=== PATIENT | female | born 1970 | race Hispanic/Latino ===

== ENCOUNTER 2020-01-22 07:59 | Outpatient (CLI) | payer OTHER, SELFPAY ==
--- NOTE | ~2020-01-22 | MM_ITS ---
EXAMINATION: MM screening [facility] w barbara HISTORY: Screening TECHNIQUE: Craniocaudal and mediolateral oblique 3-D tomosynthesis images were obtained and synthetic 2-D images were generated. CAD analysis was submitted and interpreted. COMPARISON: Comparison to multiple prior studies sequentially, with oldest reviewed study dated 11/15. BREAST PARENCHYMAL COMPOSITION: There are scattered areas of fibroglandular density. FINDINGS: There is no evidence of suspicious mass, calcification, or architectural distortion to sugg est malignancy in either breast. There has been no suspicious interval change. IMPRESSION: 1. No mammographic evidence of malignancy. 2. Recommend routine screening mammography in one year. BI-RADS Category 1: Negative Reviewed, dictated and finalized at location A. ENDOSCOPY
== END 2020-01-22 08:00 | disposition home or self-care (01) ==
PROVIDERS: PCP Registered Nurse; Visit Provider Registered Nurse
DX: Z12.31 Encounter for screening mammogram for malignant neoplasm of breast (principal)
CPT/HCPCS: 77063; 77067

== ENCOUNTER 2020-11-11 19:43 | Emergency (ER) | payer OTHER, SELFPAY ==
[2020-11-11 19:58] VITALS: BP 114/59; PULSE 80; RESP 16; TEMP 36.6; O2SAT 100
--- NOTE | 2020-11-11 21:12 | ED.SKABFB ---
HPI - Skin/Abscess/Foreign Bdy General Chief complaint: Skin/Abscess/Foreign Body Stated complaint: Rash Source: patient and RN notes reviewed Limitations: no limitations History of Present Illness HPI narrative: The patient, on several meds including oral diabetics, presents with skin eruption. Patient states she has about 1 to 2-week history of pink, itchy, eruption that began first on her pannus of her abdomen. Symptoms started to spread to the extremities despite topical steroid therapy called in by her primary doctor. No fever, discharge, abscess/induration, streaking, palmar/oral involvement ; symptoms mild worse scratching, hot shower Related Data Allergies Allergy/AdvReac Type Severity Reaction Status Date / Time No Known Allergies Allergy Unverified 01/21/18 13:07 Review of Systems Review of Systems: General/Constitutional: No weight loss fever Eyes: N0: Redness,discharge Ears/Nose/Throat: No: Epistaxis,ear discharge Respiratory: Denies: Hemoptysis Gastrointestinal: No Vomiting, Bleeding-rectal Skin: No Lumps, REPORTS eruption Neurologic: No Focal Weakness,Sz Hematologic: Denies: Petechiae/Purpura All Other Systems: Reviewed and Negative PMFSH Comments At time of signature, agree with nursing past medical, surgical, social and family history. There is no relevant family history pertinent to the presenting complaint Exam Narrative: General Appearance: Well nourished/ overweight, No distress EYE: PERRLA, Conjunctiva clear Ears: External ear normal Nose: Normal nose externally Mouth/Throat: Normal appearing, Normal lips, Neck: Supple Respiratory: Airway patent, No respiratory distress Cardiovascular: RRR Abdomen: Soft, Non-tender, Musculoskeletal: Full ROM Skin: Warm, Dry, blanching macular papular eruption on trunk, pannus, extremities Neurological: A&O x3, CN II-X intact Psychiatric: Normal mood, Normal affect Course Vital Signs Vital signs: Vital Signs Temperature 97.9 F 11/11/20 19:58 Pulse Rate 80 11/11/20 19:58 Respiratory Rate 16 11/11/20 19:58 Blood Pressure 114/59 L 11/11/20 19:58 Pulse Oximetry 100 11/11/20 19:58 Temperature 97.9 F 11/11/20 19:58 Pulse Rate 80 11/11/20 19:58 Respiratory Rate 16 11/11/20 19:58 Blood Pressure 114/59 L 11/11/20 19:58 Pulse Oximetry 100 11/11/20 19:58 Discharge Plan Discharge Clinical Impression: Folliculitis, Pruritic condition Patient Disposition: Home, Self-Care Condition: Stable Instructions: Folliculitis (ED) Additional Instructions: keep photo log of area See PMD for actual physical visit Prescriptions: New clindamycin HCl 300 mg capsule 300 mg PO TID Qty: 15 RF: 0 prednisone 20 mg tablet 60 mg PO DAILY PRN (Reason: itching) Qty: 9 RF: 0 fluconazole 150 mg tablet 150 mg PO WEEKLY Qty: 2 RF: 1 Follow-up/Referrals: Anne,DESTINEY Strong [Primary Care Provider] -
== END 2020-11-11 21:18 | disposition home or self-care (01) ==
PROVIDERS: Emergency Provider Emergency Medicine; PCP Registered Nurse
DX: L73.9 Follicular disorder, unspecified (principal); I10 Essential (primary) hypertension; E11.9 Type 2 diabetes mellitus without complications
CPT/HCPCS: 99213; G0463

== ENCOUNTER 2021-02-01 08:36 | Outpatient (CLI) | payer OTHER, SELFPAY ==
--- NOTE | ~2021-02-01 | MM_ITS ---
EXAMINATION: MM screening [facility] BI w barbara HISTORY: Screening mammogram TECHNIQUE: Craniocaudal and mediolateral oblique 3-D tomosynthesis images were obtained and synthetic 2-D images were generated. CAD analysis was submitted and interpreted. COMPARISON: 01/22/2020, 01/06/2019 BREAST PARENCHYMAL COMPOSITION: The breasts are heterogeneously dense, which may obscure small masses . FINDINGS: There is no evidence of suspicious mass, calcification, or architectural distortion to sugg est malignancy in either breast. There has been no suspicious interval change. IMPRESSION: 1. No mammographic evidence of malignancy. 2. Recommend routine screening mammography in one year. BI-RADS Category 1: Negative Reviewed, dictated and finalized at location A. TESTER
== END 2021-02-01 08:37 | disposition home or self-care (01) ==
LOC: ANHIMG 08:38
PROVIDERS: PCP Family Medicine; Visit Provider Family Medicine
DX: Z12.31 Encounter for screening mammogram for malignant neoplasm of breast (principal)
CPT/HCPCS: 77063; 77067

== ENCOUNTER 2021-02-25 00:04 | Day surgery (SDC) | payer OTHER, SELFPAY ==
[2021-02-05 14:35] VITALS: BMI 33.0
[2021-02-25 07:13] VITALS: BP 140/69; PULSE 80; RESP 16; TEMP 36.3; O2SAT 100
[2021-02-25] MEDS: LACTATED RINGERS 1,000 ML 150 ML IV CONT (07:16)
[2021-02-25 07:26] LABS: Glucose Point of Care 132 mg/dl (65-105)
--- NOTE | 2021-02-25 07:39 | WPDANESEPPF ---
Anes - Initial Pre Proc Eval Procedure: Operation Date: 02/25/21 08:30 Proposed Procedures p Screening Colonoscopy - Avtar Barlow MD Date/Time: 02/25/21 07:39 Surgeon: Avtar Barlow MD Pre Op Diagnosis: neoplasm screening Patient Data Age: 50 Gender: F Height: 1.57 m Weight: 82 kg Last Vital Signs Temp 36.3 C L 02/25/21 07:13 Pulse 80 02/25/21 07:13 Resp 16 02/25/21 07:13 BP 140/69 02/25/21 07:13 Pulse Ox 100 02/25/21 07:13 Allergies Allergy/AdvReac Type Severity Reaction Status Date / Time No Known Allergies Allergy Unverified 02/25/21 07:11 Home Medications Medication Instructions Recorded Confirmed Type amlodipine 10 mg PO DAILY 02/05/21 02/25/21 History aspirin 81 mg PO DAILY 02/05/21 02/25/21 History atorvastatin 40 mg PO DAILY 02/05/21 02/25/21 History carvedilol 25 mg PO BID 02/05/21 02/25/21 History chlorthalidone 25 mg PO DAILY 02/05/21 02/25/21 History clopidogrel 75 mg PO DAILY 02/05/21 02/25/21 History ferrous sulfate [FeroSul] 325 mg PO DAILY 02/05/21 02/25/21 History fluoxetine 40 mg PO DAILY 02/05/21 02/25/21 History glipizide 10 mg PO DAILY 02/05/21 02/25/21 History irbesartan 300 mg PO DAILY 02/05/21 02/25/21 History linagliptin [Tradjenta] 5 mg PO DAILY 02/05/21 02/25/21 History metformin 500 mg PO BID 02/05/21 02/25/21 History Laboratory Tests 02/25/21 07:16 POC Capillary Glucose 132 mg/dl H mg/dl (65-105) Patient hx anesthesia problems: none Family hx anesthesia problems: none Results Review: All pre-operative results and documents have been reviewed as part of the pre-operative evaluation. [facility]LY [facility] Past Medical History Medical History (Updated 02/25/21 @ 07:40 by Colton Borges MD) Diabetes History of CVA (cerebrovascular accident) HTN (hypertension) Hyperlipidemia Obesity Social History Social History Smoking status: Never smoker Alcohol intake: never Substance use: never Substance use type: does not use Living arrangements: with family Spiritual care concerns: No Anes - Eval Final PreProcedure Day of Procedure 02/25/21 07:39 Patient weight: obese Heart: regular rate and rhythm Lungs: clear to auscultation Airway: Mallampati scale class II Neurological: alert and oriented Last oral intake: >/= 8 hours ASA classification: III Emergent: no Anesthetic plan: proceed Anesthesia type and monitoring: general GIVS and standard monitoring Results Review: All pre-operative results and documents have been reviewed as part of the pre-operative evaluation. Informed Consent: The patient's anesthetic plan and its attendant risks and benefits were discussed with the patient/family/POA. Questions were solicited and answers provided to the satisfaction of the patient/family/POA.
--- NOTE | 2021-02-25 07:54 | PM.HPGS ---
History of Present Illness History of Present Illness Consent: Risks, benefits, and alternatives have been discussed and questions answered. Patient agrees to proceed with procedure. Chief complaint: neoplasm screening Narrative: Salome Rush is a 50 year old female here for first screening colonoscopy Review of Systems Constitutional: Constitutional: Denies headache(s) and Denies weakness Eyes: Eyes: Denies blurry vision ENT: Reports Normal hearing present, Denies headache(s) and Denies neck pain Cardiovascular: Cardiovascular: Denies chest pain and Denies dyspnea Respiratory: Respiratory: Denies dyspnea Gastrointestinal: Gastrointestinal: Reports no additional gastrointestinal complaints Genitourinary: Genitourinary: Denies dysuria Musculoskeletal: Musculoskeletal: Denies neck pain Integumentary/Breasts: Skin/Breast: Denies dry skin Neurologic: Reports Normal hearing present, Denies headache(s) and Denies weakness Psychiatric: Psychiatric: Denies anxiety Endocrine: Endocrine: Denies change in body appearance Hematologic/Lymphatic: Hematologic/Lymphatic: Denies easy bleeding Allergic/Immunologic: Allergic/Immunologic: Denies urticaria PMF Past Medical History Medical History (Updated 02/25/21 @ 07:54 by Avtar Barlow MD) Colon cancer screening Diabetes History of CVA (cerebrovascular accident) HTN (hypertension) Hyperlipidemia Obesity Social History Social History Smoking status: Never smoker Alcohol intake: never Substance use: never Substance use type: does not use Living arrangements: with family Spiritual care concerns: No Meds Home Medications and Allergies Home Medications Medication Instructions Recorded Confirmed Type amlodipine 10 mg PO DAILY 02/05/21 02/25/21 History aspirin 81 mg PO DAILY 02/05/21 02/25/21 History atorvastatin 40 mg PO DAILY 02/05/21 02/25/21 History carvedilol 25 mg PO BID 02/05/21 02/25/21 History chlorthalidone 25 mg PO DAILY 02/05/21 02/25/21 History clopidogrel 75 mg PO DAILY 02/05/21 02/25/21 History ferrous sulfate [FeroSul] 325 mg PO DAILY 02/05/21 02/25/21 History fluoxetine 40 mg PO DAILY 02/05/21 02/25/21 History glipizide 10 mg PO DAILY 02/05/21 02/25/21 History irbesartan 300 mg PO DAILY 02/05/21 02/25/21 History linagliptin [Tradjenta] 5 mg PO DAILY 02/05/21 02/25/21 History metformin 500 mg PO BID 02/05/21 02/25/21 History Allergies Allergy/AdvReac Type Severity Reaction Status Date / Time No Known Allergies Allergy Unverified 02/25/21 07:11 Vital Signs Vital Signs - 24 hr 02/25/21 07:13 Temperature 97.3 F L Pulse Rate 80 Respiratory Rate 16 Blood Pressure 140/69 Pulse Oximetry 100 Exam Const: General: comfortable and no acute distress HENMT: General nose exam: Normal nares present Eyes: General: appearance normal, both eyes and all related structures Neck: Neck: no JVD Resp: Auscultation: clear to auscultation bilaterally Cardio: Rate: regular rate Rhythm: regular rhythm GI: Inspection: non-distended GI Palp: Yes Soft to palpation Skin: General skin exam: normal color Neuro: General: gait normal Speech: normal speech Extrem: General: normal to inspection Psych: Mental Status: mental status grossly normal Assessment and Plan Assessment and plan (1) Colon cancer screening: Code(s): Z12.11 - Encounter for screening for malignant neoplasm of colon Status: Acute Assessment and Plan: colonoscopy
[2021-02-25 08:11] VITALS: BP 84/44; PULSE 78; RESP 26; O2SAT 98
[2021-02-25 08:21] VITALS: BP 103/56; PULSE 74; RESP 25; O2SAT 95
--- NOTE | 2021-02-25 08:28 | SUR.PHASEII ---
Per Dr. Levy, pt can restart plavix today.
[2021-02-25 08:31] VITALS: BP 114/66; PULSE 65; RESP 21; O2SAT 99
== END 2021-02-25 08:47 | disposition home or self-care (01) ==
PROVIDERS: PCP Family Medicine; Visit Provider Internal Medicine Gastroenterology
PROC: 0DJD8ZZ Inspection of Lower Intestinal Tract, Via Natural or Artificial Opening Endoscopic (ICD-10-PCS; CPT 45378; principal; 2021-02-25 08:30)
DX: Z12.11 Encounter for screening for malignant neoplasm of colon (principal); K57.30 Diverticulosis of large intestine without perforation or abscess without bleeding; K64.8 Other hemorrhoids; E11.9 Type 2 diabetes mellitus without complications; Z86.73 Personal history of transient ischemic attack (TIA), and cerebral infarction without residual deficits; Z79.82 Long term (current) use of aspirin; Z79.84 Long term (current) use of oral hypoglycemic drugs; I10 Essential (primary) hypertension; E78.5 Hyperlipidemia, unspecified; E66.9 Obesity, unspecified; Z68.33 Body mass index [BMI] 33.0-33.9, adult
CPT/HCPCS: G0121; 82948; J2704; J7120

== ENCOUNTER 2021-07-28 01:24 | Emergency (ER) | payer OTHER, SELFPAY ==
[2021-07-28] VITALS (17 sets, daily range): BP systolic 105–159; BP diastolic 41–71; PULSE 98–114; RESP 21–30; TEMP 38.3–39.5; O2SAT 94–100
--- NOTE | ~2021-07-28 | XR_ITS ---
EXAMINATION: XR chest 1V portable DATE: 07/28/2021 02:25 INDICATION: Fever. TECHNIQUE: A single frontal view of the chest was obtained. COMPARISON: Chest single view 01/21/2018, chest CT 07/21/2014 FINDINGS: The chest demonstrates clear lungs without pneumonia, pleural effusion, or pneumothorax. Th e heart size is normal. IMPRESSION: 1. No acute cardiopulmonary disease. Reviewed, dictated and finalized at location B.
--- NOTE | 2021-07-28 01:41 | PC.NURSE ---
Pt to ED 13 in . reports since she was returning from a road trip today, she has had pain to her right leg from hip to posterior ankle, as well as chills. on arrival, pt's temp 103.1F oral, hr 113. Hx of cva, but pt denies numbness or one-sided weakness today. denies known sick contacts.
[2021-07-28] MEDS: ACETAMINOPHEN 500 MG TABLET 1000 MG PO (01:52)
[2021-07-28] MEDS: SODIUM CHLORIDE 0.9% IV 1,000 ML 999 ML IV CONT (01:53)
--- NOTE | 2021-07-28 01:55 | ECG_ITS ---
Measurements Intervals Burket Rate: 120 P: 31 PA: 132 QRS: 6 QRSD: 90 T: 59 QT: 341 QTc: 483 Interpretive Statements SINUS TACHYCARDIA LEFT VENTRICULAR HYPERTROPHY AND ST-T CHANGE [VOLTAGE CRITERIA PLUS ST/T ABNORMALITY] ABNORMAL ECG NO PREVIOUS ECG AVAILABLE FOR COMPARISON Electronically Signed On 07-28-2021 12:38:54 CDT by Roddy Quan M.D.
[2021-07-28 01:57] LABS: Basophils Percent Auto 0.2 % (0.2-1.2); Eosinophils Percent Auto 0.4 % (0-4.4); Hematocrit 31.6 % (37.0-47.0); Hemoglobin 9.9 g/dL (12.0-15.0); Immature Granulocyte Absolute 0.04 K/mm3 (0.00-0.031); Immature Granulocyte Percent A 0.4 % (0-0.5); Lymphocytes Absolute Auto 0.51 K/mm3 (0.9-3.2); Lymphocytes Percent Auto 4.5 % (18.3-44.2); Mean Corpuscular HGB Conc 31.3 g/dl (32-36); Mean Corpuscular Hemoglobin 25.2 pg (26-34); Mean Corpuscular Volume 80.4 fl (80-100); Mean Platelet Volume 12.8 fl (7.4-10.4); Monocytes Absolute Auto 0.8 K/mm3 (0.1-0.6); Monocytes Percent Auto 7.3 % (2.6-8.5); Neutrophils Absolute Auto 9.9 K/mm3 (1.3-6.7); Neutrophils Percent Auto 87.2 % (45.5-73.1); Platelet Count Result 213 k/mm3 (150-375); Red Blood Count 3.93 M/mm3 (4.2-5.4); Red Cell Distribution Width 14.4 % (11.5-14.5); White Blood Count 11.4 K/mm3 (4.5-10.0)
[2021-07-28 02:27] LABS: Anion Gap 8 mmol/L (8-16); Blood Urea Nitrogen 18 mg/dL (7-17); Calcium 8.3 mg/dL (8.4-10.2); Carbon Dioxide 27 mmol/L (22-30); Chloride 98 mmol/L (98-107); Estimated CRCL calculation 64 ml/min; Estimated Glomerular Filt Rate > 60; Glucose 294 mg/dL (65-110); Potassium 3.9 mmol/L (3.4-5.0); Sodium 133 mmol/L (137-145)
[2021-07-28 02:44] LABS: Influenza A QL RT-PCR Negative (Negative); Influenza B QL RT-PCR Negative (Negative); SARS-CoV-2 RNA PCR Negative
[2021-07-28 03:01] LABS: Appearance Urine Clear (Clear); Bilirubin Urine Negative (Negative); Blood Urine Negative (Negative); Color Urine Yellow (Yellow); Glucose Urine UA 3+ mg/dL (Negative); Ketones Urine Negative (Negative); Leukocyte Esterase Ur Negative LEU/UL (Negative); Nitrate Urine Negative (Negative); Protein Urine Negative (Negative); Specific Grav Ur 1.015 (1.001-1.035); pH Urine 7.5 (5.0-9.0)
[2021-07-28 03:06] LABS: Mucus Urine Rare /lpf; RBC Urine 0-2 /hpf (0-2); Squamous Epithelial Cell Urine Rare /hpf (Few); WBC Urine 0-3 /hpf
[2021-07-28 03:08] LABS: Add Urine Microscopic? YES
--- NOTE | 2021-07-28 04:35 | ED.FEVER ---
HPI - Fever General Chief Complaint: Fever Stated Complaint: DIZZINESS Time Seen by Provider: 07/28/21 01:28 History of Present Illness HPI Narrative: Patient is a 50-year-old female who presents ER with shaking chills. Reported occurred earlier in this evening. 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 No known sick contacts but has been traveling recently. Did not temperature at home and is unsure if she is febrile. No runny nose or sore throat or productive cough. Denies nausea or vomiting or diarrhea. No urinary frequency urgency or dysuria. Patient reports she then felt very anxious and was thinking about how she had a stroke several years back and did not come to the hospital on time. At that time she had had some right-sided numbness which she is not having at this time. She also does not report any dizziness to me despite having reported at triage. Related Data Home Medications Medication Instructions Recorded Confirmed amlodipine 10 mg tablet 10 mg PO DAILY 02/05/21 02/25/21 aspirin 81 mg tablet,delayed 81 mg PO DAILY 02/05/21 02/25/21 release atorvastatin 40 mg tablet 40 mg PO DAILY 02/05/21 02/25/21 carvedilol 25 mg tablet 25 mg PO BID 02/05/21 02/25/21 chlorthalidone 25 mg tablet 25 mg PO DAILY 02/05/21 02/25/21 clopidogrel 75 mg tablet 75 mg PO DAILY 02/05/21 02/25/21 ferrous sulfate 325 mg (65 mg 325 mg PO DAILY 02/05/21 02/25/21 iron) tablet (FeroSul) fluoxetine 40 mg capsule 40 mg PO DAILY 02/05/21 02/25/21 glipizide 10 mg tablet, extended 10 mg PO DAILY 02/05/21 02/25/21 release 24 hr irbesartan 300 mg tablet 300 mg PO DAILY 02/05/21 02/25/21 linagliptin 5 mg tablet (Tradjenta) 5 mg PO DAILY 02/05/21 02/25/21 metformin 500 mg tablet,extended 500 mg PO BID 02/05/21 02/25/21 release 24 hr Allergies Allergy/AdvReac Type Severity Reaction Status Date / Time No Known Allergies Allergy Verified 07/28/21 01:43 Review of Systems Review of Systems: All systems reviewed & are unremarkable except as noted in HPI and below Constitutional: Constitutional: Reports chills and Denies fever(s) ENT: Denies nasal congestion and Denies sore throat Cardiovascular: Cardiovascular: Denies chest pain, Denies rapid heart rate and Denies slow heart rate Respiratory: Respiratory: Denies cough and Denies dyspnea Gastrointestinal: Gastrointestinal: Denies abdominal pain, Denies nausea and Denies vomiting Genitourinary: Genitourinary: Denies nocturia and Denies dysuria Musculoskeletal: Musculoskeletal: Denies back pain and Denies myalgias Integumentary/Breasts: Skin/Breast: Reports pruritus, Denies erythema and Reports rash Psychiatric: Psychiatric: Reports anxiety PMFSH Past Medical History Medical History (Updated 07/28/21 @ 04:55 by Lorenzo Castro MD) Colon cancer screening Diabetes History of CVA (cerebrovascular accident) HTN (hypertension) Hyperlipidemia Obesity Surgical History Surgical History (Updated 07/28/21 @ 04:51 by Lorenzo Castro MD) History of section History of cholecystectomy Social History Social History Smoking status: Never smoker Alcohol intake: never Substance use: never Substance use type: does not use Spiritual care concerns: No Exam Narrative: GENERAL: Well-appearing, well-nourished, and in no acute distress. HEAD: Normocephalic, atraumatic. ENT: Mucous membranes moist. NECK: Supple. CHEST: Clear to auscultation. No respiratory distress. HEART: Regular rate and rhythm. Normal peripheral pulses. ABDOMEN: Soft, nontender, nondistended. No CVA tenderness. Back: No reproducible tenderness midline spine or paraspinal muscles. No rash noted. EXTREMITIES: Normal range of motion. No edema. SKIN: Warm, dry. Remnants of folliculitis lower abdomen with scabbed over hair follicles. No cellulitis or pustules. NEURO: Alert and oriented x3. No upper extremity drift. Right lower
== END 2021-07-28 05:23 | disposition home or self-care (01) ==
PROVIDERS: Emergency Provider Emergency Medicine; PCP Family Medicine
DX: B34.9 Viral infection, unspecified (principal); E11.65 Type 2 diabetes mellitus with hyperglycemia; I10 Essential (primary) hypertension; E78.5 Hyperlipidemia, unspecified; Z86.73 Personal history of transient ischemic attack (TIA), and cerebral infarction without residual deficits; Z20.822 Contact with and (suspected) exposure to COVID-19
CPT/HCPCS: 36415; 71045; 80048; 81001; 85025; 87502; 93005; 96360; 99283; A9270; C9803; J7030; U0003; U0005

== ENCOUNTER 2024-05-18 17:09 | Emergency (ER) | payer MEDICARE, SELFPAY ==
--- NOTE | 2024-05-18 17:12 | ED_ITS ---
HPI - Extremity Problem General Chief complaint: Extremity Problem,Nontraumatic Stated complaint: Right Leg Pain Time Seen by Provider: 05/18/24 17:12 Source: patient Mode of arrival: ambulatory Limitations: no limitations History of Present Illness HPI Narrative: Patient is a 53-year-old female who presents with right low back pain that radiates down right leg. Denies any numbness, tingling. Does report inter mittent weakness with back spasms. Patient was moving a heavy table prior to pain starting. Denies any loss of bowel or bladder. Related Data Home Medications ?Medication ?Instructions ?Recorded ?Confirmed ?Last Taken ?Type amlodipine 10 mg tablet 10 mg PO DAILY 02/05/21 02/25/21 Unknown History aspirin 81 mg tablet,delayed 81 mg PO DAILY 02/05/21 02/25/21 Unknown History release atorvastatin 40 mg tablet 40 mg PO DAILY 02/05/21 02/25/21 Unknown History carvedilol 25 mg tablet 25 mg PO BID 02/05/21 02/25/21 Unknown History chlorthalidone 25 mg tablet 25 mg PO DAILY 02/05/21 02/25/21 Unknown History clopidogrel 75 mg tablet 75 mg PO DAILY 02/05/21 02/25/21 02/20/21 History ferrous sulfate 325 mg (65 mg 325 mg PO DAILY 02/05/21 02/25/21 Unknown History iron) tablet (FeroSul) fluoxetine 40 mg capsule 40 mg PO DAILY 02/05/21 02/25/21 Unknown History glipizide 10 mg tablet, extended 10 mg PO DAILY 02/05/21 02/25/21 Unknown History release 24 hr irbesartan 300 mg tablet 300 mg PO DAILY 02/05/21 02/25/21 Unknown History linagliptin 5 mg tablet (Tradjenta) 5 mg PO DAILY 02/05/21 02/25/21 Unknown History metformin 500 mg tablet,extended 500 mg PO BID 02/05/21 02/25/21 Unknown History release 24 hr clonazepam 1 mg tablet mg 05/18/24 Unknown History ergocalciferol (vitamin D2) 1,250 05/18/24 Unknown History mcg (50,000 unit) capsule Allergies Allergy/AdvReac Type Severity Reaction Status Date / Time No Known Allergies Allergy Verified 05/18/24 17:11 Review of Systems Review of Systems: All systems reviewed & are unremarkable except as noted in HPI and below Constitutional: Constitutional: Denies body ache(s), Denies chills, Denies fatigue, Denies fever(s), Denies headache(s), Denies malaise and Denies weakness Eyes: Eyes: Denies blurry vision, Denies irritation and Denies loss of vision ENT: Denies otalgia, Denies headache(s), Denies nasal discharge, Denies sinus pain and Denies sore throat Cardiovascular: Cardiovascular: Denies chest pain, Denies irregular heart rhythm and Denies dyspnea Respiratory: Respiratory: Denies dyspnea Gastrointestinal: Gastrointestinal: Denies abdominal pain, Denies melena, Denies hematochezia, Denies diarrhea, Denies nausea and Denies vomiting Musculoskeletal: Musculoskeletal: Reports back pain, Denies myalgias, Denies arthralgias and Reports other (leg pain) Integumentary/Breasts: Skin/Breast: Denies pruritus and Denies rash Neurologic: Denies headache(s), Denies loss of vision and Denies weakness Psychiatric: Psychiatric: Reports no additional psychiatric complaints Endocrine: Endocrine: Denies fatigue PMFSH Past Medical History Medical History Colon cancer screening Diabetes Hyperlipidemia HTN (hypertension) History of CVA (cerebrovascular accident) Obesity Surgical History Surgical History History of section History of cholecystectomy Social History Social History Smoking status: Never smoker Alcohol intake: never Substance use: never Substance use type: does not use Living arrangements: with family Spiritual care concerns: No Comments At time of signature, agree with nursing past medical, surgical, social and family history. There is no relevant family history pertinent to the presenting complaint. Exam Const: General: cooperative, healthy appearing, comfortable, no acute distress and well nourished Nutritional Appearance: well nourished Orientation/consciousness: patient oriented x3 Limitations: no limitations HENMT: Head: normal to inspection, normocephalic and atraumatic Ears: hearing grossly normal bilaterally and external ears normal Face/Nose/Sinus: Normal external nose present, normal facial exam and face symmetric Face and sinus: normal facial exam and face symmetric Mouth: Yes lip normal Eyes: General: appearance normal, both eyes and all related structures Alignment and Position: alignment normal and position normal Periorbital: periorbital findings normal Eyelids: eyelids normal Pupils: Equal, round and reactive pupils present EOM: EOMs intact bilaterally Neck: Neck: normal visual inspection, full ROM and supple Chest: Chest palpation & inspection: normal inspection of the chest Resp: Effort & Inspection: normal respiratory effort and able to speak in complete sentences Auscultation: clear to auscultation bilaterally Cardio: Rate: regular rate Rhythm: regular rhythm Heart sounds: S1 normal heart sound present and S2 normal heart sound present GI: Inspection: normal to inspection Back/Spine/Pelvis: Thoracic/Lumbar Spine: pain with thoraco-lumbar ROM, paraspinal muscle tenderness on the right in the lower lumbar, No thoracic spinal tenderness and No lumbar spinal tenderness Pelvis: buttock tenderness on the right and sciatic notch tenderness on the right Skin: General skin exam: normal color and no rashes or lesions noted Neuro: General: patient oriented x3 and moves all extremities Cranial nerves: Yes Equal, round and reactive pupils present Speech: normal speech Gait exam (Neuro): Normal gait present Extrem: General: normal to inspection, full ROM and no edema Psych: Appearance: grossly normal and well kempt Mental Status: mental status grossly normal Speech and movement: Normal speech and movement present Affect: normal affect Attitude: cooperative Thought process: Normal thought process present Course Course Emergency Course: Patient is aware of diagnosis, understands and agrees to treatment plan. Anticipatory guidance given. Patient agrees to follow-up as directed and is aware of reasons to seek care at the emergency department. Portions of this record may have been created with voice recognition software Level of Care: Express Care Visit Vital Signs Vital signs: Reviewed MDM - Extremity (Nontraumatic) MDM Narrative Medical decision making narrative: No risk factors or findings concerning for epidural abscess, diskitis, vertebral osteomyelitis, cord compression, cauda equina, vertebral fracture or bone malignancy, AAA, or pyelonephritis. Patient instructed to consider further imaging and workup through their primary care physician as an outpatient if symptoms persist. Pt well hydrated appearing, in no respiratory distress, hemodynamically stable. Recommend supportive care. The patient is stable at time of discharge the clinical impression was discussed and the patient was given the opportunity to ask questions, which were addressed as completely as possible given the information available at present. Anticipatory guidance and return to care precautions were discussed and the importance of primary care follow-up was s tressed and encouraged. The patient voiced understanding of the plan, indications to return, and the need for follow-up. Exam findings show no acute concerns or changes Patient is appropriate for outpatient treatment and follow-up. Differential Diagnosis Differential diagnosis: Likely other ( lumbar strain, sciatica, lumbar radiculopathy. ) Discharge Plan Discharge Clinical Impression: Sciatica Qualifiers: Laterality: right Qualified Code(s): M54.31 - Sciatica, right side Patient Disposition: Home, Self-Care Condition: Stable Instructions: Sciatica (ED), Lower Back Exercises (ED) Additional Instructions: Take steroids in the morning with food. take muscle relaxers every 8 hours as needed for muscle spasm. do not drive or make any important decisions while on this medication for it can make you drowsy Exercise:Combine aerobic exercise, like walking or swimming, with specific exercises to keep the muscles in your back and abdomen strong and flexible.bed rest is not recommended. Proper Lifting:Be sure to lift heavy items with your legs, not your back. Do not bend over to pick something up. Keep your back straight and bend at your knees. Weight:Maintain a healthy weight. Being overweight puts added stress on your lower back. Avoid Smoking:Both the smoke and the nicotine cause your spine to age faster than normal. Proper Posture:Good posture is important for avoiding future problems. A therapist can teach you how to safely stand, sit, and lift. Use warm moist heat or ice to help with pain. Follow up with Primary provider in 2-3 days, This may become a chronic condition and they will be the one to help manage your pain and order additional testing. Follow-up with your doctor for further care and evaluation or seek ER if you develop problems with bladder/bowel function, weakness or loss of feeling in one or both of your legs. Patient Language: Jamaican Prescriptions: New prednisone 20 mg tablet 40 mg PO DAILY 5 Days Qty: 10 0RF baclofen 10 mg tablet 10 mg PO TID 5 Days Qty: 15 0RF lidocaine 5 % adhesive patch,medicated 1 patch topical DAILY Qty: 15 0RF Rx Instructions: leave on most painful area for up to 12 hrs No Action clonazepam 1 mg tablet ergocalciferol (vitamin D2) 1,250 mcg (50,000 unit) capsule fluoxetine 40 mg capsule 40 mg PO DAILY atorvastatin 40 mg tablet 40 mg PO DAILY carvedilol 25 mg tablet 25 mg PO BID glipizide 10 mg tablet extended release 24hr 10 mg PO DAILY clopidogrel 75 mg tablet 75 mg PO DAILY chlorthalidone 25 mg tablet 25 mg PO DAILY aspirin 81 mg tablet,delayed release (DR/EC) 81 mg PO DAILY amlodipine 10 mg tablet 10 mg PO DAILY ferrous sulfate [FeroSul] 325 mg (65 mg iron) tablet 325 mg PO DAILY metformin 500 mg tablet extended release 24 hr 500 mg PO BID irbesartan 300 mg tablet 300 mg PO DAILY Tradjenta 5 mg tablet 5 mg PO DAILY Follow-up/Referrals: Agapito,Salome Maria NP [Primary Care Provider] - 3 Days Time of Disposition: 17:28
[2024-05-18 17:13] VITALS: BP 143/60; PULSE 73; RESP 19; TEMP 36.6; O2SAT 98
== END 2024-05-18 17:35 | disposition home or self-care (01) ==
PROVIDERS: Emergency Provider Nurse Practitioner Family; PCP Nurse Practitioner Family
DX: M54.31 Sciatica, right side (principal); E11.9 Type 2 diabetes mellitus without complications; Z79.84 Long term (current) use of oral hypoglycemic drugs; I10 Essential (primary) hypertension; E78.5 Hyperlipidemia, unspecified; E66.9 Obesity, unspecified; Z68.34 Body mass index [BMI] 34.0-34.9, adult; Z86.73 Personal history of transient ischemic attack (TIA), and cerebral infarction without residual deficits; Z79.82 Long term (current) use of aspirin
CPT/HCPCS: 99213; G0463

== ENCOUNTER 2024-05-23 14:37 | Emergency (ER) | payer MEDICARE, SELFPAY ==
--- NOTE | ~2024-05-23 | CT_ITS ---
EXAMINATION: CT lumbar spine wo con DATE: 05/23/2024 16:06 INDICATION: Right lower back pain radiating down the leg TECHNIQUE: Computed tomography (CT) of the lumbar spine was performed without intravenous contrast. A utomated exposure control and iterative reconstruction technique were employed. The dose-length produ ct was 927.99 mGy-cm. COMPARISON: None FINDINGS: Alignment is normal. Vertebral body heights are normal. No fracture. Mild disc height loss at T11-T12. Partially visualized large bilobed mass in the pelvis which extends beyond the field-of-v iew measuring at least 11.8 x 7.7 cm. Based on prior CT dated 07/21/2014. Represent the uterus and a la rge pedunculated uterine fibroid. Mild to moderate bilateral sacroiliac osteoarthritis. The following disc levels are specifically discussed: T11-T12: Small bridging posterior endplate osteophytes. There is moderate bilateral facet joint osteo arthritis. There is no neural foraminal stenosis. There is mild to moderate central canal stenosis. T12-L1: The disc does not extend beyond the endplate margin. There is mild bilateral facet joint oste oarthritis. There is some ossification along the left ligamentum flavum. There is mild left neural fo raminal stenosis. There is mild central canal stenosis. L1-L2: Disc is bulging. There is mild bilateral facet joint osteoarthritis. There is altered left and minimal right neural foraminal stenosis. There is mild central canal stenosis. L2-L3: Disc is bulging. There is mild bilateral facet joint osteoarthritis. There is mild bilateral n eural foraminal stenosis. There is mild central canal stenosis. L3-L4: Disc is bulging. There is severe bilateral facet joint osteoarthritis. There is mild bilateral neural foraminal stenosis. There is mild to moderate central canal stenosis. L4-L5: Disc is bulging. There is mild bilateral facet joint osteoarthritis. There is mild to moderate bilateral neural foraminal stenosis. There is mild central canal stenosis. L5-S1: Disc is bulging. There is moderate bilateral facet joint osteoarthritis. There is mild bilater al neural foraminal stenosis. There is no central canal stenosis. IMPRESSION: 1. Mild lumbar spondylosis. No acute osseous abnormality. 2. Partially visualized large pedunculated uterine fibroid. Reviewed, dictated and finalized at location B.
[2024-05-23 14:43] VITALS: BP 118/49; PULSE 75; RESP 20; TEMP 36.4; O2SAT 99
--- NOTE | 2024-05-23 15:25 | ED_ITS ---
HPI - General Adult General Chief complaint: Unspecified <Rachael Marshall PA-C - Last Filed: 05/26/24 17:49> Stated complaint: weakness in the legs, recently dx with sciatica <Rachael Marshall PA-C - Last Filed: 05/26/24 17:49> Time Seen by Provider: 05/23/24 15:25 <Rachael Marshall PA-C - Last Filed: 05/26/24 17:49> Focused HPI: This is a 53 year old female that presents to the ER for sciatica diagnosed by urgent care. Reports on the right side pain from the hip down the leg. Reports she was given pain medication, steroid, patch. Reports she feels like she has weakness in her right leg. Reports it has caused her to fall. Denies saddle anesthesia, bowel/bladder incontinence. GENERAL: Well-appearing, well-nourished, and in no acute distress. HEAD: Normocephalic, atraumatic. CHEST: Clear to auscultation. ?No respiratory distress. HEART: Regular rate and rhythm.? NEURO: ?Alert and oriented x3. Normal gait Patient screened in triage and initial orders placed.? ?Additional care and disposition to be based upon?diagnostic testing and treatment. <Rachael Marshall PA-C - Last Filed: 05/26/24 17:49> History of Present Illness HPI narrative: Agree with HPI. Patient reports that her leg is felt weaker in her falling give initially when she started having her pain She still feels like she has some weakness even though her pain is improving with medication. She would like refill of medication. She called her PCP who recommend she come here to get a scan. <Lorenzo Castro MD - Last Filed: 05/23/24 19:33> Related Data Home medications: Home Medications ?Medication ?Instructions ?Recorded ?Confirmed ?Last Taken ?Type amlodipine 10 mg tablet 10 mg PO DAILY 02/05/21 02/25/21 Unknown History aspirin 81 mg tablet,delayed 81 mg PO DAILY 02/05/21 02/25/21 Unknown History release atorvastatin 40 mg tablet 40 mg PO DAILY 02/05/21 02/25/21 Unknown History carvedilol 25 mg tablet 25 mg PO BID 02/05/21 02/25/21 Unknown History chlorthalidone 25 mg tablet 25 mg PO DAILY 02/05/21 02/25/21 Unknown History clopidogrel 75 mg tablet 75 mg PO DAILY 02/05/21 02/25/21 02/20/21 History ferrous sulfate 325 mg (65 mg 325 mg PO DAILY 02/05/21 02/25/21 Unknown History iron) tablet (FeroSul) fluoxetine 40 mg capsule 40 mg PO DAILY 02/05/21 02/25/21 Unknown History glipizide 10 mg tablet, extended 10 mg PO DAILY 02/05/21 02/25/21 Unknown History release 24 hr irbesartan 300 mg tablet 300 mg PO DAILY 02/05/21 02/25/21 Unknown History linagliptin 5 mg tablet (Tradjenta) 5 mg PO DAILY 02/05/21 02/25/21 Unknown History metformin 500 mg tablet,extended 500 mg PO BID 02/05/21 02/25/21 Unknown History release 24 hr clonazepam 1 mg tablet mg 05/18/24 Unknown History ergocalciferol (vitamin D2) 1,250 05/18/24 Unknown History mcg (50,000 unit) capsule <Rachael Marshall PA-C - Last Filed: 05/26/24 17:49> Allergies/adverse reactions: Allergies Allergy/AdvReac Type Severity Reaction Status Date / Time No Known Allergies Allergy Verified 05/18/24 17:11 <Rachael Marshall PA-C - Last Filed: 05/26/24 17:49> Review of Systems 2 Review of Systems: All systems reviewed & are unremarkable except as noted in HPI and below <Lorenzo Castro MD - Last Filed: 05/23/24 19:33> Constitutional: Constitutional: Reports no additional constitutional complaints <Lorenzo Castro MD - Last Filed: 05/23/24 19:33> ENT: Reports system reviewed and no additional complaints, except as documented <Lorenzo Castro MD - Last Filed: 05/23/24 19:33> Cardiovascular: Cardiovascular: Reports no additional cardiovascular complaints <Lorenzo Castro MD - Last Filed: 05/23/24 19:33> Respiratory: Respiratory: Reports no additional respiratory complaints <Lorenzo Castro MD - Last Filed: 05/23/24 19:33> Gastrointestinal: Gastrointestinal: Reports no additional gastrointestinal complaints <Lorenzo Castro MD - Last Filed: 05/23/24 19:33> PMFSH Past Medical History Medical History: Medical History Colon cancer screening Diabetes Hyperlipidemia HTN (hypertension) History of CVA (cerebrovascular accident) Obesity <Rachael Marshall PA-C - Last Filed: 05/26/24 17:49> Surgical History Surgical History: Surgical History History of section History of cholecystectomy <Rachael Marshall PA-C - Last Filed: 05/26/24 17:49> Social History Social History: Social History Smoking status: Never smoker Alcohol intake: never Substance use: never Substance use type: does not use Living arrangements: with family Spiritual care concerns: No <Rachael Marshall PA-C - Last Filed: 05/26/24 17:49> Exam Narrative: GENERAL: Well-appearing, well-nourished, and in no acute distress. HEAD: Normocephalic, atraumatic. ENT: Mucous membranes moist. Back: No midline tenderness the T/L-spine. There is right-sided SI region tenderness that reproduces patient's discomfort. EXTREMITIES: Normal range of motion. No edema. Excellent strength with leg extension RLE but has chronic right sided weakness from stroke. SKIN: Warm, dry, no rash. NEURO: Alert and oriented x3. PSYCH: Normal mood and affect. <Lorenzo Castro MD - Last Filed: 05/23/24 19:33> Course Course Emergency Course: Educated on imaging results. Follow-up with PCP, likely needs physical therapy. If symptoms do not improve MRI. No saddle anesthesia or fevers or trauma. Patient verbalized understanding. Will refill baclofen but not prednisone, recommend [id number] anti-inflammatories but discussed bleeding risk of gastric ulcer. I have encouraged her to use a cane to avoid falling. <Lorenzo Castro MD - Last Filed: 05/23/24 19:33> Vital Signs Vital signs: Vital Signs Temperature 97.6 F 05/23/24 14:43 Pulse Rate 75 05/23/24 14:43 Respiratory Rate 20 05/23/24 14:43 Blood Pressure 118/49 L 05/23/24 14:43 Pulse Oximetry 99 05/23/24 14:43 Temperature 98.1 F 05/23/24 20:01 Pulse Rate 68 05/23/24 20:01 Respiratory Rate 16 05/23/24 20:01 Blood Pressure 115/73 05/23/24 20:01 Pulse Oximetry 100 05/23/24 20:01 <Rachael Marshall PA-C - Last Filed: 05/26/24 17:49> Vital Signs Temperature 97.6 F 05/23/24 14:43 Pulse Rate 75 05/23/24 14:43 Respiratory Rate 20 05/23/24 14:43 Blood Pressure 118/49 L 05/23/24 14:43 Pulse Oximetry 99 05/23/24 14:43 Temperature 98.1 F 05/23/24 20:01 Pulse Rate 68 05/23/24 20:01 Respiratory Rate 16 05/23/24 20:01 Blood Pressure 115/73 05/23/24 20:01 Pulse Oximetry 100 05/23/24 20:01 <Lorenzo Castro MD - Last Filed: 05/23/24 19:33> Medical Decision Making Vital Signs Vital Signs: Vital Signs Temperature 97.6 F 05/23/24 14:43 Pulse Rate 75 05/23/24 14:43 Respiratory Rate 20 05/23/24 14:43 Blood Pressure 118/49 L 05/23/24 14:43 Pulse Oximetry 99 05/23/24 14:43 Temperature 98.1 F 05/23/24 20:01 Pulse Rate 68 05/23/24 20:01 Respiratory Rate 16 05/23/24 20:01 Blood Pressure 115/73 05/23/24 20:01 Pulse Oximetry 100 05/23/24 20:01 <Rachael Marshall PA-C - Last Filed: 05/26/24 17:49> Vital Signs Temperature 97.6 F 05/23/24 14:43 Pulse Rate 75 05/23/24 14:43 Respiratory Rate 20 05/23/24 14:43 Blood Pressure 118/49 L 05/23/24 14:43 Pulse Oximetry 99 05/23/24 14:43 Temperature 98.1 F 05/23/24 20:01 Pulse Rate 68 05/23/24 20:01 Respiratory Rate 16 05/23/24 20:01 Blood Pressure 115/73 05/23/24 20:01 Pulse Oximetry 100 05/23/24 20:01 <Lorenzo Castro MD - Last Filed: 05/23/24 19:33> Imaging Data Radiologist's impression: ITS Impressions Lumbar Spine CT 05/23/24 16:29 IMPRESSION: 1. Mild lumbar spondylosis. No acute osseous abnormality. 2. Partially visualized large pedunculated uterine fibroid. <Lorenzo Castro MD - Last Filed: 05/23/24 19:33> Critical Care Time Critical Care Time Critical Care Time: No <Rachael Marshall PA-C - Last Filed: 05/26/24 17:49> Discharge Plan Discharge Clinical Impression: Sciatica Qualifiers: Laterality: right Qualified Code(s): M54.31 - Sciatica, right side <Rachael Marshall PA-C - Last Filed: 05/26/24 17:49> Patient Disposition: Home <Rachael Marshall PA-C - Last Filed: 05/26/24 17:49> Condition: Stable <Rachael Marshall PA-C - Last Filed: 05/26/24 17:49> Instructions: Sciatica (ED) <Rachael Marshall PA-C - Last Filed: 05/26/24 17:49> Additional Instructions: Please return to the emergency department if you develop severe pain that is not controlled by pain medications or if you are unable to walk because of pain or weakness. Return to the emergency department immediately if you develop fevers, loss of bowel or bladder control (dribbling of urine or having accidents you wouldn't normally have), inability to urinate, numbness of your genital or anal area, or weakness/numbness of your legs or arms as these could all be signs of a serious medical emergency. <Rachael Marshall PA-C - Last Filed: 05/26/24 17:49> Patient Language: Peruvian <Rachael Marshall PA-C - Last Filed: 05/26/24 17:49> Prescriptions: New baclofen 10 mg tablet 10 mg PO TID Qty: 14 0RF No Action clonazepam 1 mg tablet ergocalciferol (vitamin D2) 1,250 mcg (50,000 unit) capsule prednisone 20 mg tablet 40 mg PO DAILY 5 Days Qty: 10 0RF baclofen 10 mg tablet 10 mg PO TID 5 Days Qty: 15 0RF lidocaine 5 % adhesive patch,medicated 1 patch topical DAILY Qty: 15 0RF Rx Instructions: leave on most painful area for up to 12 hrs fluoxetine 40 mg capsule 40 mg PO DAILY atorvastatin 40 mg tablet 40 mg PO DAILY carvedilol 25 mg tablet 25 mg PO BID glipizide 10 mg tablet extended release 24hr 10 mg PO DAILY clopidogrel 75 mg tablet 75 mg PO DAILY chlorthalidone 25 mg tablet 25 mg PO DAILY aspirin 81 mg tablet,delayed release (DR/EC) 81 mg PO DAILY amlodipine 10 mg tablet 10 mg PO DAILY ferrous sulfate [FeroSul] 325 mg (65 mg iron) tablet 325 mg PO DAILY metformin 500 mg tablet extended release 24 hr 500 mg PO BID irbesartan 300 mg tablet 300 mg PO DAILY Tradjenta 5 mg tablet 5 mg PO DAILY <Rachael Marshall PA-C - Last Filed: 05/26/24 17:49> Follow-up/Referrals: Agapito,Salome Maria NP [Primary Care Provider] - 1 Week <Rachael Marshall PA-C - Last Filed: 05/26/24 17:49>
--- OUTSIDE RECORDS SUMMARY | 2024-05-23 16:13 | XMS_ITS | Clinical Summary ---
Author Organization [facility] Address [address] [place] [address] Care Team Providers Care Machine Operator Replanter Name Role Phone Ligia Rodríguez NP Primary Care Provider [phone] Allergies No known active allergies Medications metFORMIN XR (GLUCOPHAGE XR) 500 mg 24 hr tablet Take 1,000 mg by mouth daily 3 05/03/2018 Active clopidogrel (PLAVIX) 75 mg tablet Take 1 tablet (75 mg total) by mouth daily 05/11/2018 Active irbesartan (AVAPRO) 300 mg tablet Take 300 mg by mouth nightly Active chlorthalidone 25 mg tablet Take 25 mg by mouth daily Active atorvastatin (LIPITOR) 40 mg tablet Take 40 mg by mouth daily Active aspirin 81 mg enteric coated tablet Take 81 mg by mouth daily Active FLUoxetine (PROzac) 40 mg capsule Take 40 mg by mouth daily Active gabapentin (NEURONTIN) 300 mg capsule Take 300 mg by mouth 4 (four) times a day Active linaGLIPtin (TRADJENTA) 5 mg tabletIndicatio ns:type 2 diabetes mellitus Take 5 mg by mouth daily Active clonazePAM (KlonoPIN) 1 mg tablet Take 1 mg by mouth 2 (two) times a day as needed for anxiety Active carvediloL (COREG) 25 mg tablet TAKE 1 TABLET BY MOUTH TWICE DAILY WITH MEALS 60 tablet 04/21/2022 Active amLODIPine (NORVASC) 10 mg tablet Take 1 tablet by mouth once daily 90 tablet 09/09/2022 Active Active Problems Problem Noted Date Diagnosed Date Elevated LFTs 04/25/2018 Overview (05/10/2018): Added automatically from request for surgery [id number] Surgical History Surgery Date Site/Laterality Comments TUBAL LIGATION SECTION CHOLECYSTECTOMY Medical History Medical History Date Comments Hypertension Type 2 diabetes mellitus (HCC) Stroke (HCC) Jan 21, 2019 Arthritis Anxiety Depression Family History Medical History Relation Name Comments Stroke Brother Diabetes Father Heart attack Father Hypertension Father Hypertension Mother Relation Name Status Comments Brother Alive Father Alive Mother Alive Social History Tobacco Use Types Packs/Day Years Used Date Smoking Tobacco: Never Smokeless Tobacco: Never Alcohol Use Standard Drinks/Week Comments Yes 0 (1 standard drink = 0.6 oz pur e alcohol) rarely Personal Safety Answer Date Recorded Getting School Help Needed Not on file 01/26 Comments No Sex and Gender Information Value Date Recorded Sex Assigned at Not on file Legal Sex Female 5:51 AM [employer] Gender Identity Not on file Sexual Orientation Not on file Obstetrics History Last Filed Vital Signs Vital Sign Reading Time Taken Comments Blood Pressure 132/80 10/02/2020 10:06 AM CDT Pulse 85 10/02/2020 10:06 AM CDT Temperature 36.5 C (97.7 F) 05/11/2018 1:07 PM CDT Respiratory Rate 18 05/11/2018 1:07 PM CDT Oxygen Saturation 99% 10/02/2020 10:06 AM CDT Inhaled Oxygen Concentration - - Weight 82.6 kg (182 lb 1.6 oz) 10/02/2020 10:06 AM CDT Height 157.5 cm (5' 2 ) 10/02/2020 10:06 AM CDT Body Mass Index 33.31 10/02/2020 10:06 AM CDT Plan of Treatment Not on file Medical Devices Explanted Type Area Lumber Material Handler Device Identifier Shelf Expiration Date Model / Serial / Lot [employer] 6572 Ponce Flexi-Stent 7fr 5cm Small Pigtail Flexible .035in Stent - [id number] Implanted:Qty : 1 on 05/09/2018 by Keagan Courtney MD at [facility] Explanted:Qty : 1 on 05/11/2018 at [facility] Stent N/A: Pancreas [employer] 02/14/2023 [id number] / / [id number] Conmed [employer] [id number] [place] Viabil 10mm 8.5fr 6cm 200cm Fully Covered Self Expand Pull - [id number] - [id number] Implanted:Qty : 1 on 05/09/2018 by Keagan Courtney MD at [facility] Explanted:Qty : 1 on 05/11/2018 at [facility] Stent N/A: Bile Duct Conmed [employer] 03/10/2021 [id number] / [id number] / Insurance MEDICARE [facility] [place] [address] Advance Directives For more information, please contact: [phone] * Full Code (Latest Code Status on File) Date Activated Date Inactivated Comments 05/11/2018 3:03 PM 05/11/2018 7:10 PM Care Teams Machine Operator Replanter Relationship Specialty Start Date End Date Ligia Rodríguez NP [address] [place] [address] PCP - General Nurse Practitioner 04/03/20
--- OUTSIDE RECORDS SUMMARY | 2024-05-23 16:13 | XMS_ITS | Clinical Summary ---
Author Organization [facility] Address [address] [facility] [place] [address] Care Team Providers Care Show Dog Trainer Name Role Phone Radha Jules MD Primary Care Provider [phone] Source Comments [facility],non-owned Affiliates and Associated Physician Practices is amultiple site organization consisting of ambulatory clinics and hospital sitesin [place], [place], [place] and [place]. This disclosure is being madepursuant to the Care Everywhere program and may not contain all information available regarding this patient. Last updated 17.[facility] Allergies No known active allergies Medications * Be aware that medications may not be up to date on this document. Alwaysverify current medications with the patient. Medication Sig Dispensed Refills Start Date End Date Status aspirin EC (ECOTRIN) 81 MG tabletIndications :cardiomegaly Take 81 mg by mouth once daily Reasons: cardiomegaly Active metoprolol succinate XL 24hr (TOPROL XL) 100 MG tabletIndications :Hypertension Take 200 mg by mouth once daily Reasons: High Blood Pressure Disorder Active metFORMIN (GLUCOPHAGE) 500 MG tablet Take 500 mg by mouth 2 times daily with morning and evening meal Patient unsure if she has Type I or Type II Diabetes Active atorvastatin (LIPITOR) 40 MG tablet Take 1 tablet by mouth at bedtime 30 tablet 3 01/25/2018 Active amLODIPine (NORVASC) 10 MG tablet Take 1 tablet by mouth once daily 30 tablet 3 01/26/2018 Active clopidogrel (PLAVIX) 75 MG tablet Take 1 tablet by mouth once daily 30 tablet 01/26/2018 Active Blood Glucose Monitoring Suppl (ONE TOUCH ULTRA 2) W/DEVICE KIT 03/02/2018 Active ONETOUCH ULTRA TEST STRIPS test strip 03/02/2018 Active hydroCHLOROthiazi de (HYDRODIURIL) 25 MG tablet 03/02/2018 Active ONETOUCH DELICA LANCETS 33G MISC 03/02/2018 Active irbesartan (AVAPRO) 300 MG tablet Take 300 mg by mouth once daily Active FLUoxetine (PROZAC) 40 MG capsule Take 40 mg by mouth at bedtime Active gabapentin (NEURONTIN) 300 MG capsule Take one pill in am, one pill in afternoon and 2 pills at night- [phone] 120 capsule 5 03/19/2020 Active Active Problems Problem Noted Date Diagnosed Date Cerebrovascular accident (CVA) 01/21/2018 Family History Medical History Relation Name Comments CAD (Coronary Artery Disease) Father Diabetes - Type 2 Father Hypertension Mother Migraine Sister Seizures Sister Depression Neg Hx Relation Name Status Comments Father Alive Mother Alive Sister Alive Social History Tobacco Use Types Packs/Day Years Used Date Smoking Tobacco: Never Smokeless Tobacco: Never Alcohol Use Standard Drinks/Week Comments Yes 0 (1 standard drink = 0.6 oz pur e alcohol) occasional Sex and Gender Information Value Date Recorded Sex Assigned at Not on file Gender Identity Not on file Sexual Orientation Not on file Last Filed Vital Signs Vital Sign Reading Time Taken Comments Blood Pressure 119/71 03/19/2020 3:39 PM ELECTRONIC HEAT SEAL OPERATOR Pulse 80 03/19/2020 3:39 PM ELECTRONIC HEAT SEAL OPERATOR Temperature 36.2 C (97.1 F) 03/19/2020 3:39 PM ELECTRONIC HEAT SEAL OPERATOR Respiratory Rate 18 01/25/2018 12:01 PM ELECTRONIC HEAT SEAL OPERATOR Oxygen Saturation 97% 01/25/2018 12:01 PM ELECTRONIC HEAT SEAL OPERATOR Inhaled Oxygen Concentration - - Weight 82.6 kg (182 lb) 03/19/2020 3:39 PM ELECTRONIC HEAT SEAL OPERATOR Height 157.5 cm (5' 2 ) 03/19/2020 3:39 PM ELECTRONIC HEAT SEAL OPERATOR Body Mass Index 33.29 03/19/2020 3:39 PM ELECTRONIC HEAT SEAL OPERATOR Plan of Treatment Health Maintenance Due Date Last Done Comments COLOGUARD (AGES 45-75) - COLON CA SCREENING 1970 COLON MONITORING 1970 COLONOSCOPY - COLON CA SCREENING 1970 CT COLONOGRAPHY - COLON CA SCREENING 1970 Colorectal Cancer Screening 1970 FIT - COLON CA SCREENING 1970 FLEX SIG - COLON CA SCREENING 1970 PAP SMEAR 1970 HIV SCREENING 1985 HEPATITIS C SCREENING 12/10/1988 DTAP/TDAP/TD VACCINES (1 - Tdap) 1989 HEPATITIS B VACCINE (1 of 3 - 19+ 3-dose series) 1989 MAMMOGRAM 07/21/2016 07/21/2014 PNEUMOCOCCAL VACCINE 50+ (1 of 1 - PCV) 2020 ZOSTER VACCINE (1 of 2) 2020 SCREENING FOR DIABETES 01/25/2021 8, 01/25/2018, 01/25/2018, Additional history exists COVID-19 VACCINE ( - season) 2023 DEPRESSION SCREENING 02/16/2024 INFLUENZA VACCINE (Season Ended) 2024 12/13/2017 HIB VACCINE Aged Out No longer eligi ble based on patient's age to complete this topic HPV VACCINE Aged Out No longer eligi ble based on patient's age to complete this topic MENINGOCOCCAL (Group B) VACCINE SHARED DECISION-MAKING Aged Out No longer eligible based on patient's age to complete this topic MENINGOCOCCAL GROUPS A/C/Y/W VACCINE Aged Out No longer eligible based on patient's age to complete this topic PNEUMOCOCCAL VACCINE Aged Out No long er eligible based on patient's age to complete this topic Procedures Procedure Name Priority Date/Time Associated Diagnosis Comments GLUCOSE - POINT OF CARE Routine 01/25/2018 2:07 AM ELECTRONIC HEAT SEAL OPERATOR from Last 3 Months or Most Recently Relevant to Health Maintenance Results * GLUCOSE - POINT OF CARE (01/25/2018 2:07 AM ELECTRONIC HEAT SEAL OPERATOR) Glucose WB/POC 113 70 - 115 mg/dL 01/25/2018 2:08 AM ELECTRONIC HEAT SEAL OPERATOR [facility] Specimen Type Arterial/C apillary 01/25/2018 2:08 AM ELECTRONIC HEAT SEAL OPERATOR [facility] Blood BLOOD SPECIMEN / Unknown 01/25/2018 2:07 AM ELECTRONIC HEAT SEAL OPERATOR 01/25/2018 2:08 AM ELECTRONIC HEAT SEAL OPERATOR Narrative [facility] - 01/25/2018 2:08 AM ELECTRONIC HEAT SEAL OPERATOR [employer] School Principal: KYARA ARRIAGA Brandon Quintana MD LAB - POINT OF CARE ORDERABLES [facility] [address] [place] [address], [facility] [phone] from Last 3 Months or Most Recently Relevant to Health Maintenance Advance Directives * Full Code (Latest Code Status on File) Date Activated Date Inactivated Comments 01/21/2018 6:14 PM 01/25/2018 3:51 PM Care Teams Show Dog Trainer Relationship Specialty Start Date End Date Radha Jules MD [address] [place] [id number] PCP - General 03/04/21
--- OUTSIDE RECORDS SUMMARY | 2024-05-23 16:13 | XMS_ITS | Clinical Summary ---
Author Organization [facility] Address [facility] [place] [address] Care Team Providers Care Yard Labor Supervisor Name Role Phone Ligia Rodríguez CNP Primary Care Provider [phone] Boogie Rivera MD Unavailable [phone] Allergies No known active allergies Medications metoprolol succinate 100 MG 24 hr tablet Take 1 tablet (100 mg total) by mouth daily. 90 tablet 3 7 Active Additional Information Patient taking differently: 200 mgOral Daily, Reported on 10/12/2019 metFORMIN 500 MG tablet Take 1,000 mg by mouth daily. 8 Active clopidogrel 75 MG tablet Take 1 tablet by mouth daily. 8 Active atorvastatin 40 MG tablet Take 1 tablet by mouth daily. 9 Active cyclobenzaprine 10 MG tablet Take 10 mg by mouth as needed. 0 9 Active fluoxetine 20 MG capsule Take 40 mg by mouth 2 (two) times daily. 9 Active aspirin 81 MG tablet Take 81 mg by mouth daily. Active AMLODIPINE 10 MG tablet TAKE 1 TABLET BY MOUTH EVERY MORNING 90 tablet 1 0 Active famotidine 20 MG tablet Take 20 mg by mouth 2 (two) times daily. 0 Active cetirizine 10 MG tablet Take 10 mg by mouth daily as needed for Allergies. Active chlorthalidone 25 MG tablet Take 1 tablet (25 mg total) by mouth daily. 90 tablet 1 0 Active irbesartan 300 MG tablet Take 1 tablet (300 mg total) by mouth every morning. 90 tablet 1 Active Active Problems Problem Noted Date Diagnosed Date History of CVA (cerebrovascular accident) 2018 Overview (04/08/2018): 01/21/2018 - Treated at [facility]. Abnormal EKG 04/08/2018 Overview (04/08/2018): LVH with strain on EKG at [facility] 01/2018 when admitted for CVA Pt had Echo at [facility] 01/2018. Normal LV systolic function and no focal WMAs Obesity (BMI 30.0-34.9) 08/03/2016 Hyperglycemia 08/03/2016 Mixed hyperlipidemia 08/03/2016 DANE-inhibitor cough 08/03/2016 Type 2 diabetes mellitus wit hout complication, without long-term current use of insulin ([facility]) 08/03/2016 Overview (08/03/2016): HgA1C 6.5 in 06/2016, overweight and family Hx of diabetes Essential hypertension Family History Medical History Relation Comments Diabetes Father Stroke Father Hypertension Mother Osteoporosis Mother Relation Status Comments Father Mother Social History Tobacco Use Types Packs/Day Years Used Date Smoking Tobacco: Never Smokeless Tobacco: Never Alcohol Use Standard Drinks/Week Comments Yes 0 (1 standard drink = 0.6 oz pur e alcohol) occasional Comments Unknown Sex and Gender Information Value Date Recorded Sex Assigned at Not on file Legal Sex Female 11:29 AM CDT Gender Identity Not on file Sexual Orientation Not on file 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 file Not on file Not on file Last Filed Vital Signs Vital Sign Reading Time Taken Comments Blood Pressure 148/90 10/12/2019 10:56 AM CDT Pulse 76 10/12/2019 10:56 AM CDT Temperature - - Respiratory Rate - - Oxygen Saturation 98% 10/12/2019 10:56 AM CDT Inhaled Oxygen Concentration - - Weight 81.6 kg (180 lb) 10/12/2019 10:56 AM CDT Height 157.5 cm (5' 2 ) 10/12/2019 10:56 AM CDT Body Mass Index 32.92 10/12/2019 10:56 AM CDT Plan of Treatment Health Maintenance Due Date Last Done Comments Cervical Cancer Screening Pa p Smear (Age 30 to 64) Every 3 Years 1970 Colorectal Cancer Screening Colonoscopy (10 Years) 1970 Kidney Health Evaluation 1970 Annual Physical 1973 Pneumococcal Vaccine: Pediatrics (0 to 5 Years) and At-Risk Patients (6 to 64 Years) (1 of 2 - PCV) 1976 Diabetes: Retinopathy Eye Exam 1988 DTaP, Tdap and Td Vaccines ( 1 - Tdap) 1989 Hepatitis B Vaccines (1 of 3 - 19+ 3-dose series) 1989 Cervical Cancer Screening Pa p with HPV Testing (Age 30 to 64) Every 5 Years 2000 Cervical Cancer Screening wi th HPV 2000 Mammogram Screening 2010 Hemoglobin A1C 05/11/2017 11/11/2016, 07/08/2016 Lipid Panel 04/03/2020 04/03/2019, 07/08/2016 Zoster Vaccines (1 of 2) 2020 COVID-19 Vaccine (1 - 2023-2 5 season) 2023 Hepatitis C Completed 03/15/2018 Meningococcal B Vaccine Aged Out No l onger eligible based on patient's age to complete this topic Meningococcal Vaccine Aged Out No anthony pedro eligible based on patient's age to complete this topic RSV Immunizations Under 20 Months Aged Out No longer eligible b ased on patient's age to complete this topic Procedures Procedure Name Priority Date/Time Associated Diagnosis Comments LIPID PANEL Routine 04/03/2019 HEMOGLOBIN, GLYCOSYLATED Routine 11/11/2016 from Last 3 Months or Most Recently Relevant to Health Maintenance Results * LIPID PANEL (04/03/2019) CHOLESTEROL 133.8 HDL 45.4 TRIGLYCERIDES 95 LDL (CALCULATED) 71 04/03/2019 us Doc [facility] Final Result * HEMOGLOBIN, GLYCOSYLATED (11/11/2016) HGB A1C 6.7 11/11/2016 us Doc [facility] Final Result from Last 3 Months or Most Recently Relevant to Health Maintenance Insurance [facility] Care Teams Yard Labor Supervisor Relationship Specialty Start Date End Date Ligia Rodríguez CNP [facility] [place] [address] PCP - General NURSE PRACTITIONER 07/16/16 Boogie Rivera MD 3 [facility] [address] [place] [id number] [place] Frequency Checker CARDIOVASCULAR DISEASE 03/10/19
--- OUTSIDE RECORDS SUMMARY | 2024-05-23 16:13 | XMS_ITS | Encounter Summary ---
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 Not on file Not on file documented as of this encounter Plan of Treatment Not on file documented as of this encounter Procedures Procedure Name Priority Date/Time Associated Diagnosis Comments ESR (OUTSIDE LAB) Routine 11/11/2016 COMPREHENSIVE METABOLIC PANEL Routine 11/11/2016 HEMOGLOBIN, GLYCOSYLATED Routine 11/11/2016 CBC (OUTSIDE LAB) Routine 07/08/2016 COMPREHENSIVE METABOLIC PANEL Routine 07/08/2016 LIPID PANEL Routine 07/08/2016 HEMOGLOBIN, GLYCOSYLATED Routine 07/08/2016 documented in this encounter Results * (ABNORMAL) COMPREHENSIVE METABOLIC PANEL (11/11/2016) Pathologist [facility] [place] [facility] SODIUM S/P/B 139 POTASSIUM S/P/B 3.8 CO2 26.7 CHLORIDE S/P/B 97 GLUCOSE 109 mg/dL CALCIUM S/P/B 9.5 BUN 7 CREATININE S/P/B 0.30(A) 0.5 - 1.0 EGFR AFR. AMER. 310(A) <=90 EGFR NON-AFR. AMER. 256(A) <=90 ALKALINE PHOSPHATASE S/P/B 75 ALT 55 AST 38 BILIRUBIN TOTAL S/P/B 0.3 ALBUMIN S/P/B 4.4 3.5 - 5.0 TOTAL PROTEIN S/P/B 7.4 11/11/2016 us Doc [facility] Final Result * (ABNORMAL) ESR (OUTSIDE LAB) (11/11/2016) Pathologist [facility] SED RATE 25(A) 0 - 20 mm/hr 11/11/2016 us Doc [facility]-OUTSIDE/ABSTRACTED Final Result * HEMOGLOBIN, GLYCOSYLATED (11/11/2016) Pathologist [facility] HGB A1C 6.7 11/11/2016 us Doc [facility] Final Result * CBC (OUTSIDE LAB) (07/08/2016) Pathologist [facility] WBC 7.6 HGB 12.2 HCT 37 PLT 219 07/08/2016 us Doc [facility]-OUTSIDE/ABSTRACTED Final Result * LIPID PANEL (07/08/2016) CHOLESTEROL 190 HDL 57 TRIGLYCERIDES 114 DIRECT LDL 122 07/08/2016 us Doc [facility] Final Result * (ABNORMAL) COMPREHENSIVE METABOLIC PANEL (07/08/2016) SODIUM S/P/B 140 POTASSIUM S/P/B 4.5 CO2 24.7 CHLORIDE S/P/B 99 GLUCOSE 110 CALCIUM S/P/B 9.2 BUN 10 CREATININE S/P/B 0.4(A) 0.5 - 1.0 EGFR AFR. AMER. 223(A) <=90 EGFR NON-AFR. AMER. 184(A) <=90 ALKALINE PHOSPHATASE S/P/B 65 ALT 39 AST 33 BILIRUBIN TOTAL S/P/B 0.3 ALBUMIN S/P/B 4.4 3.5 - 5.0 TOTAL PROTEIN S/P/B 7.3 07/08/2016 us Doc [facility] Final Result * HEMOGLOBIN, GLYCOSYLATED (07/08/2016) Pathologist [facility] HGB A1C 6.5 07/08/2016 us Doc [facility] Final Result documented in this encounter Visit Diagnoses Not on filedocumented in this encounter Care Teams Mold Maker Plaster Relationship Specialty Start Date End Date Ligia Rodríguez CNP [address] [place] [id number] PCP - General NURSE PRACTITIONER 07/16/16 Jag Ibanez MD [address] [place] [address] Mikey B2B Sales Representative CARDIOVASCULAR DISEASE 07/29/16 03/09/19 Boogie Rivera MD 3 [facility] [address] [place] [address] Mikey B2B Sales Representative CARDIOVASCULAR DISEASE 03/10/19 documented as of this encounter
--- OUTSIDE RECORDS SUMMARY | 2024-05-23 16:13 | XMS_ITS | Clinical Summary ---
Author Organization [facility] Address [address], [address] [address] Phone Care Team Providers Care Dental Internship Name Role Phone Ligia Rodríguez APRN Primary Care Provider [phone] Allergies No known active allergies Medications clopidogrel (PLAVIX) 75 MG Tablet TK 1 T PO D 0 02/05/2018 Active metFORMIN (GLUCOPHAGE) 500 MG Tablet TK 1 T PO BID 0 02/05/2018 Active metoprolol Succinate (TOPROL-XL) 100 MG TABLET SR 24 HR TK 1 T PO D 0 02/05/2018 Active hydrOXYzine (ATARAX) 50 MG Tablet TK 1 T PO Q 6 H PRF ITCHING 0 02/05/2018 Active amLODIPine (NORVASC) 10 MG Tablet TK 1 T PO D 0 02/05/2018 Active hydroCHLOROthia zide 25 MG Tablet TK 1 T PO QD 4 03/02/2018 Active candesartan (ATACAND) 8 MG Tablet TK 1 T PO Q MORNING 0 03/08/2018 Active FLUoxetine (PROZAC) 10 MG Capsule TK 1 C PO QD 0 03/08/2018 Active ASPIRIN LOW DOSE 81 MG Tablet Delayed Response TK 1 T PO QD 3 03/02/2018 Active Immunizations Immunization Administration Dates Next Due Influenza Vaccine greater than 3 yrs 12/13/2017 Family History Medical History Relation Name Comments Diabetes Father Hypertension Mother Relation Name Status Comments Father Mother Social History Tobacco Use Types Packs/Day Years Used Date Smoking Tobacco: Never Smokeless Tobacco: Never Alcohol Use Standard Drinks/Week Comments No 0 (1 standard drink = 0.6 oz pure alcohol) before stroke would drink occasionally Comments No Sex and Gender Information Value Date Recorded Sex Assigned at Not on file Legal Sex Female 1:39 PM BOOTH SUPERVISOR Gender Identity Not on file Sexual Orientation Not on file 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 Not on file Not on file Last Filed Vital Signs Vital Sign Reading Time Taken Comments Blood Pressure 118/68 03/15/2018 2:58 PM BOOTH SUPERVISOR Pulse 58 03/15/2018 2:58 PM BOOTH SUPERVISOR Temperature - - Respiratory Rate - - Oxygen Saturation 98% 03/15/2018 2:58 PM BOOTH SUPERVISOR Inhaled Oxygen Concentration - - Weight 74.8 kg (165 lb) 03/15/2018 2:58 PM BOOTH SUPERVISOR Height 157.5 cm (5' 2 ) 03/15/2018 2:58 PM BOOTH SUPERVISOR Body Mass Index 30.18 03/15/2018 2:58 PM BOOTH SUPERVISOR Plan of Treatment Health Maintenance Due Date Last Done Comments Hepatitis B Immunization (1 of 3 - 19+ 3-dose series) 1989 Colonoscopy 12/16/2015 Colorectal Cancer Screening 12/16/2015 Cologuard 2020 Immunochemical Fecal Occult Blood 2020 Pneumococcal Immunization (5 0+ years) (1 of 1 - PCV) 2020 Zoster Immunization (1 of 2) 2020 Influenza Immunization (#1) 10/17/202311/16, 11/11/2016 SARS-COV-2 Immunization ( season) 2023 03/16/2021, 04/23/2020, 03/18/2020 Respiratory Syncytial Virus (RSV) Immunization (Adult) (1 - 1-dose 75+ series) 2045 DTaP/Tdap/Td Immunization Discontinued 03/10/2017 TdaP Immunization Completed 03/10/2017 Hepatitis C Virus (HCV) Screening Completed 03/15/2018 Meningococcal Immunization (ACWY) Aged Out No longer eligible based on patient's age to complete this topic Rotavirus Immunization Aged Out No lo nger eligible based on patient's age to complete this topic Procedures Procedure Name Priority Date/Time Associated Diagnosis Comments HEPATITIS PANEL ACUTE (AHP) Routine 03/15/2018 3:51 PM BOOTH SUPERVISOR Elevated liver enzymes Need for hepatitis C screening test from Last 3 Months or Most Recently Relevant to Health Maintenance Results * HEPATITIS PANEL ACUTE (AHP) (03/15/2018 3:51 PM BOOTH SUPERVISOR) HEPATITIS A IGM ANTIBODY NON DETECTED NON DETECTED 03/16/2018 2:53 PM BOOTH SUPERVISOR [facility] Comment: IGM Antibodies to HAV not detected. Does not exclude early acute or recovered HAV infection. HEP B CORE AB (IGM) NON DETECTED NON DETECTED 03/16/2018 2:53 PM BOOTH SUPERVISOR [facility] Comment: IGM anti-HBC not detected. Does not exclude the possibility of exposure to or infection with HBV. HEPATITIS B SURFACE ANTIGEN NON DETECTED NON DETECTED 03/16/2018 2:53 PM BOOTH SUPERVISOR [facility] Comment: A nonreactive test result does not exclude the possibility of exposure to or infection with Hepatitis B virus. A nonreactive test result in individuals with prior exposure to hepatitis B may be due to antigen levels below the detection limit of this assay or lack of antigen reactivity to the antibodies in this assay. hepatitis C antibody 0.11 <1 S/CO 03/16/2018 2:53 PM BOOTH SUPERVISOR [facility] Comment: Signal/Cutoff ratio < 0.79 is Nondetected Signal/Cutoff ratio 0.80-0.99 is Grayzone Signal/Cutoff ratio > 0.99 is Detected Supplemental assays are recommended if signal/cutoff ratio is >/=1.00. Signal/cutoff ratio result >/= 5.00 is 97% predictive of positivity for recombinant immunoblot assay (RIBA) and will be reported to the [place] Department of Public [facility] as required. Blood specimen (specimen) Venipuncture / Unknown 03/15/2018 3:51 PM BOOTH SUPERVISOR 03/15/2018 4:26 PM BOOTH SUPERVISOR us Charlene Kumar OBIEE LEAD DEVELOPER, BACK SHOE WORKER HEMATOLOGY ORDERA BLES Final Result [facility] [address] [place] [address], [place] from Last 3 Months or Most Recently Relevant to Health Maintenance Care Teams Dental Internship Relationship Specialty Start Date End Date Ligia Rodríguez APRN [address] [place] [address] PCP - General Advanced Practice Nurse 01/03/18
--- OUTSIDE RECORDS SUMMARY | 2024-05-23 16:13 | XMS_ITS | Data Portability ---
Author Organization [facility] Address [address] [place] [address] Care Team Providers Care Cmo & President Name Role Phone ALFA [employer] LILIBETH BENJAMIN [employer] Assessment No assessment recorded. Plan of Treatment Reminders Order Date Submit Date Provider Last Modified By Organization Details Last Modified Time Details Appointments None recorde d. Lab HbA1c (hemogl obin A1c), blood 2020 021 [email or web address] In-Office Order, Internal Use Only DO Not Attach Compendium DO Not Attach Compendium, Do Not Delete/merge, [id number] 12:14:37 glucose , fingers tick, blood 2020 021 [email or web address] In-Office Order, Internal Use Only DO Not Attach Compendium DO Not Attach Compendium, Do Not Delete/merge, [id number] 12:14:37 CBC w/ auto diff 2020 021 [facility], [address] [place] [address], [address], [place], [address], 20:32:26 HbA1c (hemogl obin A1c), blood 2020 021 [facility], [address] [facility], [address], [place], [address], 06:37:19 urinaly sis, complet e 2020 021 [facility], [address], [address], [place], [address], 13:23:07 PT/PTT, plasma 2020 [facility], [address], [address], [place], [address], 11:15:06 CMP, serum or plasma 2020 [facility], [address], [address], [place], [address], 06:37:16 CBC w/ auto diff 2020 [facility], [address] [facility], [address], [place], [address], 06:37:16 TSH, ultra-s ensitiv e, serum 2020 [facility], [address], [address], [place], [address], 11:15:35 albumin /creati nine, mass ratio, urine 2020 [facility], [address] [facility] [address], [address], [place], [address], 11:15:51 lipid panel, serum 2020 [facility], [address], [address], [place], [address], 06:37:15 Referral gastroe nterolo gist referra l - 49 y/o HF needs screeni ng colonos copy 2020 021 corona Marino DO, [address] [facility], [facility] [address], [place], [address], 2 11:29:30 Procedures None recorde d. Surgeries None recorde d. Imaging None recorde d. Medication Orders metform in ER 500 mg 24 hr tablet, extende d release (gastri c retenti on) 2020 021 INTERFACE-139 [id number] [facility] [address], [address] [facility], [place], [address], 2 07:28:00 Tradjen ta 5 mg tablet 2020 [facility] [address], [address] [facility] [address], [place], [address], 11:45:24 atorvas tatin 40 mg tablet 2020 [facility] [address], [address] [facility], [place], [address], 11:45:22 aspirin 81 mg tablet, delayed release 2020 [facility] [address], [address] [facility] [address], [place], [address], 11:45:22 fluoxet ine 40 mg capsule 2020 [facility] [address], [address] [facility] [address], [place], [address], 11:45:18 triamci nolone acetoni de 0.1 % topical ointmen t 2020 [facility] [address], [address] [facility], [place], [address], 11:45:23 irbesar napier 300 mg tablet 2020 [facility] [address], [address], [place], [address], 11:45:20 chlorth alidone 25 mg tablet 2020 021 INTERFACE-139 [id number] [facility] [address], [address], [place], [address], 2 07:28:00 Pepcid 20 mg tablet 2020 [facility] [address], [address], [place], [address], 11:45:17 metform in ER 500 mg 24 hr tablet, extende d release (gastri c retenti on) 2020 INTERFACE-139 [id number] [facility] [address], [address] [facility], [place], [address], 2 07:28:00 Tradjen ta 5 mg tablet 2020 [facility] [address], [address] [facility], [place], [address], 12:14:51 atorvas tatin 40 mg tablet 2020 [facility] [address], [address] [facility], [place], [address], 12:14:49 aspirin 81 mg tablet, delayed release 2020 [facility] [address], [address] [facility], [place], [address], 12:14:52 fluoxet ine 40 mg capsule 2020 [facility] [address], [address] [facility], [place], [address], 12:14:52 metopro lol succina te ER 200 mg tablet, extende d release 24 hr 2020 021 [facility] [address], [address] [facility], [place], [address], 14:59:12 amlodip ine 10 mg tablet 2020 samia [facility] [address], [address] [facility] [address] [facility], [place], [address], 12:14:38 irbesar napier 300 mg tablet 2020 [facility] [address], [address] [facility], [place], [address], 12:14:51 chlorth alidone 25 mg tablet 2020 021 INTERFACE-139 [id number] [place] [address], [address] [facility], [place], [address], 2 07:28:00 Pepcid 20 mg tablet 2020 021 [place] [address], [address] [facility], [place], [address], 12:14:52 clopido grel 75 mg tablet 2020 021 [place] [address], [address] [facility], [place], [address], 12:26:39 metform in ER 500 mg 24 hr tablet, extende d release (gastri c retenti on) 2020 021 INTERFACE-139 [id number] [place] [address], [address] [facility], [place], [address], 2 07:28:00 metopro lol succina te ER 200 mg tablet, extende d release 24 hr 2020 samia [facility] [address], [address] , [place], [address], 14:39:35 amlodip ine 10 mg tablet 2020 INTERFACE [facility] [address], [address] , [place], [address], 12:26:35 irbesar napier 300 mg tablet 2020 INTERFACE [facility] [address], [address] , [place], [address], 12:26:31 chlorth alidone 25 mg tablet 2020 [facility] [id number] [facility] [address], [address] [facility] [address], [place], [address], 07:28:00 Pepcid [address] [facility] [address], [address] [facility] [address], [place], [address], 12:26:37 atorvas tatin [address] [facility] [address], [address] [facility] [address], [place], [address], 12:26:32 aspirin 81 mg tablet, delayed release 2020 INTERFACE [facility] [address], [address] [facility] [address], [place], [address], 12:26:38 fluoxet ine 40 mg capsule 2020 INTERFACE [facility] [address], [address] [facility], [place], [address], 12:26:38 metform in ER 1,000 mg 24 hr tablet, extende d release (gastri c reten.) 2019 [facility] [address], [address] [address], [place], [address], 1 11:24:19 metopro lol succina te ER 100 mg tablet, extende d release 24 hr 2019 [place] [address], [address] [facility] [address], [place], [address], 1 11:26:19 Klonopi n 1 mg tablet 2019 INTERFACE [place] [address], [address] [facility], [place], [address], 0 14:16:07 fluoxet ine 20 mg capsule 2019 [place] [address], [address] [facility] [address], [place], [address], 1 11:32:55 clopido grel 75 mg tablet 2019 INTERFACE [place] [address], [address] [facility], [place], [address], 0 11:13:25 amoxici llin 875 mg tablet 2019 020 [place] [address], [address] [facility], [place], [address], 0 17:43:01 metform in ER 500 mg 24 hr tablet, extende d release (gastri c retenti on) 2019 [facility] [id number] [place] [address], [address] [place], [address], 2 07:28:00 hydroch lorothi azide 25 mg tablet 2019 020 [place] [address], [address], [place], [address], 0 17:43:10 metopro lol succina te ER 200 mg tablet, extende d release 24 hr 2019 [facility] [address], [address], [place], [address], 1 14:39:35 amlodip ine 10 mg tablet 2019 INTERFACE [facility] [address], [address], [place], [address], 0 11:13:27 irbesar napier 300 mg tablet 2019 INTERFACE [facility] [address], [address] [facility], [place], [address], 0 11:13:22 Pepcid 20 mg tablet 2019 INTERFACE [facility] [address], [address] [facility] [address], [place], [address], 0 11:00:32 atorvas tatin [address] [facility] [address], [address] [facility] [address], [place], [address], 0 11:00:31 aspirin 81 mg tablet, delayed release 2019 INTERFACE [facility] [address], [address] , [place], [address], 0 11:00:34 fluoxet ine 40 mg capsule 2019 INTERFACE [facility] [address], [address] , [place], [address], 0 11:00:29 Patient TargetsNo targets recorded. Patient Instructions Encounter Date Encounter Id Patient Instructions Last Modified By Organization Details Last Modified Time 10/02/2019 [id number] influenza vaccin e in the fall yamp Not available 10/02/2019 11:13:10 Uncontrolled Hypertension potential risks, heart attack, , stroke, kidney failure etc. Hypertension is the silent Killer Take your Hypertension medication daily keep appointments stop concentrated sugars--follow 1500 meal plan exercise 50-60 minutes daily on most days see eye doctor once a year see dentist every 6 months Uncontrolled Diabetes Mellitus complications , blindness, kidney failure, amputations etc. Take your diabetes medication daily check blood sugars fasting and post prandial --keep a log--bring to next appointment stop concentrated sugars--follow 1500 meal plan exercise 50-60 minutes daily on most days check your feet for sores, cuts, etc., see eye doctor once a year see dentist every 6 months spent 20 minutes on the telephone with the patient Benefits risks of psychotropic medications if you develop suicidal thoughts or behaviors seek immediate reevaluation avoid alcohol when taking psychotropic medications if you develop fevers, chills, diarrhea, muscle symptoms or seizures to seek immediate reevaluation take your medicine as directed Pt. advised to call 911 or go to a local Emergency Department with any SI or HI, thoughts of self harm or any psychiatric emergency. Pt. is deemed safe and appropriate for continued out patient treatment. Pt. advised of the risk benefit ratio of medication, possible side effects and interactions of the meditations. Pt. wishes to continue with the treatment plan. Pt. advised to call or come in sooner than the scheduled appt. if there are any worsening of symptoms or problems with the medication yarauz Not available 10/02/2019 10:56:05 04/11/2020 [id number] pap due schedule for well woman mammogram 01/2020 normal yarauz Not available 04/11/2020 12:17:22 Uncontrolled Hypertension potential risks, heart attack, , stroke, kidney failure etc. Hypertension is the silent Killer Take your Hypertension medication daily keep appointments stop concentrated sugars--follow 1500 meal plan exercise 50-60 minutes daily on most days see eye doctor once a year see dentist every 6 months Uncontrolled Diabetes Mellitus complications , blindness, kidney failure, amputations etc. Take your diabetes medication daily check blood sugars fasting and post prandial --keep a log--bring to next appointment stop concentrated sugars--follow 1500 meal plan exercise 50-60 minutes daily on most days check your feet for sores, cuts, etc., see eye doctor once a year see dentist every 6 months spent 20 minutes on the telephone with the patient Benefits risks of psychotropic medications if you develop suicidal thoughts or behaviors seek immediate reevaluation avoid alcohol when taking psychotropic medications if you develop fevers, chills, diarrhea, muscle symptoms or seizures to seek immediate reevaluation take your medicine as directed Pt. advised to call 911 or go to a local Emergency Department with any SI or HI, thoughts of self harm or any psychiatric emergency. Pt. is deemed safe and appropriate for continued out patient treatment. Pt. advised of the risk benefit ratio of medication, possible side effects and interactions of the meditations. Pt. wishes to continue with the treatment plan. Pt. advised to call or come in sooner than the scheduled appt. if there are any worsening of symptoms or problems with the medication yarauz Not available 04/11/2020 12:17:47 07/09/2020 [id number] learning about type 2 diabetes yarauz Not available 07/09/2020 12:14:38 type 2 diabetes: care instructions yarauz Not available 07/09/2020 12:14:38 high cholesterol : care instructions yarauz Not available 07/09/2020 12:14:38 anemia: care instructions yarauz Not available 07/09/2020 12:14:38 Uncontrolled Hypertension potential risks, heart attack, , stroke, kidney failure etc. Hypertension is the silent Killer Take your Hypertension medication daily keep appointments stop concentrated sugars--follow 1500 meal plan exercise 50-60 minutes daily on most days see eye doctor once a year see dentist every 6 months Uncontrolled Diabetes Mellitus complications , blindness, kidney failure, amputations etc. Take your diabetes medication daily check blood sugars fasting and post prandial --keep a log--bring to next appointment stop concentrated sugars--follow 1500 meal plan exercise 50-60 minutes daily on most days check your feet for sores, cuts, etc., see eye doctor once a year see dentist every 6 months spent 20 minutes on the telephone with the patient Benefits risks of psychotropic medications if you develop suicidal thoughts or behaviors seek immediate reevaluation avoid alcohol when taking psychotropic medications if you develop fevers, chills, diarrhea, muscle symptoms or seizures to seek immediate reevaluation take your medicine as directed Pt. advised to call 911 or go to a local Emergency Department with any SI or HI, thoughts of self harm or any psychiatric emergency. Pt. is deemed safe and appropriate for continued out patient treatment. Pt. advised of the risk benefit ratio of medication, possible side effects and interactions of the meditations. Pt. wishes to continue with the treatment plan. Pt. advised to call or come in sooner than the scheduled appt. if there are any worsening of symptoms or problems with the medication yarauz Not available 07/09/2020 12:12:11 10/08/2020 [id number] Uncontrolled Hypertension potential risks, heart attack, , stroke, kidney failure etc. Hypertension is the silent Killer Take your Hypertension medication daily keep appointments stop concentrated sugars--follow 1500 meal plan exercise 50-60 minutes daily on most days see eye doctor once a year see dentist every 6 months Uncontrolled Diabetes Mellitus complications , blindness, kidney failure, amputations etc. Take your diabetes medication daily check blood sugars fasting and post prandial --keep a log--bring to next appointment stop concentrated sugars--follow 1500 meal plan exercise 50-60 minutes daily on most days check your feet for sores, cuts, etc., see eye doctor once a year see dentist every 6 months spent 20 minutes on the telephone with the patient Benefits risks of psychotropic medications if you develop suicidal thoughts or behaviors seek immediate reevaluation avoid alcohol when taking psychotropic medications if you develop fevers, chills, diarrhea, muscle symptoms or seizures to seek immediate reevaluation take your medicine as directed Pt. advised to call 911 or go to a local Emergency Department with any SI or HI, thoughts of self harm or any psychiatric emergency. Pt. is deemed safe and appropriate for continued out patient treatment. Pt. advised of the risk benefit ratio of medication, possible side effects and interactions of the meditations. Pt. wishes to continue with the treatment plan. Pt. advised to call or come in sooner than the scheduled appt. if there are any worsening of symptoms or problems with the medication yarauz Not available 10/08/2020 11:32:24 Reason for Referral Shook Splicer Referral for Screening for malignant neoplasm of colon Screening for malignant neoplasm of colon 49 y/o HF needs screening colonoscopy Referring Physician: Ligia Rodríguez, Family Medicine, Encounter Date: 10/08/2020 Results Created Date Observation Date Name Description Value Unit Range Abnormal Flag Note LastModifiedBy Organization Detail LastModifiedTime 04/20/19 21 04/20/2020 lipid panel , serum cholesterol, total 120 mg/dL <200 normal Not Available [place] [address] [place], [address], 04/20/2020 06:37:15 04/20/19 21 04/20/2020 lipid panel , serum HDL cholesterol 38 mg/dL > or = 50 low Not Available [place] [address] [place], [address], 04/20/2020 06:37:15 04/20/19 21 04/20/2020 lipid panel , serum triglyceride s 142 mg/dL <150 normal Not Available [facility] [address], [address], 04/20/2020 06:37:15 04/20/1904/20/2020 lipid panel , serum LDL-choleste rol 59 mg/dL _(letty c) normal Refer ence range : <100 Pio able range <100 mg/dL for prima ry preve ntion ; <70 mg/dL for patie nts with CHD or diabe tic patie nts with > or = 2 CHD risk facto rs. LDL-C is now calcu lated using the Sumaya n-Hop kins calcu jane n, which is a valid ated novel elvis yee accur acy than the Fried flaca equat ion in the estim ation of LDL-C . Sumaya DO et al. LUCA. 2013; 310(1 9): 2061- 2068 (http ://ed ucati on.Qu estLety Funderas. com/f aq/FA Q164) Not Available [facility] [address], [address], 04/20/2020 06:37:15 04/20/19 21 04/20/2020 lipid panel , serum chol/HDLC ratio 3.2 (calc ) <5.0 normal Not Available [employer] [address] [place], [address], 04/20/2020 06:37:15 04/20/1904/20/2020 lipid panel , serum non HDL cholesterol 82 mg/dL _(letty c) <130 normal For patie nts with diabe kian plus 1 major ASCVD risk facto r, treat ing to a non-H DL-C goal of <100 mg/dL (LDL- C of <70 mg/dL ) is consi dered a thera peuti c optio n. Not Available [facility] [address], [address], 04/20/2020 06:37:15 04/20/1904/20/2020 CMP, serum or plasm a glucose 161 mg/dL 65-99 high Fasti ng refer ence inter britney For someo ne witho ut known diabe kian, a gluco se value >125 mg/dL indic ates that they may have diabe kian and this shoul d be confi rmed with a follo w-up test. Not Available [facility] [address], [address], 04/20/2020 06:37:16 04/20/1904/20/2020 CMP, serum or plasm a urea nitrogen (BUN) 16 mg/dL 7-25 normal Not Available [facility] [address], [address], 04/20/2020 06:37:16 04/20/1904/20/2020 CMP, serum or plasm a creatinine 0.80 mg/dL 0.50-1 .10 normal Not Available [facility] [address], [address], 04/20/2020 06:37:16 04/20/1904/20/2020 CMP, serum or plasm a eGFR non-afr. afghan 87 mL/mi n/1.7 3m2 > or = 60 normal Not Available [facility] [address], [address], 04/20/2020 06:37:16 04/20/19 21 04/20/2020 CMP, serum or plasm a eGFR 100 mL/mi n/1.7 3m2 > or = 60 normal Not Available [address], [address], 04/20/2020 06:37:16 04/20/19 21 04/20/2020 CMP, serum or plasm a BUN/creatini ne ratio NOT APPLIC ABLE (calc ) 6-22 Not Available [address], [address], 04/20/2020 06:37:16 04/20/19 21 04/20/2020 CMP, serum or plasm a sodium 138 mmol/ L 135-14 6 normal Not Available [address], [address], 04/20/2020 06:37:16 04/20/19 21 04/20/2020 CMP, serum or plasm a potassium 3.7 mmol/ L 3.5-5. 3 normal Not Available [address], [address], 04/20/2020 06:37:16 04/20/1904/20/2020 CMP, serum or plasm a chloride 102 mmol/ L 98-110 normal Not Available [address], [address], 04/20/2020 06:37:16 04/20/19 21 04/20/2020 CMP, serum or plasm a carbon dioxide 27 mmol/ L 20-32 normal Not Available [address], [address], 04/20/2020 06:37:16 04/20/19 21 04/20/2020 CMP, serum or plasm a calcium 9.5 mg/dL 8.6-10 .2 normal Not Available [address], [address], 04/20/2020 06:37:16 04/20/1904/20/2020 CMP, serum or plasm a protein, total 6.5 g/dL 6.1-8. 1 normal Not Available [address], [address], 04/20/2020 06:37:16 04/20/1904/20/2020 CMP, serum or plasm a albumin 4.2 g/dL 3.6-5. 1 normal Not Available [address], [address], 04/20/2020 06:37:16 04/20/1904/20/2020 CMP, serum or plasm a globulin 2.3 g/dL_ (calc ) 1.9-3. 7 normal Not Available [address], [address], 04/20/2020 06:37:16 04/20/1904/20/2020 CMP, serum or plasm a albumin/glob ulin ratio 1.8 (calc ) 1.0-2. 5 normal Not Available [address], [address], 04/20/2020 06:37:16 04/20/1904/20/2020 CMP, serum or plasm a bilirubin, total 0.4 mg/dL 0.2-1. 2 normal Not Available [address], [address], 04/20/2020 06:37:16 04/20/1904/20/2020 CMP, serum or plasm a alkaline phosphatase 65 U/L 31-125 normal Not Available [facility] [employer] [address], [address], 04/20/2020 06:37:16 04/20/1904/20/2020 CMP, serum or plasm a AST 17 U/L 10-35 normal Not Available [address], [address], 04/20/2020 06:37:16 04/20/19 21 04/20/2020 CMP, serum or plasm a ALT 20 U/L 6-29 normal Not Available [address], [address], 04/20/2020 06:37:16 04/20/19 21 04/20/2020 CBC w/ auto diff white blood cell count 8.1 thous and/u L 3.8-10 .8 normal Not Available [address], [address], 04/20/2020 06:37:16 04/20/19 21 04/20/2020 CBC w/ auto diff red blood cell count 3.48 brooklynn on/uL 3.80-5 .10 low Not Available [address], [address], 04/20/2020 06:37:16 04/20/19 21 04/20/2020 CBC w/ auto diff hemoglobin 9.6 g/dL 11.7-1 5.5 low Not Available [address], [address], 04/20/2020 06:37:16 04/20/1904/20/2020 CBC w/ auto diff hematocrit 29.5 % 35.0-4 5.0 low Not Available [facility] [address], [address], 04/20/2020 06:37:16 04/20/1904/20/2020 CBC w/ auto diff MCV 84.8 fL 80.0-1 00.0 normal Not Available [address], [address], 04/20/2020 06:37:16 04/20/19 21 04/20/2020 CBC w/ auto diff MCH 27.6 pg 27.0-3 3.0 normal Not Available [address], [address], 04/20/2020 06:37:16 04/20/19 21 04/20/2020 CBC w/ auto diff MCHC 32.5 g/dL 32.0-3 6.0 normal Not Available [address], [address], 04/20/2020 06:37:16 04/20/19 21 04/20/2020 CBC w/ auto diff RDW 12.0 % 11.0-1 5.0 normal Not Available [address], [address], 04/20/2020 06:37:16 04/20/19 21 04/20/2020 CBC w/ auto diff platelet count 254 thous and/u L 140-40 0 normal Not Available [address], [address], 04/20/2020 06:37:16 04/20/19 21 04/20/2020 CBC w/ auto diff MPV 13.1 fL 7.5-12 .5 high Not Available [address], [address], 04/20/2020 06:37:16 04/20/19 21 04/20/2020 CBC w/ auto diff absolute neutrophils 5581 cells /uL 1500-7 800 normal Not Available [address], [address], 04/20/2020 06:37:16 04/20/19 21 04/20/2020 CBC w/ auto diff absolute lymphocytes 1693 cells /uL 850-39 00 normal Not Available [address], [address], 04/20/2020 06:37:16 04/20/19 21 04/20/2020 CBC w/ auto diff absolute monocytes 656 cells /uL 200-95 0 normal Not Available [place] [address] [place], [address], 04/20/2020 06:37:16 04/20/19 21 04/20/2020 CBC w/ auto diff absolute eosinophils 130 cells /uL 15-500 normal Not Available [place] [address] [place], [address], 04/20/2020 06:37:16 04/20/19 21 04/20/2020 CBC w/ auto diff absolute basophils 41 cells /uL 0-200 normal Not Available [address], [address], 04/20/2020 06:37:16 04/20/19 21 04/20/2020 CBC w/ auto diff neutrophils 68.9 % normal Not Available [facility] [address] [place], [address], 04/20/2020 06:37:16 04/20/19 21 04/20/2020 CBC w/ auto diff lymphocytes 20.9 % normal Not Available [address] [place], [address], 04/20/2020 06:37:16 04/20/19 21 04/20/2020 CBC w/ auto diff monocytes 8.1 % normal Not Available [facility] [place] [address] [place], [address], 04/20/2020 06:37:16 04/20/19 21 04/20/2020 CBC w/ auto diff eosinophils 1.6 % normal Not Available [facility] [place] [address] [place], [address], 04/20/2020 06:37:16 04/20/19 21 04/20/2020 CBC w/ auto diff basophils 0.5 % normal Not Available [facility] [place] [address] [place], [address], 04/20/2020 06:37:16 04/20/19 21 04/20/2020 PT/PT T, plasm a partial thromboplast in time, activated 22 sec 23-32 low This test has not been valid ated for monit oring unfra ction ated hepar in thera py. For testi ng that is valid ated for this type of thera py, [place] e refer to the Hepar in Anti- Xa assay (test code 74260 ). For addit ional gailr america stallworth refer to http: //Dobango aníbal Bowling stDia gnost ics.c om/fa q/FAQ 159 (This link is being provi ded for infor matio nal/e ducat ional purpo ses only. ) Not Available [facility], [address], 04/20/2020 06:37:17 04/20/19 21 04/20/2020 PT/IN R INR 1.0 normal Refer ence Range 0.9-1 .1 Moder ate-i ntens ity Warfa rin Thera py 2.0-3 .0 Highe r-int ensit y Warfa rin Thera py 3.0-4 .0 Not Available [facility] [address] [place], [address], 04/20/2020 06:37:18 04/20/19 21 04/20/2020 PT/IN R PT 10.1 sec 9.0-11 .5 normal For addit ional infor america stallworth e refer to http: //monty bowling stdia gnost ics.c om/fa q/FAQ 104 (This link is being provi ded for infor matio nal/ educa orin l purpo ses only. ) Not Available [facility] [address] [place], [address], 04/20/2020 06:37:18 04/20/19 21 04/20/2020 TSH, ultra -sens itive , serum TSH w/reflex to FT4 2.07 mIU/L normal Refer ence Range > or = 20 Years 0.40- 4.50 Pregn tomasa Range s First trime ster 0.26- 2.66 Secon d trime ster 0.55- 2.73 Third trime ster 0.43- 2.91 Not Available [facility] [address] [facility] [address], [place], [address], 04/20/2020 06:37:18 04/20/19 21 04/20/2020 HbA1c (hemo globi n A1c), blood hemoglobin A1C 7.1 %_of_ total _HGB <5.7 high For someo ne witho ut known diabe kian, a hemog lobin A1c value of 6.5% or great er indic ates that they may have diabe kian and this shoul d be confi rmed with a follo w-up test. For someo ne with known diabe kian, a value <7% indic ates that their diabe kian is well contr olled and a value great er than or equal to 7% indic ates subop timal contr ol. A1c targe ts shoul d be indiv idual ized based on durat ion of diabe kian, age, comor bid condi tions , and other consi derat ions. Curre ntly, no conse nsus exist s helio astorga use of hemog lobin A1c for diagn osis of diabe kian for child rocky. Not Available [facility] [address], [place], [address], 04/20/2020 06:37:18 04/23/19 21 04/23/2020 album in/cr eatin ine, mass ratio , urine creatinine, random urine 150 mg/dL 20-275 normal Not Available [facility] [address] [facility] [address], [place], [address], 04/23/2020 13:23:06 04/23/19 21 04/23/2020 album in/cr eatin ine, mass ratio , urine albumin, urine 1.1 mg/dL see note: normal Refer ence Range : Refer ence Range Not estab lishe d Not Available [facility] [address] [facility] [address], [place], [address], 04/23/2020 13:23:06 04/23/19 21 04/23/2020 album in/cr eatin ine, mass ratio , urine albumin/crea tinine ratio, random urine 7 mcg/m g_cre at <30 normal The ADA defin es abnor malit ies in album in excre tion as follo ws: Categ ory Resul t (mcg/ mg creat inine ) Jacquie l <30 Micro album inuri a 30-29 9 Clini letty album inuri a > OR = 300 The ADA recom mends that at least two of three speci mens colle cted withi n a 3-6 month perio d be abnor mal befor e consi abhishek g a patie nt to be withi n a diagn ostic categ ory. Not Available [facility] [address] [facility] [address], [place], [address], 04/23/2020 13:23:06 04/23/19 21 04/23/2020 urina lysis , compl ete color YELLOW yellow normal Not Available [facility] [address], [address], 04/23/2020 13:23:07 04/23/19 21 04/23/2020 urina lysis , compl ete appearance CLOUDY clear abnormal Not Available [facility] [address], [address], 04/23/2020 13:23:07 04/23/19 21 04/23/2020 urina lysis , compl ete specific gravity 1.022 1.001- 1.035 normal Not Available [facility] [address], [address], 04/23/2020 13:23:07 04/23/19 21 04/23/2020 urina lysis , compl ete pH 5.5 5.0-8. 0 normal Not Available [address], [address], 04/23/2020 13:23:07 04/23/19 21 04/23/2020 urina lysis , compl ete glucose NEGATI VE negati ve normal Not Available [address], [address], 04/23/2020 13:23:07 04/23/19 21 04/23/2020 urina lysis , compl ete bilirubin NEGATI VE negati ve normal Not Available [facility] [address], [address], 04/23/2020 13:23:07 04/23/19 21 04/23/2020 urina lysis , compl ete ketones NEGATI VE negati ve normal Not Available [facility] [address], [address], 04/23/2020 13:23:07 04/23/19 21 04/23/2020 urina lysis , compl ete occult blood NEGATI VE negati ve normal Not Available [address], [address], 04/23/2020 13:23:07 04/23/19 21 04/23/2020 urina lysis , compl ete protein NEGATI VE negati ve normal Not Available [facility] [address], [address], 04/23/2020 13:23:07 04/23/19 21 04/23/2020 urina lysis , compl ete nitrite NEGATI VE negati ve normal Not Available [address], [address], 04/23/2020 13:23:07 04/23/19 21 04/23/2020 urina lysis , compl ete leukocyte esterase NEGATI VE negati ve normal Not Available [address], [address], 04/23/2020 13:23:07 04/23/19 21 04/23/2020 urina lysis , compl ete WBC 0-5 /hpf < or = 5 normal Not Available [address], [address], 04/23/2020 13:23:07 04/23/19 21 04/23/2020 urina lysis , compl ete RBC NONE SEEN /hpf < or = 2 normal Not Available [address], [address], 04/23/2020 13:23:07 04/23/19 21 04/23/2020 urina lysis , compl ete squamous epithelial cells 6-10 /hpf < or = 5 abnormal Not Available [address], [address], 04/23/2020 13:23:07 04/23/19 21 04/23/2020 urina lysis , compl ete bacteria FEW /hpf none seen abnormal Not Available [address], [address], 04/23/2020 13:23:07 04/23/19 21 04/23/2020 urina lysis , compl ete hyaline cast NONE SEEN /lpf none seen normal Not Available [address], [address], 04/23/2020 13:23:07 07/10/19 21 07/09/2020 CBC w/ auto diff WBC 8.2 K/uL 3.4-10 .8 Not Available [facility] (Lab) [address] [place], [address], 07/09/2020 20:32:25 07/10/19 21 07/09/2020 CBC w/ auto diff red blood count 3.9 M/uL 4.2-5. 4 low Not Available [facility] (Lab) [address] [facility], [place], [address], 07/09/2020 20:32:25 07/10/19 21 07/09/2020 CBC w/ auto diff hemoglobin 10.3 g/dL 11.5-1 5.5 low Not Available [facility] (Lab) [address] [facility], [place], [address], 07/09/2020 20:32:25 07/10/19 21 07/09/2020 CBC w/ auto diff hematocrit 32.6 % 36.0-4 8.0 low Not Available [facility] (Lab) [address] [facility], [place], [address], 07/09/2020 20:32:25 07/10/19 21 07/09/2020 CBC w/ auto diff MCV 83 fL 80-95 Not Available [facility] (Lab) [address] [place], [address], 07/09/2020 20:32:25 07/10/19 21 07/09/2020 CBC w/ auto diff MCH 26 pg 27-32 low Not Available [facility] (Lab) [address] [place], [address], 07/09/2020 20:32:25 07/10/19 21 07/09/2020 CBC w/ auto diff MCHC 32 g/dL 32-36 Not Available [facility] (Lab) [address] [place], [address], 07/09/2020 20:32:25 07/10/19 21 07/09/2020 CBC w/ auto diff platelets 270 K/uL 155-37 9 Not Available [facility] (Lab) [address] [place], [address], 07/09/2020 20:32:25 07/10/19 21 07/09/2020 CBC w/ auto diff RDW 14.0 % 11.5-1 4.5 Not Available [facility] (Lab) [address] [place], [address], 07/09/2020 20:32:25 07/10/19 21 07/09/2020 CBC w/ auto diff MPV 13.1 fL 8.9-12 .7 high Not Available [facility] (Lab) [address] [facility], [place], [address], 07/09/2020 20:32:25 07/10/19 21 07/09/2020 CBC w/ auto diff neutrophils absolute 6.2 K/uL 1.4-7. 0 Not Available [facility] (Lab) [address] [facility], [place], [address], 07/09/2020 20:32:25 07/10/19 21 07/09/2020 CBC w/ auto diff lymphs (absolute) 1.4 K/uL 0.7-3. 1 Not Available [facility] (Lab) [address] [place], [address], 07/09/2020 20:32:25 07/10/19 21 07/09/2020 CBC w/ auto diff monocytes (absolute) 0.5 K/uL 0.1-0. 9 Not Available [facility] (Lab) [address] [place], [address], 07/09/2020 20:32:25 07/10/19 21 07/09/2020 CBC w/ auto diff eos (absolute) 0.1 K/uL 0.0-0. 4 Not Available [facility] (Lab) [address] [place], [address], 07/09/2020 20:32:25 07/10/19 21 07/09/2020 CBC w/ auto diff baso (absolute) 0.0 K/uL 0.0-0. 3 Not Available [facility] (Lab) [address] [facility] [place] [place], [address], 07/09/2020 20:32:25 07/10/19 21 07/09/2020 CBC w/ auto diff neut % 75.8 % 40.0-7 4.0 high Not Available [facility] (Lab) [address] [facility], [place], [address], 07/09/2020 20:32:25 07/10/19 21 07/09/2020 CBC w/ auto diff lymphs % 16.4 % 14.0-4 6.0 Not Available [facility] (Lab) [address] [place], [address], 07/09/2020 20:32:25 07/10/19 21 07/09/2020 CBC w/ auto diff mono % 5.7 % 4.0-12 .0 Not Available [facility] (Lab) [address] [facility], [place], [address], 07/09/2020 20:32:25 07/10/19 21 07/09/2020 CBC w/ auto diff eos % 2 % 0-5 Not Available [facility] (Lab) [address] [facility], [place], [address], 07/09/2020 20:32:25 07/10/19 21 07/09/2020 CBC w/ auto diff baso % 0.2 % 0.0-1. 0 Not Available [facility] (Lab) [address] [facility], [place], [address], 07/09/2020 20:32:25 07/10/19 21 07/09/2020 HbA1c (hemo globi n A1c), blood HbA1c 8.3 Not Available In-Office Order Internal Use Only DO Not Attach Compendium DO Not Attach Compendium, Do Not Delete/merge, [id number] 07/09/2020 11:20:11 07/10/19 21 07/09/2020 gluco se, finge rstic k, blood Blood Glucose: mg/dl 203 Not Available In-Off ice Order Internal Use Only DO Not Attach Compendium DO Not Attach Compendium, Do Not Delete/merge, [id number] 07/09/2020 11:20:13 01/31/20 20 01/22/2020 MAMMO , ginnye emanuel, bilat shannanl No observ ation record edCyndi gracia Not Available 2020 12:11:04 Result Notes None recorded. Problems Name Problem SNOMED Code Status Onset Date Resolution Date Notes Provider Name and Address Organization Details Recorded Time Type 2 diabetes mellitus 50376430 Active 2017 Not Available [facility] 2 07:28:01 Obesity 996574064 Active 2017 Not Available [facility] 2 07:28:01 Liver function tests outside reference range 781030793 Completed 201707/09/2020 Tamie Bey RN null, [place] [facility] 1 11:18:50 Cerebrova scular accident 943922240 Completed 201707/09/2020 Tamie Be[place] [facility] [place] 11:19:05 History of cerebrova scular accident 879448884 Active 2018 Not Available [facility] 2 07:28:01 Right hemipares is 912933733 Completed 201807/09/2020 Tamie Bey RN [place], [place] [facility] 1 11:18:43 Body mass index 30+ - obesity 430187956 Active 2019 Not Available [facility] 2 07:28:01 History of hemorrhag ic stroke with residual hemipares is 47614468705 4101 Active 2019 Not Available [facility] 2 07:28:01 Obstructi ve sleep apnea of adult 89183258233 03 Active 2020 Not Available [facility] 2 07:28:01 History of SARS-CoV- 2 26503752107 1206173 Active 2019 Not Available [facility] 2 07:28:01 Essential hypertens ion 18832929 Active 2016 Not Available [facility] 2 07:28:01 Left ventricul ar hypertrop 66041532 Active 2016 Not Available [facility] 2 07:28:01 Hyperlipi alexia 12385697 Active 2016 Not Available [facility] 2 07:28:01 Problem Notes None recorded. Procedures Surgical History Date Name Laterality Status Provider Name and Address Organization Details Recorded Time 04/24/19 21 Date of Last Pap Smear completed Tamie Bey RN [facility] 07/09/2020 11:32:08 01/22/20 20 Date of Last Mammogram completed Tamie Bey RN [facility] 07/09/2020 11:33:32 09/09/19 18 Skin Tag Removal completed GRIS Nielsen Attn: Accounting, [address] [place], [address], [facility] 09/08/2017 13:09:02 05/17/19 00 Cholecystectomy completed Tamie Bey RN [facility] 01/02/2016 16:24:12 01/25/19 98 Caesarean Section completed Tamie Bey RN [facility] 01/02/2016 16:23:54 Imaging Results Imaging Date Name Status [facility]Modified [facility] Details LastModified Time 01/22/2020 MAMMO, screening, bilateral completed samia Information not available 04/11/2020 12:11:04 Procedure Notes None recorded. Medical Equipment None Reported. Allergies No known drug allergies Medications Name Sig Start Date Stop Date Status Note LastModified by Organization Details LastModified Time fluoxetin e 40 mg capsule TAKE 1 CAPSULE BY MOUTH TWICE DAILY active Not Available Not Available No t Available cyclobenz aprine 10 mg tablet TAKE 1 TABLET BY MOUTH EVERY DAY 10/01 completed Not Available Not Available Not Available atorvasta tin 40 mg tablet Take 1 tablet by mouth once daily active Not Available Not Available No t Available metformin 500 mg tablet TAKE 1 TABLET BY MOUTH TWICE DAILY WITH MEALS active Not Available Not Available No t Available carvedilo l 25 mg tablet TAKE 1 TABLET BY MOUTH TWICE DAILY WITH MEALS active Not Available Not Available No t Available clonidine HCl 0.1 mg tablet Take 1 tablet every day by oral route. 07/08 completed Not Available Not Available Not Available clindamyc in HCl 300 mg capsule TAKE 1 CAPSULE BY MOUTH THREE TIMES DAILY. STOP IF DIARRHEA OCCURS active Not Available Not Available No t Available azithromy magaly 250 mg tablet TAKE 2 TABLETS (500 MG) BY ORAL ROUTE ONCE DAILY FOR 1 DAY THEN 1 TABLET (250 MG) BY ORAL ROUTE ONCE DAILY FOR 4 DAYS 07/07 completed Not Available Not Available Not Available fluconazo le 150 mg tablet TAKE 1 TABLET BY MOUTH WEEKLY DIRECTED active Not Available Not Available No t Available atenolol 100 mg tablet TAKE 1 TABLET BY MOUTH EVERY DAY 12/23 completed Not Available Not Available Not Available meloxicam 15 mg tablet TAKE 1 TABLET BY MOUTH EVERY DAY 03/10 completed Not Available Not Available Not Available metoprolo l succinate ER 200 mg tablet,ex tended release 24 hr Take 1 tablet every day by oral route. 10/07 completed #90 w/ 1rfs Not Available Not Available Not Available prednison e 20 mg tablet TAKE 3 TABLETS BY MOUTH DAILY NEEDED FOR ITCHING active Not Available Not Available No t Available metoprolo l succinate ER 100 mg tablet,ex tended release 24 hr TAKE 2 TABLETS BY MOUTH ONCE DAILY 04/11 completed Not Available Not Available Not Available clonazepa m 1 mg tablet TAKE 1 TABLET BY MOUTH TWICE DAILY active Not Available Not Available No t Available permethri n 5 % topical cream APPLY (THOROUG HLY MASSAGE INTO SKIN FROM HEAD TO SOLES OF FEET) BY TOPICAL ROUTE ONCE LEAVE ON FOR 8-14 HR, THEN REMOVE BY THOROUGH WASHING 07/08 completed Not Available Not Available Not Available valsartan 80 mg tablet Take 1 tablet every day by oral route. 03/10 completed Not Available Not Available Not Available [facility] Atenolol 100 mg tablet active Not Available Not Available Not Available hydroxyzi ne HCl 50 mg tablet Take 50 mg every 6 hours by oral route. 09/29 completed Not Available Not Available Not Available melatonin 3 mg tablet Take 6 mg by oral route. 09/29 completed Not Available Not Available Not Available acetamino phen 300 mg-codein e 30 mg tablet TAKE 1 TABLET BY MOUTH EVERY 4 TO 6 HOURS NEEDED FOR PAIN AFTER SURGERY 04/11 completed Not Available Not Available Not Available clopidogr el 75 mg tablet Take 1 tablet by mouth once daily active Not Available Not Available No t Available chlorthal idone 25 mg tablet Take 1 tablet by mouth once daily active Not Available Not Available No t Available aspirin 81 mg tablet,de layed release Take 81 mg by oral route. active Not Available Not Available No t Available Depo-Medr ol 80 mg/mL suspensio n for injection as directed 03/12 completed No adverse reaction to injectio n Not Available Not Available Not Available oxycodone -acetamin ophen 5 mg-325 mg tablet 07/07 completed Not Available Not Available Not Available terbinafi ne HCl 250 mg tablet Take 1 tablet by oral route. 03/10 completed Not Available Not Available Not Available amoxicill in 875 mg tablet Take 1 tablet every 12 hours by oral route for 10 days. 11/07 completed Not Available Not Available Not Available famotidin e 20 mg tablet TAKE 1 TABLET BY MOUTH TWICE DAILY active Not Available Not Available No t Available prednisol one acetate 1 % eye drops,maría pension INSTILL 1 DROP THREE TIMES DAILY IN BOTH EYES FOR 1 WEEK THEN 1 DROP 2 TIMES DAILY FOR 1 WEEK THEN 1 DROP ONCE DAILY FOR 1 WEEK. 04/11 completed Not Available Not Available Not Available betametha sone valerate 0.1 % topical cream APPLY CREAM TOPICALL Y TO AFFECTED AREA OF SKIN TWICE DAILY IN THE MORNING AND EVENING FOR 2 WEEKS 07/09 completed Not Available Not Available Not Available amlodipin e 10 mg tablet TAKE 1 TABLET BY MOUTH ONCE DAILY active Not Available Not Available No t Available benzonata te 100 mg capsule Take 1 capsule 3 times a day by oral route. 07/07 completed Not Available Not Available Not Available triamcino lone acetonide 0.1 % topical ointment APPLY A THIN LAYER TO THE AFFECTED AREA(S) BY TOPICAL ROUTE 2 TIMES PER DAY 2020 active Not Available Not Available Not Avai lable candesart an 16 mg tablet Take 1 tablet every day by oral route. 09/29 completed Not Available Not Available Not Available fluoxetin e 10 mg capsule Take 10 mg by oral route. 04/03 completed Not Available Not Available Not Available betametha sone dipropion ate 0.05 % topical cream APPLY TWICE DAILY TOPICALL Y active Not Available Not Available No t Available gabapenti n 300 mg capsule TAKE 1 CAPSULE BY MOUTH IN THE MORNING AND 1 AT NOON AND 2 IN THE EVENING active Not Available Not Available No t Available hydroxyzi ne HCl 25 mg tablet Take 1 tablet 3 times a day by oral route. 07/08 completed Not Available Not Available Not Available hydrochlo rothiazid e 25 mg tablet TAKE 1 TABLET BY MOUTH EVERY DAY 11/07 completed Not Available Not Available Not Available lisinopri l 10 mg-hydroc hlorothia zide 12.5 mg tablet Take 1 tablet every day by oral route. 07/08 completed Not Available Not Available Not Available methylpre dnisolone 4 mg tablets in a dose pack Take by oral route as directed on package 07/08 completed Not Available Not Available Not Available fluoxetin e 20 mg capsule Take 1 capsule every day by oral route. 04/04 completed Not Available Not Available Not Available metformin ER 500 mg tablet,ex tended release 24 hr Take 2 tablets by mouth once daily active Not Available Not Available No t Available clotrimaz ole 1 % topical cream APPLY CREAM TOPICALL Y TO AFFECTED AREA OF SKIN TWICE DAILY IN THE MORNING AND EVENING FOR TWO WEEKS 07/09 completed Not Available Not Available Not Available candesart an 8 mg tablet Take 8 mg twice a day by oral route. 03/30 completed Not Available Not Available Not Available atenolol 50 mg tablet Take 1 tablet every day by oral route. 11/11 completed Not Available Not Available Not Available irbesarta n 300 mg tablet TAKE 1 TABLET BY MOUTH ONCE DAILY DIRECTED active Not Available Not Available No t Available diazepam 5 mg tablet TAKE 1 TABLET BY MOUTH IMMEDIAT ATILIO PRIOR TO SURGERY DIRECTED 04/11 completed Not Available Not Available Not Available amoxicill in 875 mg-potass ium clavulana te 125 mg tablet 03/10 completed Not Available Not Available Not Available valsartan 160 mg tablet Take 1 tablet every day by oral route. 11/11 completed stopped by cardiolo gist as pat could not get because of recall Not Available Not Available Not Available insulin aspart U-100 100 unit/mL subcutane ous cartridge 02/16 completed Not Available Not Available Not Available heparin (porcine) 5,000 unit/mL injection syringe Take 5000 units by injectio n route. 02/16 completed Not Available Not Available Not Available metformin ER 1,000 mg tablet,ex tended release 24hr (osmotic) Take 1 tablet every day by oral route. 05/03 completed Not Available Not Available Not Available chlorhexi dine gluconate 0.12 % mouthwash 03/10 completed Not Available Not Available Not Available OneTouch Ultra2 Meter kit active Not Available Not Available No t Available ProAir HFA 90 mcg/actua tion aerosol inhaler Inhale 2 puffs every 4 hours by inhalati on route. 07/07 completed Not Available Not Available Not Available metformin ER 500 mg 24 hr tablet,ex tended release (gastric retention ) Take 2 tablets every day by oral route. 2020 active #60. Changed from Metformi n ER 1000mg ( Not covered) . Not Available Not Available Not Available metformin ER 1,000 mg 24 hr tablet,ex tended release (gastric reten.) TAKE 1 TABLET BY MOUTH EVERY DAY 04/11 completed 01/15/20 : Medicati on not covered by insuranc e. Changed to Metformi n ER 500mg (2) daily. Not Available Not Available Not Available OneTouch Delica Lancets 33 gauge active Not Available Not Available Not Available Tradjenta 5 mg tablet Take 1 tablet by mouth once daily active Not Available Not Available No t Available OneTouch Ultra Blue Test Strip active Not Available Not Available Not Available Vitals Date Recorded Body height Provider Name an d Address Organization Details Last Updated DateTime 10/02/2019 160.02 cm Toma Sylvester [facility] 2019 10:36:43 Date Recorded Body height Provider Name an d Address Organization Details Last Updated DateTime 01/10/2020 160.02 cm ERIC Alfaro [facility] 01/10/20 20 12:32:19 Date Recorded Body height Provider Name an d Address Organization Details Last Updated DateTime 04/11/2020 160.02 cm Tamie Bey RN [facility] 2020 11:17:17 Date Recorded Body height Body mass index (BMI) Body weight Body temperature Heart rate Systolic blood pressure Diastolic blood pressure Provider Name and Address Organization Details Last Updated DateTime 160.02 cm 31 kg/m2 36583.6 6 g 98.1 [degF] 71 /min 132 mm[Hg] 76 mm[Hg] Tamie Bey RN [facility] 11:37:36 Date Recorded Body height Provider Name an d Address Organization Details Last Updated DateTime 10/08/2020 160.02 cm Toma gaffney [place] [facility] 10/08/2020 10:57:36 Social History Question Answer Notes LastModified by Organizat ion Details LastModified Time Tobacco Smoking Status Never Smoker Tamie Bey RN null, [facility] 01/02/2016 16:22:07 Do You Have An Advance Directive? No Information not available 04/11/2020 What Is Your Level Of Alcohol Consumption? Occasional Information not available 01/02/2016 Are You Blind Or Do You Have Difficulty Seeing? No Information not available 04/11/2020 What Is Your Level Of Caffeine Consumption? Occasional Information not available 04/11/2020 In The 14 Days Before Symptom Onset, Have You Had Close Contact With A Laboratory-confir med COVID-19 While That Case Was Ill? No Information not available 07/03/2019 In The 14 Days Before Symptom Onset, Have You Had Close Contact With A Person Who Is Under Investigation For COVID-19 While That Person Was Ill? No Information not available 07/03/2019 Have You Been To An Area Known To Be High Risk For COVID-19? No [email or web address] Information not available 04/03/2019 Are You Deaf Or Do You Have Serious Difficulty Hearing? No Information not available 04/11/2020 What Type Of Diet Are You Following? REGULAR Information not available 01/02/2016 Which Illicit Or Recreational Drugs Have You Used? None [email or web address] Information not available 07/07/2017 Do You Or Have You Ever Used E-cigarettes Or Vape? 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 No Information not available 01/02/2016 Hard Of Hearing Or Deaf In One Or Both Ears? No Information not available 01/02/2016 Legally Blind In One Or Both Eyes? No Information no t available 01/02/2016 Marital Status Informatio n not available 01/02/2016 What Was The Date Of Your Most Recent Tobacco Screening? 10/08/2020 corona Information not available 10/08/2020 Performs Monthly Self-breast Exam? No Information no t available 01/02/2016 What Is Your Relationship Status? Information not available 04/11/2020 Do You Use Your Seat Belt Or Car Seat Routinely? Yes Information not available 04/11/2020 Seat Belts Used Routinely Yes Information not available 01/02/2016 Smoke Alarm In Home Yes Information not available 01/02/2016 Do You Have Smoke And Carbon Monoxide Detectors In Your Home? Yes Information not available 04/11/2020 Are You Passively Exposed To Smoke? No Information no t available 04/11/2020 Do You Or Have You Ever Used Smokeless Tobacco? Never Used Smokeless Tobacco Information not available 12/30/2018 How Much Tobacco Do You Smoke? No [email or web address] Information not available 07/07/2017 General Stress Level High Information not available 01/02/2016 Do You Feel Stressed (tense, Restless, Nervous, Or Anxious, Or Unable To Sleep At Night)? [id number] Information not available 04/11/2020 Do You Use Any Illicit Or Recreational Drugs? No Information not available 04/11/2020 Do You Use Sunscreen Routinely? No Information not available 01/02/2016 Do You Or Have You Ever Used Any Other Forms Of Tobacco Or Nicotine? No Information not available 04/11/2020 Sex: Female Functional Status Question Answer Note LastModified by Organizat ion Details LastModified Time Are you able to care for yourself? Yes Information not available 04/11/2020 What is your exercise level? Occasional Information not available 01/02/2016 Mental Status None recorded. Family History Relationship Description Onset Age of this Age Resolved Age Notes LastModified by Organization Details LastModified Time Father Diabetes mellitus Not available 2015 16:20:03 Father Cerebrovascu lar accident Not available 16:20:32 Father Hypertensive disorder yarauz Not available 2017 12:57:44 Mother Hypertensive disorder Not available 2015 16:20:45 Mother Osteoporosis Not avail able 01/02/2016 16:21:09 Sister Fibrocystic disease of breast Not available 2015 16:21:42 Sister Hypertensive disorder yarauz Not available 2017 17:57:56 Sister Seizure disorder yarauz Not available 2017 17:58:20 Sister Hyperlipidem ia yarauz Not available 2017 17:58:42 Sister Migraine yarauz Not available 0 07/08/2017 12:46:49 Brother Cerebrovascu lar accident 49 yarauz Not available 08/2017 12:58:02 Brother Burn of lower leg yarauz Not available 2018 17:44:34 Medical History Condition Response Anxiety Disorder Y Diabetes Y Liver Disease Y High Blood Pressure Y Stroke Y GI Problems Y Gynecological History Statement/Question Response Date of Last Mammogram 01/22/2020 Flow Heavy Date of LMP 09/06/2020 Duration of Flow (days) 5 Age at Menarche 15 Current Control Method Tubal Ligat ion Age at First Child 16 Frequency of Cycle (Q days) 28 Menses Monthly Y Date of Last Pap Smear 04/23/2020 LMP Definite Obstetrics History GPAL:G 5 P 5 0 0 5 Type Value Multiple Births 0 Full Term 5 Induced 0 Spontaneous 0 Premature 0 Living 5 Ectopics 0 Total 5 Immunizations Vaccine Type Date Status Note Provider Nam e and Address Organization Details Recorded Time Influenza, split virus, quadrivalent, preservative 8 completed Not Available [facility] 10/06/2021 07:28:02 COVID-19, mRNA, LNP-S, PF, 100 mcg/0.5mL dose or 50 mcg/0.25mL dose 1 completed Not Available [facility] 10/06/2021 07:28:02 Influenza, split virus, quadrivalent, preservative 7 completed Not Available [facility] 03/04/2019 02:44:55 Tdap 8 completed Not Available [facility] 03/04/2019 02:43:06 pneumococcal polysaccharide PPV23 9 completed Not Available [facility] 03/04/2019 02:42:04 Influenza, split virus, quadrivalent, preservative 9 completed Not Available [facility] 03/04/2019 02:42:32 Past Encounters Encounter ID Performer Location Encounter Start Date Encounter Closed Date Diagnosis/Indication Diagnosis SNOMED-CT Code Diagnosis ICD10 Code Diagnosis Note [id number] Ligia Rodríguez [facility] [address] [place] [address] 01/02/2016 16:11:32 01/06/2016 17:52:51 Adult health examination 338385779 Z00.00 Get labs drawn bebeto Get EKG and CXR BEBETO Essential hypertension 18440317 I10 Headache 20406008 R51 Most likely due to extremely elevated blood pressure Body mass index 25-29 - overweight 251673557 Z68.29 Stressed diet weight loss and exercise Stop OTC/Online drugs for weight loss--many risks associated with certain drugs [id number] [facility] [address] [place] [address] 01/03/2016 09:48:04 01/07/2016 17:48:32 Adult health examination 481290424 Z00.00 Essential hypertension 41987662 I10 Body mass index 25-29 - overweight 783473830 Z68.29 [id number] [facility] [address] [place] [address] 4 01/16/2016 12:27:16 01/23/2016 13:12:18 Essential hypertension 97188913 I10 As Hydrochlor othiazide 25mg not bringing b/p down will start Rx Lisinopril 10mg/hctz 12.5mg stressed diet daily exercise Prediabetes 238047864 R7 3.03 diet 1500 meal plan, 50-60 minutes of daily exercise and weight loss 5-15% of current body weight Left ventr icular hypertrophy 78213151 I51.7 [id number] [facility] [address], [place] [address] 02/20/2016 11:57:24 03/13/2016 08:59:06 Eruption 924161813 R21 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 hominis 076736250 B86 [id number] [facility] [address] [address] 4 03/12/2016 12:17:52 03/20/2016 11:53:20 Essential hypertension 47229294 I10 patient having a cough from Lisinopril will stop Rx Lisinopril and start Rx Atenolol 50 mg once daily and Rx Hydrochlor othiazide 25 mg daily stressed diet daily exercise Impaired g lucose tolerance 8659966 R73.02 Onychomyco sis of toenails 381423777 B35.1 12/2015 CMP normal [facility] symptoms and follow up Cough 63961900 R05 suspect DANE-I [id number] [place] [address] [place], [place] [address] 07/08/2016 11:23:29 07/10/2016 15:52:26 Essential hypertension 03492415 I10 Will increase Rx Atenolol 50 mg once daily to 100mg once daily and continue Rx Hydrochlor othiazide 25 mg daily stressed diet daily exercise Left ventr icular hypertrophy 56959906 I51.7 Obesity 499655853 E66.9 Cough 28833618 R05 resolved Onychomycosis 953538692 B35.1 Chest pain 70661822 R07. 9 [id number] [place] [address] [place] [address] 11/11/2016 11:48:23 11/17/2016 13:04:45 Essential hypertension 19002633 I10 Cardi[address] added Valsartan 80mg 1 daily (pt did not start) has at home and voices will start now stressed diet daily exercise Left ventr icular hypertrophy 39976197 I51.7 per ekg Obesity 455874052 E66.9 diet, weight loss and exercise Cough 18626870 R05 resolved since stopping ACEI Onychomycosis 487237736 B35.1 improving Chest pain 37565443 R07. [address] added another b/p med and advised on diet and weight loss Impaired g lucose tolerance 1033896 R73.02 will start Metformin Hyperlipidemia 61873251 E78.5 Avoid all breads, potatoes, cereal, pasta, rice, margarine, refined sugars, milk yogurt, ice cream, juices, soda (including diet), beer, and manmade or manufactur ed desserts. Enjoy fish, chicken (no skin), pork, butter, vegetables , beans, nuts, whole eggs, cheese (low fat or skim), cream in your coffee. will manage with diet, exercise and weightloss Administra tion of influenza vaccine 66013617 Z23 Multiple joint pain 3567 8005 M25.50 Screening mammography 24 274036 Z12.31 [id number] Ligia Rodríguez [facility] [address], [place] [address] 03/10/2017 11:20:31 03/17/2017 13:00:28 Essential hypertension 23325144 I10 Cardiolog[address] Increased Valsartan 80mg to 160mg daily Cardiologi st gave Metoprolol XL 100mg daily Continue both meds given per cardiology Will continue HCTZ 25mg daily B/P still high may need med change or addition of another agent stressed diet daily exercise weight loss Left ventr icular hypertrophy 22082446 I51.7 per ekg Obesity 555558880 E66.9 diet, weight loss and exercise Onychomycosis 365170830 B35.1 improving pt opted not to take more Lamisil Chest pain 22063122 R07. 9 Resolved-- seen by cardiologi st added another b/p med and advised on diet and weight loss Impaired g lucose tolerance 9357442 R73.02 will continue Metformin Hyperlipidemia 66753290 E78.5 Avoid all breads, potatoes, cereal, pasta, rice, margarine, refined sugars, milk yogurt, ice cream, juices, soda (including diet), beer, and manmade or manufactur ed desserts. Enjoy fish, chicken (no skin), pork, butter, vegetables , beans, nuts, whole eggs, cheese (low fat or skim), cream in your coffee. will manage with diet, exercise and weightloss Multiple joint pain 3567 8005 M25.50 resolved-- denies any pain now since ESR elevated will recheck today Administra tion of diphtheria, pertussis, and tetanus vaccine 741083871 Z23 needs update Acute bronchitis 8812574 2 J20.9 Type 2 ilana betes mellitus 48821193 E11.9 new onset advised to start Aspirin 81mg daily [id number] [facility] [address] [place] [address] 04/22/2017 09:42:06 05/04/2017 17:16:04 Abnormal liver function 41341423 K76.89 [id number] Ligia Rodríguez [facility] [address] [place] [address] 07/07/2017 12:08:13 07/09/2017 17:52:15 Essential hypertension 91403832 I10 [address] gave Valsartan 160mg daily Cardiologi st gave Metoprolol XL 100mg daily Continue both meds given per cardiology --has refills Will continue HCTZ 25mg daily 140/92 left wall unit B/P still high may need med change or addition of another agent stressed diet daily exercise weight loss Obesity 175261262 E66.9 diet, weight loss and exercise Type 2 ilana betes mellitus 28041147 E11.9 new onset advised to start Aspirin 81mg daily Hyperlipidemia 11064327 E78.5 Avoid all breads, potatoes, cereal, pasta, rice, margarine, refined sugars, milk yogurt, ice cream, juices, soda (including diet), beer, and manmade or manufactur ed desserts. Enjoy fish, chicken (no skin), pork, butter, vegetables , beans, nuts, whole eggs, cheese (low fat or skim), cream in your coffee. will manage with diet, exercise and weightloss Niacin 250mg 3 times daily Hawi 3 FA 1000mg 3 times daily Liver func tion tests outside reference range 315110262 R94.5 suspect fatty liver Left ventr icular hypertrophy 88322685 I51.7 per ekg [id number] KRISTI NielsenP-BC [facility] [address] [place] [address] 09/08/2017 12:06:01 09/13/2017 17:47:45 Multiple skin tags on neck 892522826 L91.8 removal of skin tags from neck--fibr ocutaneous tags Essential hypertension 36392122 I[address] gave Valsartan 160mg daily Cardiologi st gave Metoprolol XL 100mg daily Continue both meds given per cardiology --has refills Will continue HCTZ 25mg daily May need to add another agent stressed diet daily exercise weight loss [id number] Magdy Motta MD [facility] [address] [place] [address] 12/22/2017 12:21:00 12/22/2017 18:34:19 Essential hypertension 72110389 I[address] gave Candesarta n 8mg daily as patient still elevated will increase to 16mg daily Patient to come in for B/P check with RN in [address] gave Metoprolol XL 100mg daily-has refills Will continue HCTZ 25mg daily stressed diet daily exercise weight loss Hyperlipidemia 15279336 E78.5 Avoid all breads, potatoes, cereal, pasta, rice, margarine, refined sugars, milk yogurt, ice cream, juices, soda (including diet), beer, and manmade or manufactur ed desserts. Enjoy fish, chicken (no skin), pork, butter, vegetables , beans, nuts, whole eggs, cheese (low fat or skim), cream in your coffee. will manage with diet, exercise and weight loss Hawi 3 FA 1000mg 3 times daily Type 2 ilana betes mellitus 45819975 E11.9 new onset advised to start Aspirin 81mg daily Obesity 425581694 E66.9 diet, weight loss and exercise Liver func tion tests outside reference range 335868631 R94.5 suspect fatty liver Left ventr icular hypertrophy 72404782 I51.7 per ekg [id number] Magdy Motta MD [facility] [address] [place] [address] 02/16/2018 12:57:22 02/22/2018 12:39:24 Follow-up visit 222165632 Z09 improving History of cerebrovascular accident 477669168 Z86.73 stable Type 2 ilana betes mellitus 38286137 E11.9 new onset advised to re-start Aspirin 81mg daily Liver func tion tests outside reference range 076627875 R94.5 keep appt to see GI Right hemiparesis 033362 009 G81.90 keep appointmen t with Neurology [id number] Ligia Rodríguez [facility] [address] [place] [address] 03/30/2018 11:39:34 04/04/2018 10:42:47 Type 2 diabetes mellitus 51460286 E11.9 new onset stop Aspirin Essential hypertension 18015872 I[address] gave Metoprolol XL 100mg daily continue Candesarta n 16mg daily has 11 refills continue Amlodipine 19mg daily has 11 refills Will continue HCTZ 25mg daily stressed diet daily exercise weight loss Hyperlipidemia 13006875 E78.5 Avoid all breads, potatoes, cereal, pasta, rice, margarine, refined sugars, milk yogurt, ice cream, juices, soda (including diet), beer, and manmade or manufactur ed desserts. Enjoy fish, chicken (no skin), pork, butter, vegetables , beans, nuts, whole eggs, cheese (low fat or skim), cream in your coffee. will manage with diet, exercise and weight loss Hawi 3 FA 1000mg 3 times daily Left ventr icular hypertrophy 37543526 I51.7 per ekg Obesity 469589127 E66.9 diet, weight loss and exercise History of cerebrovascular accident 318291130 Z86.73 stable Right hemiparesis 421837 009 G81.90 saw neurology on 02/2018 Mixed anxi ety and depressive disorder 933218324 F41.8 still with some depression symptomswi ll increase Fluoxetine 10mg to 20mg daily Pain of ri ght shoulder joint 5479918011 8272471 M25.519 [id number] Magdy Motta MD [facility] [address] [place] [address] 04/18/2018 12:14:17 04/20/2018 09:01:25 Uterine leiomyoma 69632415 D25.9 will have the patient see her puller through Pain of ri ght shoulder joint 3164201046 9636843 M25.511 continue PT Osteoarthritis 890163878 M19.90 [id number] Magdy Motta MD [facility] [address] [place] [address] 06/15/2018 11:42:46 06/16/2018 09:10:45 Type 2 diabetes mellitus 73113245 E11.9 Hyperlipidemia 03309092 E78.5 Avoid all breads, potatoes, cereal, pasta, rice, margarine, refined sugars, milk yogurt, ice cream, juices, soda (including diet), beer, and manmade or manufactur ed desserts. Enjoy fish, chicken (no skin), pork, butter, vegetables , beans, nuts, whole eggs, cheese (low fat or skim), cream in your coffee. will manage with diet, exercise and weight loss Hawi 3 FA 1000mg 3 times daily Essential hypertension 77422290 I[address] gave Metoprolol XL 100mg daily continue Candesarta n 16mg daily has 11 refills continue Amlodipine 10mg daily has 11 refills Will continue HCTZ 25mg daily stressed diet daily exercise weight loss Left ventr icular hypertrophy 12040506 I51.7 per ekg Obesity 339725686 E66.9 diet, weight loss and exercise History of cerebrovascular accident 301374976 Z86.73 stable Right hemiparesis 249046 009 G81.90 saw neurology on 02/2018Impr oving Mixed anxi ety and depressive disorder 154569594 F41.8 still with some depression symptomswi ll continue Fluoxetine 20mg daily Pain of ri ght shoulder joint 5716425500 4498742 M25.511 continue PTwill obtain a PT progress report Spasm 70146010 R25.2 R deltoid area unable to lift arm 2/2 to discomfort Still has 1 month of PT left [id number] Magdy Motta MD [facility] [address] [place] [address] 07/21/2018 11:04:33 07/22/2018 09:50:48 Laceration of finger 241018497 S61.210D Healing avulsion laceration of R PIPJ dorsal side/back of finger cleaned wound with normal saline and gauze applied steri strips and splint to R middle finger Superficia l laceration of finger 578313320 S61.211A Healing brown scab over tip of index finger [id number] Ligia Rodríguez, [employer]-[facility] [address] [place] [address] 09/29/2018 11:03:55 09/30/2018 16:36:50 Type 2 diabetes mellitus 51528335 E11.9 HA1C 7.2 today Essential hypertension 62569362 I10 B/P 178/[address] gave Metoprolol XL 100mg daily will increase to 200mg as b/p not well controlled continue Candesarta n 16mg daily has 11 refills continue Amlodipine 10mg daily has 11 refills Will continue HCTZ 25mg daily will stressed diet daily exercise weight loss Hyperlipidemia 32204324 E78.5 Avoid all breads, potatoes, cereal, pasta, rice, margarine, refined sugars, milk yogurt, ice cream, juices, soda (including diet), beer, and manmade or manufactur ed desserts. Enjoy fish, chicken (no skin), pork, butter, vegetables , beans, nuts, whole eggs, cheese (low fat or skim), cream in your coffee. will manage with diet, exercise and weight loss Hawi 3 FA 1000mg 3 times daily Left ventr icular hypertrophy 73483472 I51.7 per ekgsaw cardiology 07/2018no med changes-ma ke sure to continue Aspirin 81mg daily Obesity 185992242 E66.9 diet, weight loss and exercise History of cerebrovascular accident 877148383 Z86.73 stable Right hemiparesis 109043 009 G81.90 saw neurology on 02/2018Impr oving Mixed anxi ety and depressive disorder 918384945 F41.8 still with some depression symptomswi ll continue Fluoxetine 20mg daily Pain of ri ght shoulder joint 2180505359 0923132 M25.511 continue PTwill obtain a PT progress report Spasm 94441011 R25.2 R deltoid area unable to lift arm 2/2 to discomfort Still has 1 month of PT left Right foot drop 78075290 01 01720 M21.371 Abnormal l iver function 84097304 K76.89 elevatedsa w GI Spasm of s phincter of Oddi 25133078 K83.4 Had stents [id number] Magdy Motta MD [facility] [address] [place] [address] 12/30/2018 10:55:21 01/02/2019 15:26:34 Type 2 diabetes mellitus 07662615 E11.9 HA1C 7.2 today continue present regimen Hyperlipidemia 36785981 E78.5 Avoid all breads, potatoes, cereal, pasta, rice, margarine, refined sugars, milk yogurt, ice cream, juices, soda (including diet), beer, and manmade or manufactur ed desserts. Enjoy fish, chicken (no skin), pork, butter, vegetables , beans, nuts, whole eggs, cheese (low fat or skim), cream in your coffee. will manage with diet, exercise and weight loss Hawi 3 FA 1000mg 3 times daily- Essential hypertension 46358329 I10 B/P L arm better 157/[address] gave Metoprolol XL 100 mg daily I l increased it to 200 mg at last visit as b/p not well controlled -today better but still needs improvemen t continue Candesarta n 16mg daily has 8 refills -it appears this one was changed to irbesartan 300mg daily continue Amlodipine 10mg daily has 8 refills Will continue HCTZ 25mg daily will stressed diet daily exercise weight loss Left ventr icular hypertrophy 53917237 I51.7 per ekgsaw cardiology 07/2018-car diology f/u due 01/2019no med changes-ma ke sure to continue Aspirin 81mg daily Obesity 217858063 E66.9 diet, weight loss and exercise History of cerebrovascular accident 899873704 Z86.73 stable Right hemiparesis 676474 009 G81.90 saw neurology on 02/2018Impr oving Mixed anxi ety and depressive disorder 003918837 F41.8 still with some depression symptomswi ll increase Fluoxetine 20mg daily to 30mg daily --will give her Klonopn for severe symptoms as the anniversar y of her stroke coming up Pain of ri ght shoulder joint 8436221742 3757439 M25.511 continue PTwill obtain a PT progress report Spasm 55015841 R25.2 Better Abnormal l iver function 06953271 K76.89 elevatedsa w Brad recheck today Spasm of s phincter of [place] 86790780 K83.4 Had stents Administra tion of influenza vaccine 92711358 Z23 [id number] Ligia Rodríguez, [employer]-[facility] [address] [place] [address] 04/03/2019 11:08:44 04/04/2019 09:30:53 Type 2 diabetes mellitus 63253872 E11.9 HA1C 7.4today continue present regimen Essential hypertension 98422627 I10 B/P L arm better 145/[address] gave Metoprolol XL 100 mg daily I l increased it to 200 mg at last visit as b/p not well controlled -today better but still needs improvemen t continue irbesartan 300mg daily (switched from Candesarta n) continue Amlodipine 10mg daily per cardiologi st Will continue HCTZ 25mg daily stressed diet daily exercise weight loss Hyperlipidemia 46409000 E78.5 Avoid all breads, potatoes, cereal, pasta, rice, margarine, refined sugars, milk yogurt, ice cream, juices, soda (including diet), beer, and manmade or manufactur ed desserts. Enjoy fish, chicken (no skin), pork, butter, vegetables , beans, nuts, whole eggs, cheese (low fat or skim), cream in your coffee. will manage with diet, exercise and weight loss Hawi 3 FA 1000mg 3 times daily- Left ventr icular hypertrophy 59562828 I51.7 per ekgsaw cardiology 07/2018-car diology f/u due 01/2019-wa s reschedule d for 04/11/[address] leftno med changes-ma ke sure to continue Aspirin 81mg daily Obesity 490420612 E66.9 diet, weight loss and exercise Mixed anxi ety and depressive disorder 642488525 F41.8 still with some anxiety/de pression symptomswi ll increase Fluoxetine 30mg daily -to 40mg Spasm 87374701 R25.2 Better Abnormal l iver function 16184598 K76.89 slightly elevatedsa w Brad recheck today Spasm of s phincter of Oddi 92259653 K83.4 Had stents Body mass index 30+ - obesity 284818985 Z68.31 BMI 31.8Ht 5' 3 Healthy weight range 105-140 History of hemorrhagic stroke with residual hemiparesis 1286793525 35396 I69.259 saw neurology on 02/2018 Improving- no follow up HIV screening 981035307 Z11.4 Posterior rhinorrhea 758 95322 R09.82 samples of zyrtec 10mg Snoring 64030333 R06.83 will send for sleep study [id number] KRISTI NielsenP-[facility] [address] [place] [address] 07/03/2019 11:13:27 07/11/2019 14:15:59 Type 2 diabetes mellitus 70286924 E11.9 HA1C 7.4 continue present regimen Essential hypertension 52971721 I[address] gave Metoprolol XL 100 mg daily I l increased it to 200 mg at last visit as b/p not well controlled -today better but still needs improvemen t continue irbesartan 300mg daily (switched from Candesarta n) continue Amlodipine 10mg daily per cardiologi st Will continue HCTZ 25mg daily stressed diet daily exercise weight loss Hyperlipidemia 39502287 E78.5 Avoid all breads, potatoes, cereal, pasta, rice, margarine, refined sugars, milk yogurt, ice cream, juices, soda (including diet), beer, and manmade or manufactur ed desserts. Enjoy fish, chicken (no skin), pork, butter, vegetables , beans, nuts, whole eggs, cheese (low fat or skim), cream in your coffee. will manage with diet, exercise and weight loss Hawi 3 FA 1000mg 3 times daily- Left ventr icular hypertrophy 77441776 I51.7 per ekgsaw cardiology 07/2018-car diology f/u due 01/2019-wa s reschedule d for 04/11/[address] leftno med changes-ma ke sure to continue Aspirin 81mg daily Obesity 511381800 E66.9 diet, weight loss and exercise History of hemorrhagic stroke with residual hemiparesis 4856207065 64751 I69.259 saw neurology on 02/2018 Improving- no follow up Mixed anxi ety and depressive disorder 682790924 F41.8 still with some anxiety/de pression symptomswi ll increase Fluoxetine 40mg daily -to 40mg bid Body mass index 30+ - obesity 112001761 Z68.31 BMI 31.8Ht 5' 3 Healthy weight range 105-140 Obstructiv e sleep apnea of adult 3692818482 103 G47.33 Patient had home sleep study and it shows mild OSAPatient doesnt have insurance now will hold off ordering cpap now [id number] Ligia Rodríguez, [employer]-[facility] [address], [place] [address] 10/02/2019 10:30:10 10/03/2019 07:36:38 Type 2 diabetes mellitus 09832960 E11.9 HA1C 7.4 continue present regimen Essential hypertension 69355436 I[address] gave Metoprolol succinate 200mg at last visit continue irbesartan 300mg daily (switched from Candesarta n) continue Amlodipine 10mg daily per cardiologi st continue HCTZ 25mg daily will refill all her meds as she is almost out-has appointmen t with new cardiologi st next month stressed diet daily exercise weight loss Hyperlipidemia 67586193 E78.5 Avoid all breads, potatoes, cereal, pasta, rice, margarine, refined sugars, milk yogurt, ice cream, juices, soda (including diet), beer, and manmade or manufactur ed desserts. Enjoy fish, chicken (no skin), pork, butter, vegetables , beans, nuts, whole eggs, cheese (low fat or skim), cream in your coffee. will manage with diet, exercise and weight loss Hawi 3 FA 1000mg 3 times daily- Left ventr icular hypertrophy [id number] I51.7 per ekgsaw cardiology 07/2018-car diology f/u due 01/2019-wa s seen by another cardiologi st for 04/11/[address] leftno med changes-ma ke sure to continue Aspirin 81mg daily Obesity 711450375 E66.9 diet, weight loss and exercise History of hemorrhagic stroke with residual hemiparesis [id number] 32096 I69.259 saw neurology on 02/2018 Improving- no follow up Mixed anxi ety and depressive disorder 622766243 F41.8 still with some anxiety/de pression symptomswi ll increase Fluoxetine 40mg daily -to 40mg bid Body mass index 30+ - obesity 791098902 Z68.31 BMI 31.8Ht 5' 3 Healthy weight range 105-140 Obstructiv e sleep apnea of adult 1634000710 103 G47.33 Patient had home sleep study and it shows mild OSAPatient doesnt have insurance now will hold off ordering cpap now Acute left otitis media 350539637 H66.92 Burning ep igastric pain 67988707 R10.13 History of cerebrovascular accident 466448250 Z86.73 stable [id number] SIMONE PATTON NP [facility] [address] [place] [address] 01/10/2020 12:29:38 01/12/2020 06:20:29 Type 2 diabetes mellitus 78806905 E11.21 Hyperlipidemia 76261778 E78.5 Mixed anxi ety and depressive disorder 775423633 F41.8 Essential hypertension 22823202 I10 [id number] Ligia Rodríguez, [facility] [address] [place] [address] 04/11/2020 11:13:55 04/12/2020 11:47:52 Essential hypertension 03439914 I[address] gave Metoprolol succinate 200mg at last visit continue irbesartan 300mg daily (switched from [place]) continue Amlodipine 10mg daily per cardiologi st continue chlorthali done 25mg once daily will refill all her meds as she is almost out-has appointmen t with new cardiologi st next month stressed diet daily exercise weight loss Type 2 ilana betes mellitus 63720304 E11.9 HA1C 7.4 continue present regimen Hyperlipidemia 49924058 E78.5 Avoid all breads, potatoes, cereal, pasta, rice, margarine, refined sugars, milk yogurt, ice cream, juices, soda (including diet), beer, and manmade or manufactur ed desserts. Enjoy fish, chicken (no skin), pork, butter, vegetables , beans, nuts, whole eggs, cheese (low fat or skim), cream in your coffee. will manage with diet, exercise and weight loss Hawi 3 FA 1000mg 3 times daily- Left ventr icular hypertrophy 63182832 I51.7 per ekgsaw cardiology 07/2018-car diology f/u due 01/2019-wa s seen by another cardiologi st for 04/11/[address] leftno med changes-ma ke sure to continue Aspirin 81mg daily Obesity 968145252 E66.9 diet, weight loss and exercise History of hemorrhagic stroke with residual hemiparesis 7732775466 49564 I69.259 saw neurology on 02/2018 Improving- no follow up Mixed anxi ety and depressive disorder 746278037 F41.8 still with some anxiety/de pression symptomswi ll increase Fluoxetine 40mg daily -to 40mg bid Body mass index 30+ - obesity 444144513 Z68.31 BMI 31.8Ht 5' 3 Healthy weight range 105-140 Obstructiv e sleep apnea of adult 5160273094 103 G47.33 Patient had home sleep study and it shows mild OSAPatient doesnt have insurance now will hold off ordering cpap now Burning ep igastric pain 08605945 R10.13 History of cerebrovascular accident 683528115 Z86.73 stable Anticoagulant therapy 18 5148920 Z79.01 [id number] ARELY Nielsen-[facility] [address], [place] [address] 07/09/2020 10:56:54 07/10/2020 15:54:32 Type 2 diabetes mellitus 56193460 E11.9 04/2020 HA1C 7.1 Today HA1C 8.3 continue present regimen Hyperlipidemia 99812914 E78.5 04/19/2020 cho 120 HDL 38 Trig 142 LDL 59 Avoid all breads, potatoes, cereal, pasta, rice, margarine, refined sugars, milk yogurt, ice cream, juices, soda (including diet), beer, and manmade or manufactur ed desserts. Enjoy fish, chicken (no skin), pork, butter, vegetables , beans, nuts, whole eggs, cheese (low fat or skim), cream in your coffee. will manage with diet, exercise and weight loss Hawi 3 FA 1000mg 3 times daily- Essential hypertension 41787260 I10 Continue Metoprolol succinate 200mg continue irbesartan 300mg daily (switched from [place] n) continue Amlodipine 10mg daily per cardiologi st has 12 refills continue chlorthali done 25mg once daily will refill all her meds as she is almost out-hadapp ointment with new cardiologi st Dr. Benjamin on 04/03/2020n no med changes stressed diet daily exercise weight loss Obesity 600203573 E66.9 diet, weight loss and exercise History of hemorrhagic stroke with residual hemiparesis 3499102183 06892 I69.259 saw neurology on 03/2020 recently diagnosed with migraine headaches on Gabapentin 300mg 1 capsule in the am and at noon then 2 in the evenings Mixed anxi ety and depressive disorder 310350448 F41.8 still with some anxiety/de pression symptomswi ll increase Fluoxetine 40mg daily -to 40mg bid Body mass index 30+ - obesity 785884002 Z68.31 BMI 31.8Ht 5' 3 Healthy weight range 105-140 Burning ep igastric pain 81010795 R10.13 History of cerebrovascular accident 073982644 Z86.73 stable continues to take Plavix 75mg daily cardiologi st gave refills Anemia 142053206 D64.9 continue ferrous sulfate 325mg daily iron rich foods Migraine without aura 56 941997 G43.009 stable seen by neurology started on Gabapentin 300mg (4 Tabs) [id number] Ligia Rodríguez, [employer]-[facility] [address] [place] [address] 10/08/2020 10:54:17 10/09/2020 10:35:22 Type 2 diabetes mellitus 59131489 E11.9 04/2020 HA1C 7.1 07/09/20 HA1C 8.3 (She had just returned from vacation)S He is not checking BS at homeShe denies any polysconti nue present regimen Hyperlipidemia 64972338 E78.5 04/19/2020 cho 120 HDL 38 Trig 142 LDL 59 Avoid all breads, potatoes, cereal, pasta, rice, margarine, refined sugars, milk yogurt, ice cream, juices, soda (including diet), beer, and manmade or manufactur ed desserts. Enjoy fish, chicken (no skin), pork, butter, vegetables , beans, nuts, whole eggs, cheese (low fat or skim), cream in your coffee. continue diet, exercise and weight loss Hawi 3 FA 1000mg 3 times daily- Essential hypertension 97012789 I10 Target 130/80b/p at home 120/80Cont inue Metoprolol succinate 200mg discontinu ed by new cardiologi st continue irbesartan 300mg daily (switched from [place]) continue Amlodipine 10mg daily per cardiologi st has 12 refills continue chlorthali done 25mg once daily will refill all her meds as she is almost out-hadapp ointment with new cardiologi st Dr. Benjamin on 04/03/2020n no med changes stressed diet daily exercise weight loss Obesity 681513826 E66.9 diet, weight loss and exercise History of hemorrhagic stroke with residual hemiparesis 9814566758 68571 I69.259 saw neurology on 03/2020 recently diagnosed with migraine headaches on Gabapentin 300mg 1 capsule in the am and at noon then 2 in the evenings Mixed anxi ety and depressive disorder 943118581 F41.8 still with some anxiety/de pression symptomswi ll increase Fluoxetine 40mg daily -to 40mg bid Body mass index 30+ - obesity 279485165 Z68.31 BMI 31.8Ht 5' 3 Healthy weight range 105-140 Burning ep igastric pain 60698751 R10.13 History of cerebrovascular accident 308396551 Z86.73 stable continues to take Plavix 75mg daily cardiologi st gave refills Anemia 691658243 D64.9 continue ferrous sulfate 325mg daily iron rich foods Migraine without aura 56 072730 G43.009 stable seen by neurology started on Gabapentin 300mg (4 Tabs) Pruritic rash 37634228 L 28.2 Mixed hyperlipidemia 267 935837 E78.2 04/19/2020 cho 120 HDL 38 Trig 142 LDL 59 Avoid all breads, potatoes, cereal, pasta, rice, margarine, refined sugars, milk yogurt, ice cream, juices, soda (including diet), beer, and manmade or manufactur ed desserts. Enjoy fish, chicken (no skin), pork, butter, vegetables , beans, nuts, whole eggs, cheese (low fat or skim), cream in your coffee. continue diet, exercise and weight loss Hawi 3 FA 1000mg 3 times daily-cont inue atorvastat in Screening for malignant neoplasm of colon 629626784 Z12.11 49 y/o HF needs screening colonoscop y Health Concerns Section Related Observation LastModified by Organization Detai ls LastModified Time None Recorded Concern Status LastModified by Organization Details LastModified Time None Recorded Advance Directives Directive N: Payers Encounter Date Sequence Insurance Name Policy Number Policy Means Covered Member ID Means Member ID Guarantor Name 10/02/2019 2 *SELF PAY* Danuta Rush 01/10/2020 1 [facility] PRIOR TO 08/15/2020 (MEDICAID REPLACEMENT - HMO) Salome Rush [id number] Salome Rush 04/11/2020 2 *SELF PAY* Danuta Rush 04/11/2020 1 [facility] PRIOR TO 08/15/2020 (MEDICAID REPLACEMENT - HMO) Salome Rush [id number] Salome Rush 07/09/2020 1 [facility] PRIOR TO 08/15/2020 (MEDICAID REPLACEMENT - HMO) Salome Rush [id number] Salome Rush 10/08/2020 2 [place] [facility] Salome Rush [id number] Salome Rush 10/08/2020 1 [place] Salome Rush [id number] Salome Rush Notes Date Note Type Note Provider Name and Address Organization Details Recorded Time 0 text/html Diabetes F/UReported bypatient.Review finger sticks:fastin Labs:last A1C result: 7.4 Context:normal range of home blood sugars (in the low 100s); seeing eye doctor regularly; checking feet regularly Associated Symptoms:no weight gain; no weight loss; no dizziness; no sweats; no headaches; no confusion; no increased thirst; no increased appetite; no increased urination; no blurred vision; no numbness of feet; no calluses on feetHypertension F/UReported bypatient.Associated Symptoms:no dizziness; no lightheadedness; no chest pain; no shortness of breath; no palpitations; no edema; no calf pain with exertion Lifestyle:regular exercise; limiting/avoiding salt Medications:taking medications as directed; no side effects from medication This visit was completed via telephone due to restrictions of the COVID-19 pandemic. All issues as below were discussed and addressed but no physical exam was performed. If it was felt that the patient should be evaluated in health center then they were directed there. The patient verbally consented to visit. 48 y/o HF on the telephone for chronic medical problems medications. She had a CVA on 01/21/2018. Shewas increased to Fluoxetine 40mg BID at last visit .She feels better. She is taking Atorvastatin 40mg now no problems. She was restarted on statin at prior visit. Her LFT's were checked too and were a little elevated. SHe has now had multiple testing with GI and recently had Endoscopic Retrograde Cholangio pancreatogram which showed strictures. She had interventions done and liver functions are normalizing. SHe is feeling a lot better her speech has improved. SHe is now ambulating without a cane. She got orthotics for her foot drop on the R and its helping. She denies any headaches CP, syncope, pre-syncope, edema, headache or SOB. SHe does feel tired occasionally. Reports lately wakes up with L back of head pressure a little headache like. She saw [facility]ILLET STRA[facility]ENER for WWE and fibroids. She is aware of the need to continue doing her rehab therapy exercises on a daily basis. She continues to do what she learns in rehab therapy at home. She has been getting therapy for R shoulder pain and stiffness. It has helped her. Occasionally has R shoulder discomfort but i have reminded her she has arthritis which is aggravated by the cold. SHe may use heat for it and continue ROM exercises. She wants to know if its normal to feel afraid about engaging in sexual activity secondary to her stroke. I have advised her importance of keeping DM and HTN under controll and to take her medications as directed. In addition, that many patients that have had cardiovascular events feel that way but that she should be fine. Her b/p at home in the 130's/80. She feels her b/p elevated at office. She has appointment coming up with new cardiologists next month as Dr. Shamar chavez. She saw Dr. Coates at [facility]. She c/o left ear pain and popping sound for a few weeks no fever. She has allergies. She c/o mid epigastric burning especially after taking her medications on an empty stomach. GRIS Nielsen Attn: Accounting,[address] [facility], [place], [address], [facility] 10/02/2019 11:21:36 0 text/html This visit was completed via telephone due to restrictions of the COVID-19 pandemic. All issues as below were discussed and addressed but no physical exam was performed. If it was felt that the patient should be evaluated in health center then they were directed there. The patient verbally consented to visit. 48 y/o HF on the telephone for chronic medical problems medications she admits that she is taking her medications and denies any side effects. She had a CVA on 01/21/2018. pt has a hx of anxiety and states that she recently had a panic attack in the car she admits that she had clonopin for SIMONE PATTON NP Attn: Accounting,[address] [facility], [place], [address], [facility] 01/10/2020 14:16:32 0 text/html Anxiety/DepressionReported bypatient.Quality:panic symptoms(3-4x's a year) Severity:denies suicidal ideations; able to maintain relationships; does not interfere with activities of daily living Context:no major life stressors Associated Symptoms:denies homicidal ideations; no significant weight gain; no significant weight loss; no visual/auditory hallucinations; no delusions; no shortness of breath; mood good; no anxiety; no crying spells; no panic; no isolation; sleeping well; appetite good; energy good; no apathy; maintaining functionality SIMONE PATTON NP Attn: Accounting,[address] [facility], [place], [address], [facility] 01/10/2020 14:16:32 1 text/html Anxiety/DepressionReported bypatient.Quality:panic symptoms(3-4x's a year) Severity:denies suicidal ideations; able to maintain relationships; does not interfere with activities of daily living Context:no major life stressors Associated Symptoms:denies homicidal ideations; no significant weight gain; no significant weight loss; no visual/auditory hallucinations; no delusions; no shortness of breath; mood good; no anxiety; no crying spells; no panic; no isolation; sleeping well; appetite good; energy good; no apathy; maintaining functionalityDiabetes F/UReported bypatient.Review finger sticks:fastin Labs:last A1C result: 7.4 Context:normal range of home blood sugars (in the low 100s); seeing eye doctor regularly; checking feet regularly Associated Symptoms:no weight gain; no weight loss; no dizziness; no sweats; no headaches; no confusion; no increased thirst; no increased appetite; no increased urination; no blurred vision; no numbness of feet; no calluses on feetHypertension F/UReported bypatient.Associated Symptoms:no dizziness; no lightheadedness; no chest pain; no shortness of breath; no palpitations; no edema; no calf pain with exertion Lifestyle:regular exercise; limiting/avoiding salt Medications:taking medications as directed; no side effects from medication This visit was completed via telephone due to restrictions of the COVID-19 pandemic. All issues as below were discussed and addressed but no physical exam was performed. If it was felt that the patient should be evaluated in health center then they were directed there. The patient verbally consented to visit. 48 y/o HF on the telephone for chronic medical problems medications. She had a CVA on 01/21/2018. Shewas increased to Fluoxetine 40mg BID at last visit .She feels better. She is taking Atorvastatin 40mg now no problems. She was restarted on statin at prior visit. Her LFT's were checked too and were a little elevated. SHe has now had multiple testing with GI and recently had Endoscopic Retrograde Cholangio pancreatogram which showed strictures. She had interventions done and liver functions are normalizing. SHe is feeling a lot better her speech has improved. SHe is now ambulating without a cane. She got orthotics for her foot drop on the R and its helping. She denies any headaches CP, syncope, pre-syncope, edema, headache or SOB. SHe does feel tired occasionally. Reports lately wakes up with L back of head pressure a little headache like. She saw neurology for headaches and whether to discontinue plavik. She was started on gabapentin and feels better. Still taking Plavik c/o some bruising on her arms. She saw BILLET STRAIGHTENER back in 2016 for WWE and fibroids. She is due for pap and was reminded to schedule appointment. She is aware of the need to continue doing her rehab therapy exercises on a daily basis. She continues to do what she learned in rehab therapy at home. I have advised her importance of keeping DM and HTN under controll and to take her medications as directed. Her b/p at home in the 130's/80. She saw new drapery hanger DR. BENJAMIN and has f/u appointment in 6 months. She has allergies. ARELY Nielsen-ANANYA Attn: Accounting,[address] [place], [address], [facility] 04/11/2020 12:27:19 1 text/html Anxiety/DepressionReported bypatient.Quality:panic symptoms(3-4x's a year) Severity:denies suicidal ideations; able to maintain relationships; does not interfere with activities of daily living Context:no major life stressors Associated Symptoms:denies homicidal ideations; no significant weight gain; no significant weight loss; no visual/auditory hallucinations; no delusions; no shortness of breath; mood good; no anxiety; no crying spells; no panic; no isolation; sleeping well; appetite good; energy good; no apathy; maintaining functionalityDiabetes F/UReported bypatient.Review finger sticks:fastin Labs:last A1C result: 7.4 Context:normal range of home blood sugars (in the low 100s); seeing eye doctor regularly; checking feet regularly Associated Symptoms:no weight gain; no weight loss; no dizziness; no sweats; no headaches; no confusion; no increased thirst; no increased appetite; no increased urination; no blurred vision; no numbness of feet; no calluses on feetHypertension F/UReported bypatient.Associated Symptoms:no dizziness; no lightheadedness; no chest pain; no shortness of breath; no palpitations; no edema; no calf pain with exertion Lifestyle:regular exercise; limiting/avoiding salt Medications:taking medications as directed; no side effects from medication 49 y/o HF presents for chronic medical problems medications refill She had a CVA on 01/21/2018. She was increased to Fluoxetine 40mg BID at last visit .She feels better. She is taking Atorvastatin 40mg now no problems. SHe has now had multiple testing with GI and recently had Endoscopic Retrograde Cholangio pancreatogram which showed strictures. She had interventions done and liver functions are normalizing. SHe is feeling a lot better her speech has improved. SHe now ambulates without a cane. She got orthotics for her foot drop on the R and its helping. She denies any headaches CP, syncope, pre-syncope, edema, headache or SOB. SHe does feel tired occasionally. Reports lately wakes up with L back of head pressure a little headache like. She saw neurology for headaches and whether to discontinue plavik. She was started on gabapentin and feels better. Still taking Plavik c/o some bruising on her arms. She saw BILLET STRAIGHTENER back in 04/2020 for WWE .She is aware of the need to continue doing her rehab therapy exercises on a daily basis. She continues to do what she learned in rehab therapy at home. I have advised her importance of keeping DM and HTN under controll and to take her medications as directed. Her b/p at home in the 130's/80. She saw new drapery hanger DR. BENJAMIN and has f/u appointment in 6 months. She has allergies. KRISTI NielsenP- Attn: Accounting,[address] [place], [address], [facility] 07/10/2020 14:55:09 1 text/html Anxiety/DepressionReported bypatient.Quality:panic symptoms(3-4x's a year) Severity:denies suicidal ideations; able to maintain relationships; does not interfere with activities of daily living Context:no major life stressors Associated Symptoms:denies homicidal ideations; no significant weight gain; no significant weight loss; no visual/auditory hallucinations; no delusions; no shortness of breath; mood good; no anxiety; no crying spells; no panic; no isolation; sleeping well; appetite good; energy good; no apathy; maintaining functionality Diabetes F/UReported bypatient.Review finger sticks:fastin Labs:last A1C result: 7.4 Context:normal range of home blood sugars (in the low 100s); seeing eye doctor regularly; checking feet regularly Associated Symptoms:no weight gain; no weight loss; no dizziness; no sweats; no headaches; no confusion; no increased thirst; no increased appetite; no increased urination; no blurred vision; no numbness of feet; no calluses on feetHypertension F/UReported bypatient.Associated Symptoms:no dizziness; no lightheadedness; no chest pain; no shortness of breath; no palpitations; no edema; no calf pain with exertion Lifestyle:regular exercise; limiting/avoiding salt Medications:taking medications as directed; no side effects from medication 49 y/o HF on the telephone for chronic medical problems medications refill She had a CVA on 01/21/2018. She was increased to Fluoxetine 40mg BID at last visit .She feels better. She is taking Atorvastatin 40mg now no problems. SHe has now had multiple testing with GI and recently had Endoscopic Retrograde Cholangio pancreatogram which showed strictures. She had interventions done and liver functions are normalizing. SHe is feeling a lot better her speech has improved. SHe now ambulates without a cane. She got orthotics for her foot drop on the R and its helping. She denies any headaches CP, syncope, pre-syncope, edema, headache or SOB. SHe does feel tired occasionally. Reports lately wakes up with L back of head pressure a little headache like. She saw neurology for headaches and whether to discontinue plavik. She was started on gabapentin and feels better. Still taking Plavik c/o some bruising on her arms. She saw BILLET STRAIGHTENER back in 04/2020 for WWE .She is aware of the need to continue doing her rehab therapy exercises on a daily basis. She continues to do what she learned in rehab therapy at home. I have advised her importance of keeping DM and HTN under controll and to take her medications as directed. Her b/p at home in the 130's/80. She saw new drapery hanger DR. BENJAMIN on 10/02/2020 she was given 12 refills of amlodipine and carvedilol and told to f/u in 12 months. She is having itching and rash below the belly button. She has been applying antibacterial cream not helping. SHe is checking b/p at home and voices normal . SHe is not checking BS at home it makes her nervous. Ligia Rodríguez, ARELY-ANANYA Attn: Accounting,[address] [facility], [place], [address], [facility] 10/08/2020 11:51:58 OBGyn Episode Ob Episode Information Episode Created Date Number of Fetuses Patient Bloodtype Patient rh Status Prepregnancy Weight lbs Domestic Partner Domestic Partner Phone Father Name Legal File Clerk Status 04/03/19 1 CLOSED Fetus Data First Name Last Name Admitted to NICU Weight (g) Sex Living Outcome Pediatric Complications Fetus ID Race Codes Race Delivery Type M [id number] Jarek Calculation Initial Jarek Date Initial Exam Date Initial Exam Provider Initial Ultrasound Date Last Menstrual Period Date Ultra Sound Weeks Gestation 0 Eighteen To Twenty Week Jarek Update Ultra Sound Date Fundal Height At Umbil Quickening Date Ultra Sound Latest Weeks Gestation Final Jarek Confirmed By Final Jarek Confirmed Date Final Jarek Date Ultra Sound Latest Days Gestation 0 0 Menstrual History Last Menstrual Date Menses Monthly On Bcp Conception Prior Menses Frequency Hcg Plus Date Menarche Onset Age Delivery Information Delivery Date Delivery Type Labor Anesthesia Weeks Gestation Incision Type Labor Labor Length Hrs Delivered By Post Complications Tubal Sterilization Discharge Date Comments 8 Discharge Information Feeding Method Contraceptive Method Maternal HG B and HCT Levels Ob Episode Information Episode Created Date Number of Fetuses Patient Bloodtype Patient rh Status Prepregnancy Weight lbs Domestic Partner Domestic Partner Phone Father Name Legal File Clerk Status 04/03/19 1 CLOSED Fetus Data First Name Last Name Admitted to NICU Weight (g) Sex Living Outcome Pediatric Complications Fetus ID Race Codes Race Delivery Type F [id number] Vaginal Jarek Calculation Initial Jarek Date Initial Exam Date Initial Exam Provider Initial Ultrasound Date Last Menstrual Period Date Ultra Sound Weeks Gestation 0 Eighteen To Twenty Week Jarek Update Ultra Sound Date Fundal Height At Umbil Quickening Date Ultra Sound Latest Weeks Gestation Final Jarek Confirmed By Final Jarek Confirmed Date Final Jarek Date Ultra Sound Latest Days Gestation 0 0 Menstrual History Last Menstrual Date Menses Monthly On Bcp Conception Prior Menses Frequency Hcg Plus Date Menarche Onset Age Delivery Information Delivery Date Delivery Type Labor Anesthesia Weeks Gestation Incision Type Labor Labor Length Hrs Delivered By Post Complications Tubal Sterilization Discharge Date Comments 6 Discharge Information Feeding Method Contraceptive Method Maternal HG B and HCT Levels Ob Episode Information Episode Created Date Number of Fetuses Patient Bloodtype Patient rh Status Prepregnancy Weight lbs Domestic Partner Domestic Partner Phone Father Name Legal File Clerk Status 04/03/19 1 CLOSED Fetus Data First Name Last Name Admitted to NICU Weight (g) Sex Living Outcome Pediatric Complications Fetus ID Race Codes Race Delivery Type F [id number] Vaginal Jarek Calculation Initial Jarek Date Initial Exam Date Initial Exam Provider Initial Ultrasound Date Last Menstrual Period Date Ultra Sound Weeks Gestation 0 Eighteen To Twenty Week Jarek Update Ultra Sound Date Fundal Height At Umbil Quickening Date Ultra Sound Latest Weeks Gestation Final Jarek Confirmed By Final Jarek Confirmed Date Final Jarek Date Ultra Sound Latest Days Gestation 0 0 Menstrual History Last Menstrual Date Menses Monthly On Bcp Conception Prior Menses Frequency Hcg Plus Date Menarche Onset Age Delivery Information Delivery Date Delivery Type Labor Anesthesia Weeks Gestation Incision Type Labor Labor Length Hrs Delivered By Post Complications Tubal Sterilization Discharge Date Comments 4 Discharge Information Feeding Method Contraceptive Method Maternal HG B and HCT Levels Ob Episode Information Episode Created Date Number of Fetuses Patient Bloodtype Patient rh Status Prepregnancy Weight lbs Domestic Partner Domestic Partner Phone Father Name Legal File Clerk Status 04/03/19 1 CLOSED Fetus Data First Name Last Name Admitted to NICU Weight (g) Sex Living Outcome Pediatric Complications Fetus ID Race Codes Race Delivery Type M [id number] Vaginal Jarek Calculation Initial Jarek Date Initial Exam Date Initial Exam Provider Initial Ultrasound Date Last Menstrual Period Date Ultra Sound Weeks Gestation 0 Eighteen To Twenty Week Jarek Update Ultra Sound Date Fundal Height At Umbil Quickening Date Ultra Sound Latest Weeks Gestation Final Jarek Confirmed By Final Jarek Confirmed Date Final Jarek Date Ultra Sound Latest Days Gestation 0 0 Menstrual History Last Menstrual Date Menses Monthly On Bcp Conception Prior Menses Frequency Hcg Plus Date Menarche Onset Age Delivery Information Delivery Date Delivery Type Labor Anesthesia Weeks Gestation Incision Type Labor Labor Length Hrs Delivered By Post Complications Tubal Sterilization Discharge Date Comments 7 Discharge Information Feeding Method Contraceptive Method Maternal HG B and HCT Levels Ob Episode Information Episode Created Date Number of Fetuses Patient Bloodtype Patient rh Status Prepregnancy Weight lbs Domestic Partner Domestic Partner Phone Father Name Legal File Clerk Status 04/03/19 1 CLOSED Fetus Data First Name Last Name Admitted to NICU Weight (g) Sex Living Outcome Pediatric Complications Fetus ID Race Codes Race Delivery Type M [id number] Vaginal Jarek Calculation Initial Jarek Date Initial Exam Date Initial Exam Provider Initial Ultrasound Date Last Menstrual Period Date Ultra Sound Weeks Gestation 0 Eighteen To Twenty Week Jarek Update Ultra Sound Date Fundal Height At Umbil Quickening Date Ultra Sound Latest Weeks Gestation Final Jarek Confirmed By Final Jarek Confirmed Date Final Jarek Date Ultra Sound Latest Days Gestation 0 0 Menstrual History Last Menstrual Date Menses Monthly On Bcp Conception Prior Menses Frequency Hcg Plus Date Menarche Onset Age Delivery Information Delivery Date Delivery Type Labor Anesthesia Weeks Gestation Incision Type Labor Labor Length Hrs Delivered By Post Complications Tubal Sterilization Discharge Date Comments 0 Discharge Information Feeding Method Contraceptive Method Maternal HG B and HCT Levels
--- OUTSIDE RECORDS SUMMARY | 2024-05-23 16:13 | XMS_ITS | CONTINUITY OF CARE DOCUMENT ---
Author Name claude arce Address Unknown Organization [facility] Address [address] [place] [address] Phone [phone] Care Team Providers Care General Medical Practitioner Name Role Phone Gilles TIM, Moo Unavailable [phone] VIRAJ PINA MD Unavailable Salome Plata Unavailable Unavailable PROBLEMS Condition Status Date Provider Notes Cardiology examination active Moo Campoverde MD Diabetes, Type 2 active Moo Campoverde MD Hypertension active Moo Campoverde MD Hyperlipidemia active Moo Campoverde MD C V A / Stroke active Moo Campoverde MD (His tory of) ENCOUNTERS Date Type Provider Location Encounter Diag nosis - In-person encounter Office Visit Moo Campoverde MD [facility] - In-person encounter Office Visit Moo Campoverde MD [facility] - In-person encounter Office Visit Moo Campoverde MD [facility] - In-person encounter Office Visit Moo Campoverde MD [facility] Cardiology examinationC V A / StrokeHyperlipidemia HypertensionDiabetes , Type 2 VITAL SIGNS Date Observation Value Provider Body Mass Index (Ratio) 34.20 kg/m2 José Campoverde MD blood pressure, cuff size regular Ozzy Guzman blood pressure, diastolic 84 mm[Hg] Ozzy Guzman blood pressure, systolic 122 mm[Hg] Christopher Guzman oxygen saturation, oximetry 99 % Liliana Guzman pulse rate 96 /min Liliana Guzman weight E&M 187 [lb_av] Liliana Guzman respiratory rate E&M 12 /min Liliana Guzman height E&M 62 [in_i] Liliana Guzman Body Mass Index (Ratio) 33.76 kg/m2 José Campoverde MD blood pressure, diastolic 82 mm[Hg] everardo Ernst blood pressure, systolic 144 mm[Hg] She angie Sujata pulse rate 72 /min Diandra Ernst respiratory rate E&M 20 /min Diandra Ernst oxygen saturation, oximetry 98 % Diandra Ernst blood pressure, cuff size large everardo Ernst weight E&M 184.6 [lb_av] Diandra Ernst height E&M 62 [in_i] Diandra Ernst Body Mass Index (Ratio) 33.76 kg/m2 José Campoverde MD blood pressure, cuff size regular everardo Ernst blood pressure, diastolic 75 mm[Hg] everardo Ernst blood pressure, systolic 129 mm[Hg] She angie Ernst oxygen saturation, oximetry 98 % Diandra Ernst height E&M 62 [in_i] Diandra Ernst weight E&M 184.6 [lb_av] Diandra Ernst Body Mass Index (Ratio) 34.20 kg/m2 José Campoverde MD blood pressure, diastolic 70 mm[Hg] St mu Strange blood pressure, systolic 137 mm[Hg] Lisa Strange oxygen saturation, oximetry 96 % Stephanie Strange respiratory rate E&M 18 /min Stephanie Obregon mark pulse rate 76 /min Stephanie Strange weight E&M 187 [lb_av] Stephanie Strange height E&M 62 [in_i] Stephanie Strange ALLERGIES No Known Drug Allergies HISTORY OF MEDICATION USE Medication Status Instructions Dates Provider Indications Com ments amlodipine 10 mg tablet active Take 1 tablet by mouth once daily Wendy Gu aspirin 81 mg tablet,delayed release (DR/EC) active Take 1 tablet by mouth once a day Chuyita Chambers NP carvedilol 25 mg tablet active Take 1 tablet by mouth twice daily Wendy Mckeonhiamilcar amlodipine 10 mg tablet completed Take 1 tablet by mouth once a day - Wendy Mikegaamilcar Trulicity 3 mg/0.5 mL pen injector active INJECT 1 SYRINGE SUBCUTANEOUSLY ONCE A WEEK Chuyita Chambers NP fluoxetine 40 mg capsule completed - Liliana Guzman clonazepam 1 mg tablet completed - Liliana Guzman Carlos Aspirin 325 mg tablet completed 1 tablet by mouth once a day - Chuyita Chambers NP carvedilol 25 mg tablet completed Take 1 tablet by mouth twice a day - Wendy Mckeongaamilcar glipizide 10 mg tablet extended release 24hr completed - Liliana Guzman atorvastatin 40 mg tablet active TAKE 1 TABLET BY MOUTH EVERY DAY Chuyita Chambers NP Tradjenta 5 mg tablet active 1 tablet by mouth once a day Chuyita Chambers NP chlorthalidone 25 mg tablet active Take 1 tablet by mouth once a day Chuyita Chambers NP irbesartan 300 mg tablet active Take 1 tablet by mouth once a day Chuyita Chambers NP metformin (Glucophage XR) 500 mg tablet extended release 24 hr active 2 tablet by mouth once a day Chuyita Chambers NP amlodipine 10 mg tablet completed - Michaela Saunders clopidogrel 75 mg tablet active TAKE ONE TABLET BY MOUTH DAILY Chuyita Chambers NP carvedilol 25 mg tablet completed - Brandi Buckley SOCIAL HISTORY Date Observation Value Provider personal history of marijuana use no Chuyita Chambers COMMUNICATION CONSULTANT drug use no Chuyita Chambers COMMUNICATION CONSULTANT alcohol use no Chuyita Chambers COMMUNICATION CONSULTANT passive cigarette sm gayle exposure no Chuyita Chambers COMMUNICATION CONSULTANT chewing tobacco use Never Chuyita jackson COMMUNICATION CONSULTANT smoking status Never smoker Chuyita Hunter i COMMUNICATION CONSULTANT social history E&M Marital Statu s: Rasheed sánchez: 5 O ccupation: Disabled Smoking History: P atient has never smoked. Moo Campoverde MD social history reviewed E&M revi ewed - no changes required Moo Campoverde MD smoking status Never smoker Diandra Ernst social history E&M Marital Statu s: Rasheed sánchez: 5 O ccupation: Disabled Smoking History: P atient has never smoked. Moo Campoverde MD social history reviewed E&M revi ewed - no changes required Moo Campoverde MD smoking status Never smoker Diandra Ernst social history reviewed E&M revi ewed - no changes required Moo Campoverde MD social history E&M Marital Statu s: Rasheed sánchez: 5 O ccupation: Disabled Smoking History: P atient has never smoked. Moo Campoverde MD passive cigarette sm gayle exposure no Stephanie Strange chewing tobacco use Never Stephanie Da byron smoking status Never smoker Stephanie Strange FAMILY HISTORY Family Member Condition First Degree Blood Relative No Known Fam kelli History INSURANCE PROVIDERS Payer name Policy type / Coverage type Mosier red constitution party ID [place] [employer] Medicare [id number] HEALTHCARE AND FAMILY SERVICES Medicaid 1 [id number] ADVANCE DIRECTIVES Name Date DISCUSSED - NO DECISION MADE TREATMENT PLAN Date Name Performer [id number],SMoo MD [id number],SMoo MD [id number],S, oMo Nuno n [id number],B, Moo Nuno n [id number],S, Moo Nuno n [id number],S, Moo Nuno n [id number],S,No IVONNE Moo Nunofrancine TIM [id number],C,All tests ok. Moo Nunofrancine TIM [id number],S, Moo Nuno n [id number],S, Moo Nuno francine TIM [id number],S, Moo Nuno francine TIM [id number],S, Moo Nuno francine TIM Cardiology: R sided weakness C ontinues on Plavix/ASA/Statin Chuyita Chambers NP Cardiology: L ast a1c 5.9 (04/2023) per patient H er updated medication list for this problem includes: Metformin (glucophage Xr) 500 Mg Tablet Extended Release 24 Hr (Metformin (glucophage xr)) ..... 2 tablet by mouth once a day Trulicity 3 Mg/0.5 Ml Pen Injector (Dulaglutide) ..... Inject 1 syringe subcutaneously once a week Tradjenta 5 Mg Tablet (Linagliptin) ..... 1 tablet by mouth once a day Irbesartan 300 Mg Tablet (Irbesartan) ..... Take 1 tablet by mouth once a day Aspirin 81 Mg Tablet,delayed Release (dr/ec) (Aspirin) ..... Take 1 tablet by mouth once a day Chuyita Chambers NP Cardiology: H er updated medication list for this problem includes: Atorvastatin 40 Mg Tablet (Atorvastatin) ..... Take 1 tablet by mouth every day Chuyita Chambers NP Cardiology: B P today: 122/84 P rior BP: 144/82 (09/29/2022) Her updated medication list for this problem includes: Chlorthalidone 25 Mg Tablet (Chlorthalidone) ..... Take 1 tablet by mouth once a day Irbesartan 300 Mg Tablet (Irbesartan) ..... Take 1 tablet by mouth once a day Aspirin 81 Mg Tablet,delayed Release (dr/ec) (Aspirin) ..... Take 1 tablet by mouth once a day Carvedilol 25 Mg Tablet (Carvedilol) ..... Take 1 tablet by mouth twice daily Amlodipine 10 Mg Tablet (Amlodipine) ..... Take 1 tablet by mouth once a day Chuyita Chambers NP Cardiology Moo Campoverde MD Cardiology Moo Campoverde MD Cardiology Moo Campoverde MD Cardiology Moo Campoverde MD Cardiology Moo Campoverde MD Cardiology Moo Campoverde MD Cardiology:No IVONNE Moo Campoverde MD Cardiology:All tests ok. Moo borden MD Cardiology Moo Campoverde MD Cardiology Moo Campoverde MD Cardiology Moo Campoverde MD Cardiology Moo Campoverde MD Date Name THYROID PANEL Renal Artery Duplex Carotid Duplex Bilat eral Complete Echo HISTORY OF PROCEDURES Procedure Date Procedure Name Provider Procedure Notes S tatus EKG Moo Campoverde MD complete d EKG Moo Campoverde MD complete d
--- OUTSIDE RECORDS SUMMARY | 2024-05-23 16:13 | XMS_ITS | Referral Summary ---
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 Gender Identity Not on file Sexual Orientation [...] on file Medical Devices Explanted Type Area Boiler Assistant Operator Device Identifier Shelf Expiration Date Model / Serial / Lot [employer] 6572 Ponce Flexi-Stent 7fr 5cm Small Pigtail Flexible .035in Stent - [id number] Implanted:Qty : 1 on 05/09/2018 by Keagan Courtney MD at [facility] Explanted:Qty : 1 on 05/11/2018 at [facility] Stent N/A: Pancreas [employer] 02/14/2023 [id number] / / [id number] [employer] [place] [id number] Center Viabil 10mm 8.5fr 6cm 200cm Fully Covered Self Expand Pull - [id number] - [id number] Implanted:Qty : 1 on 05/09/2018 by Keagan Courtney MD at [facility] Explanted:Qty : 1 on 05/11/2018 at [facility] Stent N/A: Bile Duct [employer] [place] 03/10/2021 [id number] / [id number] / Insurance MEDICARE [facility] Advance Directives For more information, please contact: [phone] * Full Code (Latest Code Status on File) Date Activated Date Inactivated Comments 05/11/2018 3:03 PM 05/11/2018 7:10 PM Care Teams Leg Man Relationship Specialty Start Date End Date Ligia Rodríguez NP [address] [place] [address] PCP - General Nurse Practitioner 04/03/20
--- OUTSIDE RECORDS SUMMARY | 2024-05-23 16:13 | XMS_ITS | Data Portability ---
Author Organization [place] - [facility] [employer], Main Office Address [address] [place] [address] Assessment No assessment recorded. Plan of Treatment Reminders Order Date Submit Date Provider Last Modified By Organization Details Last Modified Time Details Appointments Follow Up 30 2024 09:00A Conchita Altman NP Not available Not available Not available Lab glycohemo globin, total, blood 2024 [email or web address] [place] [address] (Lab), [address] [place], [address], 03/29/2024 08:21:25 lipid panel, serum 2024 [email or web address] [place] [address] (Lab), [address] [place], [address], 03/29/2024 08:21:25 CMP, serum or plasma [address] [place] [address] (Lab), [address] [place], [address], 03/29/2024 08:21:25 hepatic function panel, serum 2024 [email or web address] [place] [address] (Lab), [address] [place], [address], 03/29/2024 08:21:25 vitamin D, 25-hydrox y, total, serum 2024 [email or web address] [place] [address] (Lab), [address] [place], [address], 03/29/2024 08:21:25 hepatitis C virus Ab, serum 2024 025 [email or web address] 77 [facility] (Lab), [address] [place], [address], 03/29/2024 08:21:25 iron + total iron-bind ing capacity (TIBC), serum 2024 025 [facility] (Lab), [address] [place], [address], 04/19/2024 08:21:59 ferritin, serum or plasma 2024 025 [facility] (Lab), [address] [place], [address], 04/19/2024 08:21:59 CBC w/ auto diff 2024 025 [facility] (Lab), [address] [place], [address], 04/19/2024 08:21:59 T3, free, serum or plasma 2023 024 [facility] (Lab), [address] [place], [address], 10/19/2023 12:44:57 T4, free, serum 2023 024 [facility] (Lab), [address] [place], [address], 10/19/2023 12:44:58 Referral None recorded. Procedures None recorded. Surgeries None recorded. Imaging MAMMO, screening , digital, bilateral - *Please call pt to schedule* 2023 024 [email or web address] 56 [facility] (Imaging), [address] [place], [address], 11/08/2023 15:31:43 Medication Orders Ozempic 0.25 mg or 0.5 mg (2 mg/3 mL) subcutane ous pen injector 2024 025 [facility] [address]25, [address], [place], [address], 03/22/2024 10:32:47 clonazepa m 1 mg tablet 2024 025 [facility] [address]25, [address], [place], [address], 03/22/2024 11:47:41 fluoxetin e 20 mg capsule 2024 025 [facility] [address]25, [address], [place], [address], 03/22/2024 10:24:56 chlorthal idone 25 mg tablet 2024 025 [facility] [address], [address], [place], [address], 03/22/2024 10:24:55 Ozempic 0.25 mg or 0.5 mg (2 mg/3 mL) subcutane ous pen injector 2023 024 [facility] [address], [address], [place], [address], 10/07/2023 11:14:27 ergocalci ferol (vitamin D2) 1,250 mcg (50,000 unit) capsule 2023 024 [facility] [address], [address], [place], [address], 06/28/2023 12:10:30 Trulicity 3 mg/0.5 mL subcutane ous pen injector [email or web address] [place] [address] 2425, [address], [place], [address], 03/22/2024 10:06:33 Patient TargetsNo targets recorded. Patient InstructionsNo instructions recorded. Reason for Referral None Reported. Results Created Date Observation Date Name Description Value Unit Range Abnormal Flag Note LastModifiedBy Organization Detail LastModifiedTime 10/06/19 23 10/05/2022 CBC/C OMPLE TE BLD COUNT W/DIF F white blood cells 8.5 x10'3 /uL 4.2-10 .8 Not Available [facility] (Lab) [address] [place], [address], 10/05/2022 20:35:04 10/06/19 23 10/05/2022 CBC/C OMPLE TE BLD COUNT W/DIF F red blood cells 4.07 x10'6 /uL 3.80-5 .20 Not Available [facility] (Lab) [address] [place], [address], 10/05/2022 20:35:04 10/06/19 23 10/05/2022 CBC/C OMPLE TE BLD COUNT W/DIF F hemoglobin 10.8 g/dL 12.0-1 5.6 low Not Available [facility] (Lab) [address] [place], [address], 10/05/2022 20:35:04 10/06/19 23 10/05/2022 CBC/C OMPLE TE BLD COUNT W/DIF F hematocrit 34.3 % 35.7-4 5.7 low Not Available [facility] (Lab) [address] [place], [address], 10/05/2022 20:35:04 10/06/19 23 10/05/2022 CBC/C OMPLE TE BLD COUNT W/DIF F mean red cell volume 84.3 fL 82.0-9 9.0 Not Available [facility] (Lab) [address] [place], [address], 10/05/2022 20:35:04 10/06/19 23 10/05/2022 CBC/C OMPLE TE BLD COUNT W/DIF F mean red cell hemoglobin 26.5 pg 27.0-3 3.0 low Not Available [facility] (Lab) [address] [place], [address], 10/05/2022 20:35:04 10/06/19 23 10/05/2022 CBC/C OMPLE TE BLD COUNT W/DIF F mean RBC HGB concentratio n 31.5 g/dL 31.0-3 6.0 Not Available [facility] (Lab) [address] [place], [address], 10/05/2022 20:35:04 10/06/19 23 10/05/2022 CBC/C OMPLE TE BLD COUNT W/DIF F red cell distribution width 14.5 % 11.8-1 5.5 Not Available [facility] (Lab) [address] [place], [address], 10/05/2022 20:35:04 10/06/19 23 10/05/2022 CBC/C OMPLE TE BLD COUNT W/DIF F platelets 256 x10'3 /uL 150-40 0 Not Available [facility] (Lab) [address] [place], [address], 10/05/2022 20:35:04 10/06/19 23 10/05/2022 CBC/C OMPLE TE BLD COUNT W/DIF F mean platelet volume 12.5 fL 9.0-12 .4 high Not Available [facility] (Lab) [address] [place], [address], 10/05/2022 20:35:04 10/06/1910/05/2022 CBC/C OMPLE TE BLD COUNT W/DIF F neutrophils 75.2 % 39.0-7 2.0 high Not Available [facility] (Lab) [address] [place], [address], 10/05/2022 20:35:04 10/06/19 23 10/05/2022 CBC/C OMPLE TE BLD COUNT W/DIF F lymphocytes 17.6 % 16.0-4 7.0 Not Available [facility] (Lab) [address] [place], [address], 10/05/2022 20:35:04 10/06/19 23 10/05/2022 CBC/C OMPLE TE BLD COUNT W/DIF F monocytes 4.6 % 5.0-12 .0 low Not Available [facility] (Lab) [address] [place], [address], 10/05/2022 20:35:04 10/06/19 23 10/05/2022 CBC/C OMPLE TE BLD COUNT W/DIF F eosinophils 1.7 % 1.0-7. 0 Not Available [facility] (Lab) [address] [place], [address], 10/05/2022 20:35:04 10/06/19 23 10/05/2022 CBC/C OMPLE TE BLD COUNT W/DIF F basophils 0.5 % 0.0-2. 0 Not Available [facility] (Lab) [address] [place], [address], 10/05/2022 20:35:04 10/06/19 23 10/05/2022 CBC/C OMPLE TE BLD COUNT W/DIF F immature granulocytes 0.4 % 0.00-0 .50 Not Available [facility] (Lab) [address] [place], [address], 10/05/2022 20:35:04 10/06/19 23 10/05/2022 CBC/C OMPLE TE BLD COUNT W/DIF F neutrophils, absolute count 6.38 x10'3 /uL 1.5-8. 0 Not Available [facility] (Lab) [address] [place], [address], 10/05/2022 20:35:04 08/21/20 23 10/05/2022 CBC/C OMPLE TE BLD COUNT W/DIF F lymphocytes, absolute count 1.49 x10'3 /uL 1.07-3 .43 Not Available [facility] (Lab) [address] [place], [address], 10/05/2022 20:35:04 10/06/19 23 10/05/2022 CBC/C OMPLE TE BLD COUNT W/DIF F monocytes, absolute count 0.39 x10'3 /uL 0.29-0 .99 Not Available [facility] (Lab) [address] [place], [address], 10/05/2022 20:35:04 10/06/19 23 10/05/2022 CBC/C OMPLE TE BLD COUNT W/DIF F eosinophils, absolute count 0.14 x10'3 /uL 0.02-0 .53 Not Available [facility] (Lab) [address] [place], [address], 10/05/2022 20:35:04 10/06/19 23 10/05/2022 CBC/C OMPLE TE BLD COUNT W/DIF F basophils, absolute count 0.04 x10'3 /uL 0.01-0 .08 Not Available [facility] (Lab) [address] [place], [address], 10/05/2022 20:35:04 10/06/19 23 10/05/2022 CBC/C OMPLE TE BLD COUNT W/DIF F immature granulocytes ,absolute 0.03 x10'3 /uL 0.00-0 .05 Not Available [facility] (Lab) [address] [place], [address], 10/05/2022 20:35:04 10/06/19 23 10/05/2022 CBC/C OMPLE TE BLD COUNT W/DIF F nucleated red blood cells 0.0 % -0 Not Available [facility] (Lab) [address] [place], [address], 10/05/2022 20:35:04 10/06/19 23 10/05/2022 CBC/C OMPLE TE BLD COUNT W/DIF F NRBC# 0.00 x10'3 /uL Not Available [facility] (Lab) [address] [place], [address], 10/05/2022 20:35:04 10/06/19 23 10/05/2022 IRON/ TIBC PANEL total iron binding capacity 397 mcg/d L 265-47 5 Not Available [facility] (Lab) [address] [place], [address], 10/05/2022 20:55:44 10/06/19 23 10/05/2022 IRON/ TIBC PANEL % transferrin saturation 12 % 20-55 low Not Available [facility] (Lab) [address] [place], [address], 10/05/2022 20:55:44 10/06/19 23 10/05/2022 IRON/ TIBC PANEL unsaturated iron bind capacity 349 mcg/d L 126-38 2 Not Available [facility] (Lab) [address] [place], [address], 10/05/2022 20:55:44 10/06/19 23 10/05/2022 IRON/ TIBC PANEL iron 48 mcg/d L 42-175 Not Available [facility] (Lab) [address] [place], [address], 10/05/2022 20:55:44 10/06/19 23 10/05/2022 BASIC METAB OLIC PANEL sodium 135 mmol/ L 137-14 5 low Not Available [facility] (Lab) [address] [place], [address], 10/05/2022 20:53:26 10/06/19 23 10/05/2022 BASIC METAB OLIC PANEL potassium 3.6 mmol/ L 3.5-5. 1 Not Available [facility] (Lab) [address] [place], [address], 10/05/2022 20:53:26 10/06/19 23 10/05/2022 BASIC METAB OLIC PANEL chloride 100 mmol/ L 98-107 Not Available [facility] (Lab) [address] [place], [address], 10/05/2022 20:53:26 10/06/19 23 10/05/2022 BASIC METAB OLIC PANEL carbon dioxide 25 mmol/ L 22-30 Not Available [facility] (Lab) [address] [place], [address], 10/05/2022 20:53:26 10/06/19 23 10/05/2022 BASIC METAB OLIC PANEL anion gap 13.6 mmol/ L 14-22 low Not Available [facility] (Lab) [address] [place], [address], 10/05/2022 20:53:26 10/06/19 23 10/05/2022 BASIC METAB OLIC PANEL glucose 102 mg/dL 70-99 high Not Available [facility] (Lab) [address] [place], [address], 10/05/2022 20:53:26 10/06/19 23 10/05/2022 BASIC METAB OLIC PANEL BUN 16 mg/dL 8-19 Not Available [facility] (Lab) [address] [place], [address], 10/05/2022 20:53:26 10/06/19 23 10/05/2022 BASIC METAB OLIC PANEL creatinine 0.66 mg/dL 0.66-1 .25 Not Available [facility] (Lab) [address] [place], [address], 10/05/2022 20:53:26 08/2110/05/2022 BASIC METAB OLIC PANEL GFR >60 Refer ence Range : [place] ge GFR Healt hy Adult : >60 mL/mi n/1.7 3 m2 Chron ic Kidne y Disea se: 15-60 mL/mi n/1.7 3 m2 Kidne y Failu re: <15/m L/min /1.73 m2 www.n iddk. nih.g ov The MDRD study equat ion has not been valid ated in child rocky <18 years of age; pregn ant women ; the elder ly >85 years of age; or in some racia l or ethni c subgr oups, such as Hispa nics. Outsi de the valid ated rafael eters , estim ated GFR is less accur ate, requi ring clini letty judgm ent on a case- by-ca se basis . Clini letty inter preta tion for other races and ages must be made by the clini geoffrey. The MDRD study equat ion has not been valid ated for the evalu ation of serum creat inine relat ed to nutri orin l statu s or medic ation usage . For perso ns <18 years of age, a pedia tric GFR calcu lator is avail able on the [facility] websi te: https ://kerri burns.brandon an/pratima isaacal s/kdo qi/gf r_cal culat or Not Available [facility] (Lab) [address] [place], [address], 10/05/2022 20:53:26 10/06/1910/05/2022 BASIC METAB OLIC PANEL calcium 9.2 mg/dL 8.4-10 .2 Not Available [facility] (Lab) [address] [place], [address], 10/05/2022 20:53:26 10/06/19 23 10/05/2022 JEROME TIN ferritin 12 NG/mL 11.1-2 64 Not Available [facility] (Lab) [address] [place], [address], 10/05/2022 21:19:27 10/06/19 23 10/05/2022 HEMOG LOBIN A1C HA1C 6.2 % 4.0-6. 0 high Diabe kian Kingse emanuel Crite gonzales: <5.7% Consi stent with absen ce of diabe kian 5.7-6 .4% Consi stent with incre ased risk for diabe kain (pred iabet es) >OR=6 .5% Consi stent with diabe kian REFER ENCE: Diabe kian Care 2016, 39(Ibarhim ppl.1 ):s13 -s22 Not Available Not Available 10/05/2022 22:17:11 04/08/19 24 04/08/2023 CBC/C OMPLE TE BLD COUNT W/DIF F white blood cells 10.5 x10'3 /uL 4.2-10 .8 Not Available [facility] (Lab) [address] [place], [address], 04/08/2023 19:47:08 04/08/19 24 04/08/2023 CBC/C OMPLE TE BLD COUNT W/DIF F red blood cells 4.54 x10'6 /uL 3.80-5 .20 Not Available [facility] (Lab) [address] [place], [address], 04/08/2023 19:47:08 04/08/19 24 04/08/2023 CBC/C OMPLE TE BLD COUNT W/DIF F hemoglobin 12.1 g/dL 12.0-1 5.6 Not Available [facility] (Lab) [address] [place], [address], 04/08/2023 19:47:08 04/08/19 24 04/08/2023 CBC/C OMPLE TE BLD COUNT W/DIF F hematocrit 37.7 % 35.7-4 5.7 Not Available [facility] (Lab) [address] [place], [address], 04/08/2023 19:47:08 04/08/19 24 04/08/2023 CBC/C OMPLE TE BLD COUNT W/DIF F mean red cell volume 83.0 fL 82.0-9 9.0 Not Available [facility] (Lab) [address] [place], [address], 04/08/2023 19:47:08 04/08/19 24 04/08/2023 CBC/C OMPLE TE BLD COUNT W/DIF F mean red cell hemoglobin 26.7 pg 27.0-3 3.0 low Not Available [facility] (Lab) [address] [place], [address], 04/08/2023 19:47:08 04/08/19 24 04/08/2023 CBC/C OMPLE TE BLD COUNT W/DIF F mean RBC HGB concentratio n 32.1 g/dL 31.0-3 6.0 Not Available [facility] (Lab) [address] [place], [address], 04/08/2023 19:47:08 04/08/19 24 04/08/2023 CBC/C OMPLE TE BLD COUNT W/DIF F red cell distribution width 14.7 % 11.8-1 5.5 Not Available [facility] (Lab) [address] [place], [address], 04/08/2023 19:47:08 04/08/19 24 04/08/2023 CBC/C OMPLE TE BLD COUNT W/DIF F platelets 261 x10'3 /uL 150-40 0 Not Available [facility] (Lab) [address] [place], [address], 04/08/2023 19:47:08 04/08/19 24 04/08/2023 CBC/C OMPLE TE BLD COUNT W/DIF F mean platelet volume 13.0 fL 9.0-12 .4 high Not Available [facility] (Lab) [address] [place], [address], 04/08/2023 19:47:08 02/22/20 24 04/08/2023 CBC/C OMPLE TE BLD COUNT W/DIF F neutrophils 76.8 % 39.0-7 2.0 high Not Available [facility] (Lab) [address] [place], [address], 04/08/2023 19:47:08 04/08/19 24 04/08/2023 CBC/C OMPLE TE BLD COUNT W/DIF F lymphocytes 14.7 % 16.0-4 7.0 low Not Available [facility] (Lab) [address] [place], [address], 04/08/2023 19:47:08 04/08/19 24 04/08/2023 CBC/C OMPLE TE BLD COUNT W/DIF F monocytes 5.6 % 5.0-12 .0 Not Available [facility] (Lab) [address] [place], [address], 04/08/2023 19:47:08 04/08/19 24 04/08/2023 CBC/C OMPLE TE BLD COUNT W/DIF F eosinophils 2.2 % 1.0-7. 0 Not Available [facility] (Lab) [address] [place], [address], 04/08/2023 19:47:08 04/08/19 24 04/08/2023 CBC/C OMPLE TE BLD COUNT W/DIF F basophils 0.4 % 0.0-2. 0 Not Available [facility] (Lab) [address] [place], [address], 04/08/2023 19:47:08 04/08/19 24 04/08/2023 CBC/C OMPLE TE BLD COUNT W/DIF F immature granulocytes 0.3 % 0.00-0 .50 Not Available [facility] (Lab) [address] [place], [address], 04/08/2023 19:47:08 04/08/19 24 04/08/2023 CBC/C OMPLE TE BLD COUNT W/DIF F neutrophils, absolute count 8.02 x10'3 /uL 1.5-8. 0 high Not Available [facility] (Lab) [address] [place], [address], 04/08/2023 19:47:08 04/08/19 24 04/08/2023 CBC/C OMPLE TE BLD COUNT W/DIF F lymphocytes, absolute count 1.54 x10'3 /uL 1.07-3 .43 Not Available [facility] (Lab) [address] [place], [address], 04/08/2023 19:47:08 04/08/19 24 04/08/2023 CBC/C OMPLE TE BLD COUNT W/DIF F monocytes, absolute count 0.59 x10'3 /uL 0.29-0 .99 Not Available [facility] (Lab) [address] [place], [address], 04/08/2023 19:47:08 04/08/19 24 04/08/2023 CBC/C OMPLE TE BLD COUNT W/DIF F eosinophils, absolute count 0.23 x10'3 /uL 0.02-0 .53 Not Available [facility] (Lab) [address] [place], [address], 04/08/2023 19:47:08 04/08/19 24 04/08/2023 CBC/C OMPLE TE BLD COUNT W/DIF F basophils, absolute count 0.04 x10'3 /uL 0.01-0 .08 Not Available [facility] (Lab) [address] [place], [address], 04/08/2023 19:47:08 04/08/19 24 04/08/2023 CBC/C OMPLE TE BLD COUNT W/DIF F immature granulocytes ,absolute 0.03 x10'3 /uL 0.00-0 .05 Not Available [facility] (Lab) [address] [place], [address], 04/08/2023 19:47:08 04/08/19 24 04/08/2023 CBC/C OMPLE TE BLD COUNT W/DIF F nucleated red blood cells 0.0 % -0 Not Available [facility] (Lab) [address] [facility], [address], 04/08/2023 19:47:08 04/08/19 24 04/08/2023 CBC/C OMPLE TE BLD COUNT W/DIF F NRBC# 0.00 x10'3 /uL Not Available [facility] (Lab) [address] [place], [address], 04/08/2023 19:47:08 04/08/19 24 04/08/2023 IRON/ TIBC PANEL total iron binding capacity 413 mcg/d L 265-47 5 Not Available [facility] (Lab) [address] [place], [address], 04/08/2023 20:17:05 04/08/19 24 04/08/2023 IRON/ TIBC PANEL % transferrin saturation 13 % 20-55 low Not Available [facility] (Lab) [address] [place], [address], 04/08/2023 20:17:05 04/08/19 24 04/08/2023 IRON/ TIBC PANEL unsaturated iron bind capacity 359 mcg/d L 126-38 2 Not Available [facility] (Lab) [address] [place], [address], 04/08/2023 20:17:05 04/08/19 24 04/08/2023 IRON/ TIBC PANEL iron 54 mcg/d L 42-175 Not Available [facility] (Lab) [address] [place], [address], 04/08/2023 20:17:05 04/08/19 24 04/08/2023 BASIC METAB OLIC PANEL sodium 138 mmol/ L 137-14 5 Not Available [facility] (Lab) [address] [place], [address], 04/08/2023 20:16:07 04/08/19 24 04/08/2023 BASIC METAB OLIC PANEL potassium 3.8 mmol/ L 3.5-5. 1 Not Available [facility] (Lab) [address] [place], [address], 04/08/2023 20:16:07 04/08/19 24 04/08/2023 BASIC METAB OLIC PANEL chloride 101 mmol/ L 98-107 Not Available [facility] (Lab) [address] [place], [address], 04/08/2023 20:16:07 04/08/19 24 04/08/2023 BASIC METAB OLIC PANEL carbon dioxide 26 mmol/ L 22-30 Not Available [facility] (Lab) [address] [place], [address], 04/08/2023 20:16:07 04/08/19 24 04/08/2023 BASIC METAB OLIC PANEL anion gap 14.8 mmol/ L 14-22 Not Available [facility] (Lab) [address] [place], [address], 04/08/2023 20:16:07 04/08/19 24 04/08/2023 BASIC METAB OLIC PANEL glucose 128 mg/dL 70-99 high Not Available [facility] (Lab) [address] [place], [address], 04/08/2023 20:16:07 04/08/19 24 04/08/2023 BASIC METAB OLIC PANEL BUN 16 mg/dL 8-19 Not Available [facility] (Lab) [address] [place], [address], 04/08/2023 20:16:07 04/08/19 24 04/08/2023 BASIC METAB OLIC PANEL creatinine 0.68 mg/dL 0.66-1 .25 Not Available [facility] (Lab) [address] [place], [address], 04/08/2023 20:16:07 04/08/19 24 04/08/2023 BASIC METAB OLIC PANEL GFR >60 Refer ence Range : [place] ge GFR Healt hy Adult : >60 mL/mi n/1.7 3 m2 Chron ic Kidne y Disea se: 15-60 mL/mi n/1.7 3 m2 Kidne y Failu re: <15/m L/min /1.73 m2 www.n iddk. nih.g ov The MDRD study equat ion has not been valid ated in child rocky <18 years of age; pregn ant women ; the elder ly >85 years of age; or in some racia l or ethni c subgr oups, such as Hisak nics. Outsi de the valid ated rafael eters , estim ated GFR is less accur ate, requi ring clini letty judgm ent on a case- by-ca se basis . Clini letty inter preta tion for other races and ages must be made by the clini geoffrey. The MDRD study equat ion has not been valid ated for the evalu ation of serum creat inine relat ed to nutri orin l statu s or medic ation usage . For perso ns <18 years of age, a pedia tric GFR calcu lator is avail able on the F websi te: https ://ww w.kid grant.o rg/pr yakovess ional s/kdo qi/gf r_cal culat or Not Available [facility] (Lab) [address] [place], [address], 04/08/2023 20:16:07 04/08/19 24 04/08/2023 BASIC METAB OLIC PANEL calcium 9.9 mg/dL 8.4-10 .2 Not Available [facility] (Lab) [address] [place], [address], 04/08/2023 20:16:07 04/08/19 24 04/08/2023 HEPAT IC/LI NASIR PANEL alkaline phosphatase 112 U/L 38-126 Not Available [facility] (Lab) [address] [place], [address], 04/08/2023 20:16:19 04/08/19 24 04/08/2023 HEPAT IC/LI NASIR PANEL alanine aminotransfe rase 23 U/L 0-35 Not Available [facility] (Lab) [address] [place], [address], 04/08/2023 20:16:19 04/08/19 24 04/08/2023 HEPAT IC/LI NASIR PANEL aspartate aminotransfe rase 25 U/L 15-37 Not Available [facility] (Lab) [address] [place], [address], 04/08/2023 20:16:19 04/08/19 24 04/08/2023 HEPAT IC/LI NASIR PANEL bilirubin, total 0.40 mg/dL 0.20-1 .30 Not Available [facility] (Lab) [address] [place], [address], 04/08/2023 20:16:19 04/08/19 24 04/08/2023 HEPAT IC/LI NASIR PANEL bilirubin, conjugated (direct) 0.00 mg/dL 0.00-0 .30 Not Available [facility] (Lab) [address] [place], [address], 04/08/2023 20:16:19 04/08/19 24 04/08/2023 HEPAT IC/LI NASIR PANEL biliurubin,u ncong. (indirect) 0.10 mg/dL 0.00-1 .1 Not Available [facility] (Lab) [address] [place], [address], 04/08/2023 20:16:19 04/08/19 24 04/08/2023 HEPAT IC/LI NASIR PANEL total protein 7.7 g/dL 6.3-8. 2 Not Available [facility] (Lab) [address] [place], [address], 04/08/2023 20:16:19 04/08/19 24 04/08/2023 HEPAT IC/LI NASIR PANEL albumin 4.5 g/dL 3.4-5. 0 Not Available [facility] (Lab) [address] [place], [address], 04/08/2023 20:16:19 04/08/19 24 04/08/2023 HEPAT IC/LI NASIR PANEL globulin 3.2 g/dL 2.6-4. 2 Not Available [facility] (Lab) [address] [place], [address], 04/08/2023 20:16:19 04/08/19 24 04/08/2023 HEPAT IC/LI NASIR PANEL A/G ratio 1.4 ratio 1.0-2. 0 Not Available [facility] (Lab) [address] [place], [address], 04/08/2023 20:16:19 04/08/19 24 04/08/2023 LIPID PANEL cholesterol 118 mg/dL 140-19 9 low NIH TANIA NSUS RECOM MENDA TION FOR LILIA STERO L: ADULT CHILD LOW RISK: <200 <170 BORDE RLINE : <200- 239 ----- HIGH RISK: >240 >200 Not Available [facility] (Lab) [address] [place], [address], 04/08/2023 20:16:21 04/08/1904/08/2023 LIPID PANEL triglyceride s 112 mg/dL 0-150 NIH TANIA NSUS REPOR T RECOM MENDA TION FOR TRIGL YCERI LEO: ADULT CHILD LOW RISK: <150 ----- BODER LINE: 150-1 99 ----- HIGH RISK: >200 ----- Not Available [facility] (Lab) [address] [place], [address], 04/08/2023 20:16:21 04/08/19 24 04/08/2023 LIPID PANEL HDL cholesterol 47 mg/dL 40- Not Available [facility] (Lab) [address] [place], [address], 04/08/2023 20:16:21 04/08/19 24 04/08/2023 LIPID PANEL LDL cholesterol, calculated 49 mg/dL 0-130 NIH TANIA NSUS REPOR T RECOM MENDA TIONS FOR LDL: ADULT CHILD LOW RISK <130 <110 (OPTI MAL LDL) <100 ----- BORDE RLINE : 130-1 59 ----- HIGH RISK: >160 >130 A TRIGL YCERI DE RESUL T >400 INVAL IDATE S THE CALCU LATIO N FOR LDL FRACT IONAT ION - THE LDL RESUL T WILL NOT BE REPOR ALEISHA. Not Available [facility] (Lab) [address] [place], [address], 04/08/2023 20:16:21 04/08/19 24 04/08/2023 JEROME TIN ferritin 8 NG/mL 11.1-2 64 low Not Available [facility] (Lab) [address] [place], [address], 04/08/2023 20:24:38 04/08/19 24 04/08/2023 VITAM IN D 25-HY DROXY vd25oh 16.2 NG/mL 30-100 low Vitam in D Statu s: Defic ient: <20 ng/mL Insuf ficie nt: 20-29 ng/mL Suffi cient : 30-10 0 ng/mL Not Available [facility] (Lab) [address] [place], [address], 04/08/2023 20:27:31 04/08/19 24 04/08/2023 HEMOG LOBIN A1C HA1C 6.8 % 4.0-6. 0 high Diabe kian Scree emanuel Crite gonzales: <5.7% Consi stent with absen ce of diabe kian 5.7-6 .4% Consi stent with incre ased risk for diabe kian (pred iabet es) >OR=6 .5% Consi stent with diabe kian REFER ENCE: Diabe kian Care 2016, 39(Ibrahim ppl.1 ):s13 -s22 Not Available [facility] ([facility]) [address] [place], [address], 04/08/2023 21:58:12 Result Notes None recorded. 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 Not Available [facility] 3 08:46:48 Increase d blood pressure 70670412 Completed Not Available [facility] 3 08:46:48 Low back pain 401787814 Active Not Available [facility] 3 08:46:48 Dysphagi a 22704957 Active 2020 since CVA Not Available [facility] 3 08:46:49 Anxiety 37407125 Active 2020 Not Available [facility] 3 08:46:49 Hyperlip idemia 38717920 Active 2020 Not Available [facility] 08:46:49 [facility] hyperten murphy 51150426 Active 2020 Not Available [facility] 3 08:46:49 Allergic rhinitis 51828469 Active Not Available [facility] 3 08:46:49 Diabetes mellitus 98688683 Active 2020 Not Available [facility] 3 08:46:49 Iron deficien cy anemia 68625240 Active 2022 Radha Jules MD [address] [facility], [facility] [address], [place], [address] , [facility] [employer] [facility] 3 12:13:28 Type 2 diabetes mellitus 15150866 Active 2022 Radha Jules MD [address], [facility] [address], [place], [address] , [employer] 3 12:14:21 Weight gain 7133796 Active 2022 Radha Jules MD [address], [facility] [address], [place], [address] , [employer] 3 12:16:18 Vitamin D deficien cy 02882499 Active 2023 Radha Jules MD [address] [facility], [facility] [address], [place], [address] , [employer] 4 11:00:07 Cough 94193586 Active 2023 LINDA Joyce [address] [facility] [facility], [place] [address] [address], [place], [address] , [employer] 4 11:58:58 Loss of hair 267910835 Active 2023 LINDA Joyce [address] [facility], [address] [address], [place], [address] , [employer] 4 11:59:59 Mixed anxiety and depressi ve disorder 399531823 Active 2024 LINDA Joyce [address] [facility], [address] [address], [place], [address] , [employer] 5 10:18:14 Problem Notes None recorded. Procedures Surgical History Date Name Laterality Status Provider Name and Address Organization Details Recorded Time completed Not Available [facility] 0 04/15/2022 08:43:37 insertion of biliary stent completed Not Available [facility] 04/15/2022 08:43:37 Cholecystectomy completed Not Available [employer] [facility] 04/15/2022 08:43:37 Imaging Results None recorded. Procedure Notes None recorded. Medical Equipment None Reported. Allergies No known drug allergies Medications Name Sig Start Date Stop Date Status Note LastModified by Organization Details LastModified Time fluoxetine 40 mg capsule TAKE 1 CAPSULE BY MOUTH TWICE DAILY active Not Available Not Available No t Available atorvastati n 40 mg tablet TAKE 1 TABLET BY MOUTH ONCE DAILY active Not Available Not Available No t Available metformin 500 mg tablet TK 1 T PO BID WC 04/23 completed Not Available Not Available Not Available carvedilol 25 mg tablet TAKE 1 TABLET BY MOUTH TWICE DAILY active Not Available Not Available No t Available clindamycin HCl 300 mg capsule TAKE 1 CAPSULE BY MOUTH THREE TIMES DAILY. STOP IF DIARRHEA OCCURS 12/16 completed Not Available Not Available Not Available azithromyci n 250 mg tablet 04/28 completed Not Available Not Available Not Available fluconazole 150 mg tablet TAKE 1 TABLET BY MOUTH WEEKLY DIRECTED 12/16 completed Not Available Not Available Not Available glipizide ER 10 mg tablet, extended release 24 hr TAKE 1 TABLET BY MOUTH IN THE MORNING WITH FOOD 10/06 completed Not Available Not Available Not Available metoprolol succinate ER 200 mg tablet,exte nded release 24 hr TAKE 1 TABLET BY MOUTH ONCE DAILY 12/16 completed Not Available Not Available Not Available prednisone 20 mg tablet TAKE 3 TABLETS BY MOUTH DAILY NEEDED FOR ITCHING 12/16 completed Not Available Not Available Not Available metoprolol succinate ER 100 mg tablet,exte nded release 24 hr TK ONE T PO QD. 12/16 completed Not Available Not Available Not Available clonazepam 1 mg tablet TAKE 1 TABLET BY MOUTH DAILY NEEDED active Not Available Not Available No t Available hydroxyzine HCl 50 mg tablet 12/16 completed Not Available Not Available Not Available acetaminoph en 300 mg-codeine 30 mg tablet TAKE 1 TABLET BY MOUTH EVERY 4 TO 6 HOURS NEEDED FOR PAIN AFTER SURGERY 04/23 completed Not Available Not Available Not Available clopidogrel 75 mg tablet Take 1 tablet by mouth once daily active Not Available Not Available No t Available chlorthalid one 25 mg tablet Take 1 tablet by mouth once daily active Not Available Not Available No t Available aspirin 81 mg tablet,aimee yed release TAKE 1 TABLET BY MOUTH ONCE DAILY active Not Available Not Available No t Available triamcinolo ne acetonide 0.1 % topical cream APPLY A THIN LAYER TO THE AFFECTED AREA(S) BY TOPICAL ROUTE 2 TIMES PER DAY 03/22 completed Not Available Not Available Not Available amoxicillin 875 mg tablet TAKE 1 TABLET BY MOUTH EVERY 12 HOURS FOR 10 DAYS 04/23 completed Not Available Not Available Not Available famotidine 20 mg tablet TAKE 1 TABLET BY MOUTH TWICE DAILY 12/16 completed Not Available Not Available Not Available prednisolon e acetate 1 % eye drops,suspe nsion INSTILL 1 DROP THREE TIMES DAILY IN BOTH EYES FOR 1 WEEK THEN 1 DROP 2 TIMES DAILY FOR 1 WEEK THEN 1 DROP ONCE DAILY FOR 1 WEEK. 04/23 completed Not Available Not Available Not Available betamethaso ne valerate 0.1 % topical cream APPLY CREAM TOPICALLY TO AFFECTED AREA OF SKIN TWICE DAILY IN THE MORNING AND EVENING FOR 2 WEEKS 03/22 completed Not Available Not Available Not Available amlodipine 10 mg tablet TAKE 1 TABLET BY MOUTH ONCE DAILY active Not Available Not Available No t Available neomycin-po lymyxin-dex ameth 3.5 mg/mL-10,00 0 unit/mL-0.1 % eye drops INT ONE DROP AEY QID FOR 3 DAYS active Not Available Not Available No t Available triamcinolo ne acetonide 0.1 % topical ointment 03/22 completed Not Available Not Available Not Available buspirone 10 mg tablet Take 1 tablet 3 times a day by oral route as needed. 03/22 completed Not Available Not Available Not Available clotrimazol e-betametha sone 1 %-0.05 % topical cream APPLY TO THE AFFECTED AND SURROUNDI NG AREAS OF SKIN BY TOPICAL ROUTE 2 TIMES PER DAY IN THE MORNING AND EVENING FOR 2 WEEKS 03/22 completed Not Available Not Available Not Available candesartan 16 mg tablet 12/16 completed Not Available Not Available Not Available fluoxetine 10 mg capsule 04/26 completed Not Available Not Available Not Available betamethaso ne dipropionat e 0.05 % topical cream 03/22 completed Not Available Not Available Not Available gabapentin 300 mg capsule TAKE 1 CAPSULE BY MOUTH IN THE MORNING AND 1 AT NOON AND 2 IN THE EVENING 03/22 completed Not Available Not Available Not Available hydrochloro thiazide 25 mg tablet TAKE 1 TABLET BY MOUTH ONCE DAILY 12/16 completed Not Available Not Available Not Available ergocalcife rol (vitamin D2) 1,250 mcg (50,000 unit) capsule TAKE 1 CAPSULE BY MOUTH ONCE A WEEK active Not Available Not Available No t Available albuterol sulfate HFA 90 mcg/actuati on aerosol inhaler Inhale 2 puffs every 4 hours by inhalatio n route. 03/22 completed Not Available Not Available Not Available fluoxetine 20 mg capsule Take 3 capsules every day by oral route at bedtime. active Not Available Not Available No t Available metformin ER 500 mg tablet,exte nded release 24 hr TAKE 2 TABLETS BY MOUTH ONCE DAILY active Not Available Not Available No t Available clotrimazol e 1 % topical cream APPLY CREAM TOPICALLY TO AFFECTED AREA OF SKIN TWICE DAILY IN THE MORNING AND EVENING FOR TWO WEEKS 03/22 completed Not Available Not Available Not Available candesartan 8 mg tablet 04/26 completed Not Available Not Available Not Available doxycycline hyclate 100 mg tablet Take 1 tablet twice a day by oral route for 14 days. active Not Available Not Available No t Available irbesartan 300 mg tablet TAKE 1 TABLET BY MOUTH ONCE DAILY active Not Available Not Available No t Available diazepam 5 mg tablet TAKE 1 TABLET BY MOUTH IMMEDIATE LY PRIOR TO SURGERY DIRECTED 12/16 completed Not Available Not Available Not Available valsartan 160 mg tablet 04/26 completed Not Available Not Available Not Available carvedilol 12/16 completed Not Available Not Available Not Available OneTouch Ultra2 Meter kit U UTD TO TEST BLOOD SUGAR active Not Available Not Available No t Available metformin ER 500 mg 24 hr tablet,exte nded release (gastric retention) 2 po qday 04/28 completed Not Available Not Available Not Available FeroSul 325 mg (65 mg iron) tablet Take 1 tablet by mouth once daily 2024 active Not Available Not Available Not Avai lable Tradjenta 5 mg tablet Take 1 tablet by mouth once daily 03/22 completed Not Available Not Available Not Available OneTouch Verio test strips USE 1 STRIP TO CHECK GLUCOSE ONCE DAILY active Not Available Not Available No t Available Trulicity 1.5 mg/0.5 mL subcutaneou s pen injector INJECT 1/2 (ONE-HALF ) ML SUBCUTANE OUSLY ONCE A WEEK 03/22 completed Not Available Not Available Not Available Trulicity 0.75 mg/0.5 mL subcutaneou s pen injector INJECT 1/2 (ONE-HALF ) ML SUBCUTANE OUSLY ONCE A WEEK 07/07 completed Not Available Not Available Not Available OneTouch Ultra Blue Test Strip U UTD TO TEST BLOOD SUGAR active Not Available Not Available No t Available OneTouch Delica Plus Lancet 33 gauge USE 1 LANCET TO CHECK GLUCOSE ONCE DAILY active Not Available Not Available No t Available OneTouch Verio Reflect Meter USE TO TEST ONCE PER DAY active Not Available Not Available No t Available Trulicity 3 mg/0.5 mL subcutaneou s pen injector INJECT 1/2 (ONE-HALF ) ML SUBCUTANE OUSLY ONCE A WEEK 03/22 completed Not Available Not Available Not Available Ozempic 0.25 mg or 0.5 mg (2 mg/3 mL) subcutaneou s pen injector Inject 0.5 mg every week by subcutane ous route. active Not Available Not Available No t Available Vitals Date Recorded Body height Body mass index (BMI) Body weight Body temperature Heart rate Oxygen saturation Oxygen saturation in Arterial blood by Pulse oximetry Systolic blood pressure Diastolic blood pressure Provider Name and Address Organization Details Last Updated DateTime 3 157.48 cm 33.5 kg/m2 56928.4 g 98.1 [degF] 82 /min 96 % 96 % 120 mm[Hg] 74 mm[Hg] Mckay Motta RN [facility] [employer] 3 10:45:41 Date Recorded Body height Provider Name an d Address Organization Details Last Updated DateTime 04/08/2023 157.48 cm Char Bansal RN [facility] [employer] 04/08/2023 11:04:16 Date Recorded Body height Body mass index (BMI) Body weight Body temperature Oxygen saturation Oxygen saturation in Arterial blood by Pulse oximetry Heart rate Systolic blood pressure Diastolic blood pressure Provider Name and Address Organization Details Last Updated DateTime 4 157.48 cm 34 kg/m2 31908.1 8 g 98.2 [degF] 94 % 94 % 88 /min 120 mm[Hg] 84 mm[Hg] Mckay Motta RN [facility] [employer] 4 11:56:56 Date Recorded Body height Body mass index (BMI) Body weight Body temperature Oxygen saturation Oxygen saturation in Arterial blood by Pulse oximetry Heart rate Systolic blood pressure Diastolic blood pressure Provider Name and Address Organization Details Last Updated DateTime 4 157.48 cm 34.2 kg/m2 32687.7 7 g 98 [degF] 98 % 98 % 78 /min 130 mm[Hg] 80 mm[Hg] Mckay Motta RN [facility] [employer] 4 11:01:12 Date Recorded Body height Body mass index (BMI) Body weight Body temperature Heart rate Oxygen saturation Oxygen saturation in Arterial blood by Pulse oximetry Systolic blood pressure Diastolic blood pressure Provider Name and Address Organization Details Last Updated DateTime 5 157.48 cm 33.3 kg/m2 32669.8 1 g 97.2 [degF] 80 /min 98 % 98 % 148 mm[Hg] 72 mm[Hg] TERESA Mahan - [facility] [employer] 5 10:04:16 Social History Question Answer Notes LastModified by [employer] Details LastModified Time Tobacco Smoking Status Never Smoker Not Available [facility] 04/15/2022 08:43:25 In The 14 Days Before Symptom Onset, Have You Had Close Contact With A Laboratory-confirm ed COVID-19 While That Case Was Ill? No [id number] Information not available 04/15/2022 In The 14 Days Before Symptom Onset, Have You Had Close Contact With A Person Who Is Under Investigation For COVID-19 While That Person Was Ill? No [id number] Information not available 04/15/2022 What Type Of Diet Are You Following? REGULAR [id number] Information not available 04/15/2022 Do You Have Any Dietary Restrictions? No [id number] Information not available 04/15/2022 Sex: Unknown Functional Status Question Answer Note LastModified by [employer] Details LastModified Time What is your exercise level? None [id number] Information not available 04/15/2022 Mental Status None recorded. Family History Relationship Description Onset Age of this Age Resolved Age Notes LastModified by Organization Details LastModified Time Mother Coronary arterioscler osis [id number] Not available 04/15/2022 08:43:37 Medical History No medical history recorded. Gynecological History Statement/Question Response Abnormal Pap N Sexually Active? Y Weight gain Y Dislike of Light during Menstrual Headac he N Menses Monthly Y STIs/STDs N Current Control Method None Breast Problems no Discharge no Obstetrics History GPAL:G 0 P 0 0 0 0 Immunizations Vaccine Type Date Status Note Provider Nam e and Address Organization Details Recorded Time Influenza, split virus, trivalent, PF 03/22/2024 completed TERESA Mahan, [place] - [facility] 03/22/2024 10:49:31 COVID-19 vaccine, vector-nr, rS-Ad26, PF, 0.5 mL 04/23/2020 completed Not Available [facility] 3 08:53:34 Influenza, split virus, quadrivalent, PF 01/13/2022 completed Not Available [facility] 3 08:53:34 Influenza, split virus, quadrivalent, PF 12/16/2020 completed Not Available [facility] 3 08:53:34 Past Encounters Encounter ID Performer Location Encounter Start Date Encounter Closed Date Diagnosis/Indication Diagnosis SNOMED-CT Code Diagnosis ICD10 Code Diagnosis Note [id number] [facility] [address] [facility] , [place] [address] 04/23/2020 00:00:00 04/24/2020 06:41:54 [id number] [facility] [place] [address] [facility] [address] [place] [address] 12/16/2020 00:00:00 12/16/2020 11:06:47 [id number] [facility] [place] [address] [facility] [address] [place] [address] 12/24/2020 00:00:00 12/24/2020 15:02:31 [id number] [facility] [place] [address] [facility] [address] [place] [address] 01/29/2021 00:00:00 02/12/2021 21:31:30 [id number] [facility] [place] [address] [facility] [address] [place] [address] 04/14/2021 00:00:00 04/14/2021 08:45:58 [id number] [facility] [place] [address] [facility] [address] [place] [address] 08/12/2021 00:00:00 08/12/2021 10:45:[id number] [facility] [address] [address] 01/13/2022 00:00:00 01/13/2022 11:23:[id number] [facility] [address] [address] 04/28/2022 11:57:45 04/28/2022 12:30:11 Iron deficiency anemia 72999998 D50.9 tolerating oral ironrechec k labsin perimenopa use which will likely improve iron deficiency as vaginal bleeding decreases Screening mammography 24 413870 Z12.31 Type 2 ilana betes mellitus 01522250 E11.9 last a1c was 7.2, goal is 7having weight gaincontin ue metformin ER 500 mg 2 tabs daily, tradjenta 5 mg daily and glipizide ER 10 mg dailyadd trulicity 0.75 mg sc qweekre wed potential med s/e and how to use properlyco ntinue ARB and statinf/u in 4 weeks or sooner if needed Weight gain 1667378 R63. 5 [id number] Radha Jules MD [facility] [address] [address] 06/02/2022 10:45:15 06/02/2022 11:07:59 Iron deficiency anemia 89867577 D50.9 iron deficiency somewhat improvedco ntinue oral ironin perimenopa use which will likely improve iron deficiency as vaginal bleeding decreases Type 2 ilana betes mellitus 74926726 E11.9 last a1c was 8, goal is 7having weight gaincontin ue metformin ER 500 mg 2 tabs daily, tradjenta 5 mg daily and glipizide ER 10 mg dailyincre ase trulicity 1.5 mg sc qweekrewed potential med s/e and how to use properlyco ntinue ARB and statinf/u in 4 weeks or sooner if needed [id number] Radha Jules MD [facility] [address] [place] [address] 07/07/2022 10:41:10 07/07/2022 11:04:31 Iron deficiency anemia 97336506 D50.9 iron deficiency somewhat improvedco ntinue oral ironin perimenopa use which will likely improve iron deficiency as vaginal bleeding decreasesc heck labs in 2 months Type 2 ilana betes mellitus 23596632 E11.9 last a1c was 8, goal is 7having weight gaincontin ue metformin ER 500 mg 2 tabs daily, tradjenta 5 mg daily and glipizide ER 10 mg dailyconti nue trulicity 1.5 mg sc qweekrevie wed potential med s/e and how to use properlyco ntinue ARB and [id number] in 2 months [id number] Radha Jules MD [facility] [address] [facility] [address] 10/05/2022 11:36:35 10/05/2022 13:12:[id number] [facility] [address] [facility] [place] [address] 10/07/2022 10:41:02 10/07/2022 10:58:26 Iron deficiency anemia 14749200 D50.9 iron deficiency anemia remains improvedco ntinue oral ironin perimenopa use which will likely improve iron deficiency as vaginal bleeding decreasesr epeat labs in 6 months Type 2 ilana betes mellitus 97665181 E11.9 big improvemen t in a1c at 6.2 with a more reliable result as hemoglobin is also improvedco ntinue metformin ER 500 mg 2 tabs daily, tradjenta 5 mg daily and glipizide ER 10 mg dailyconti nue trulicity 1.5 mg sc qweekrevie wed potential med s/e and how to use properlyco ntinue ARB and statinrepe at labs in 6 months or sooner if needed [id number] Radha Jules MD [facility] [address] [facility] [address] 04/08/2023 11:01:27 04/08/2023 11:50:[id number] [facility] Primary Care [facility] [address] [facility] [address] [place] [address] 06/28/2023 11:50:03 06/28/2023 12:12:14 Vitamin D deficiency 27386619 E55.9 Diabetes mellitus 337548 09 E11.9 d/c glipizide to avoid possible hypoglycem ic events on higher dose trulicitya 1c excellent at 6.8, will increase trulicity 3 mg sc qweek to help with cravings and weight loss Iron defic iency anemia 67617217 D50.9 iron deficiency somewhat improvedco ntinue oral ironin perimenopa use which will likely improve iron deficiency as vaginal bleeding decreasesc heck labs in 2 months 06/28/23: ok to continue oral iron every other dayrepeat labs in 6 months [id number] ARELY Joyce-Rasheed [facility] [address] [place] [address] 10/07/2023 10:55:47 10/07/2023 11:20:12 Type 2 diabetes mellitus 94159579 E11.9 patient requesting to switch from Trulicity to Ozempic. Screening for malignant neoplasm of breast 345409404 Z12.39 Patient is due for mammogram. Cough 51543267 R05.9 dry cough.Disc ussed with patient to take Zyrtec or Claritin daily for two weeks for drainage.P atient will follow up as needed. Loss of hair 631534016 L 65.9 TSH normal on (09/27-Dr. Campoverde) [id number] LINDA Joyce [facility] [address] [facility] [address] 03/22/2024 09:52:10 03/22/2024 10:39:04 Adult health examination 123370291 Z00.00 Discussed medication compliance and routine follow up.Discuss ed healthy diet and routine exercise.R dustiniewed vaccine records and made recommenda tions as needed.Enc ouraged annual eye and dental exams, as well as twice yearly dental cleanings. Will check screening labs as listed below. 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 Diabetes mellitus 724645 09 E11.9 Essential hypertension 12581826 I10 148/78Disc ussed DASH diet and routine exercise. Hyperlipidemia 36100696 E78.5 Will check labs as listed below. Iron defic iency anemia 12516326 D50.9 Will check labs as listed below. Vitamin D deficiency 347 86302 E55.9 Hepatitis C screening 41 2783756 Z11.59 Administra tion of influenza vaccine 91234151 Z23 Type 2 ilana betes mellitus 66657815 E11.9 Will increase Ozempic to 0.5mg weeklyPati ent d/c Tradjenta due to $500 copay. Body mass index 30+ - obesity 443158842 Z68.33 Weight: 182 poundsBMI: 33.3Contin ue with healthy diet and routine exercise. Health Concerns Section Related Observation LastModified by Organization Detai ls LastModified Time None Recorded Concern Status LastModified by Organization Details LastModified Time None Recorded Advance Directives Directive None Recorded Payers Encounter Date Sequence Insurance Name Policy Number Policy Means Covered Member ID Means Member ID Guarantor Name 10/07/2022 1 [facility] ON OR AFTER 02/16/2020 - DUAL ELIGIBLE (MEDICARE REPLACEMENT/A DVANTAGE - HMO) [id number] Salome uRsh [id number] Salome Rush 04/08/2023 1 [facility] ON OR AFTER 02/16/2020 - DUAL ELIGIBLE (MEDICARE REPLACEMENT/A DVANTAGE - HMO) [id number] Salome Rush [id number] Salome Rush 06/28/2023 1 [facility] ON OR AFTER 02/16/2020 - DUAL ELIGIBLE (MEDICARE REPLACEMENT/A DVANTAGE - HMO) [id number] Salome Rush [id number] 1 [id number] Salome Rush 10/07/2023 1 [facility] ON OR AFTER 02/16/2020 - DUAL ELIGIBLE (MEDICARE REPLACEMENT/A DVANTAGE - HMO) [id number] Salome Rush [id number] 1 [id number] 01 Salome Rush 10/07/2023 1 [place] Salome Rush [id number] 3 Salome Rush 03/22/2024 1 [place] Salome Rush [id number] 3 Salome Rush Notes Date Note Type Note Provider Name and Address Organization Details Recorded Time 10/07/2022 text/html felt a bit fatigued with the trulicity 0.75 mg but tolerates it well. no chest pain, no sob update 07/07/22: Has lost weight on trulicity. No chest pain, no sob. update 10/07/22: She continues to work on healthy diet and exercise, tolerating trulicity 1.5 mg sc qweek well. No chest pain or sob. Radha Jules MD [address], [address], [place], [address], [employer] 10/07/2022 10:56:52 06/28/2023 text/html felt a bit fatigued with the trulicity 0.75 mg but tolerates it well. no chest pain, no sob update 07/07/22: Has lost weight on trulicity. No chest pain, no sob. update 10/07/22: She continues to work on healthy diet and exercise, tolerating trulicity 1.5 mg sc qweek well. No chest pain or sob. 06/28/23: a1c 6.8. Tolerating trulicity 1.5 mg sc qweek. Radha Jules MD [address], [address], [place], [address], [employer] 07/04/2023 11:27:14 10/07/2023 text/html Patient is a 52 year old female that presents to the office for follow up. Patient requesting to change from Trulicity to Ozempic for her diabetes for the effects of weight loss. Patient reports she has not gained any weight but is also having difficulty losing weight. Patient reports concerns that her hair is not growing. Patient reports this has been an ongoing issues however she believes it is getting worse and thinks it is maybe medication related. Patient reports she went ot her it analyst last week (Dr. Campoverde) and he ordered thyroid labs however she did not get the results. Patient reports burning sensation to the top of right foot. Patient reports this initially started about one month ago, has slightly improved. Patient does not wish to seek treatment at this time since it is improving. Patient reports dry cough and tickle in through for one week. Patient reports at times it feels like something is in her throat. Patient denies pain and difficutly swallowing. Patient denies other sick symptoms including chest pain and shortness of breath, nausea vomiting and diarrhea. Patient denies ear pain, fevers, chills and body aches. LINDA Joyce [address] [employer] [address], [facility] [address], [place], [address], [employer] 10/07/2023 12:01:07 03/22/2024 text/html Patient is a 53 year old female that presents to the office for annual wellness. Patient reports she is doing well overall and has no concerns at this time including chest pain and shortness of breath. Patient reports anxiety has been bothering her more recently, is currently taking Fluoxetine 40mg daily at bedtime--discontin ued the second dose due to drowsiness. Patient has Clonazepam 1mg twice daily as needed (reports she has taken in 3 times in the last 5 years). Denies SI/HI. diabetic eye-UTDdiabetic foot-UTD labs-orderedWWE- aware, will scheduleMammogram- UTD (09/2023)Colonosco py- UTD (2022)Flu-orderedC ovid-declinesTdap- UTDShingles- UTDPneumo-UTD LINDA Joyce [address], [address], [place], [address], [employer] 03/22/2024 10:34:22 OBGyn Episode No OBEpisode recorded.
--- OUTSIDE RECORDS SUMMARY | 2024-05-23 16:13 | XMS_ITS | Patient Health Record ---
Author Organization [facility] Address [address] [place] [address] Care Team Providers Care Digestion Operator Name Role Phone Ligia Rodríguez Primary Care Provider Unavailabl e YEIMI TIM, KENN Unavailable José CABELLO, Charlene Unavailable Unavailable REASON FOR REFERRAL No Information MEDICATIONS Medication SIG (Take, Route, Frequency, Duration) Notes Start Date End Date Status metFORMIN HCl 1000 MG 1 tablet with a me al Orally Once a day for 30 day(s) Active Candesartan Cilexetil 16 MG 1 tablet Ora lly Once a day for 30 day(s) Active Clopidogrel Bisulfate 75 MG 1 tablet Ora lly Once a day for 30 day(s) Active FLUoxetine HCl 20 MG 1 tablet in the morning Orally Once a day for 30 day(s) Active hydrOXYzine HCl 25 MG 1 tablet as needed Orally every 8 hrs for 30 day(s) Active Fish Oil Not-Taking amLODIPine Besylate 10 MG 1 tablet Orall y Once a day for 30 day(s) Active Metoprolol Tartrate 100 MG 1 tablet with food Orally Twice a day for 30 day(s) Active hydroCHLOROthiazide 25 MG 1 tablet in th e morning Orally Once a day for 30 day(s) Active SOCIAL HISTORY Tobacco Use: Social History Observation Description Date Details (start date - stop date) Never Smoker NA - NA Sex Assigned At : Social History Observation Description Sex Assigned At Unknown Tobacco Use/Smoking Question Answer Notes Are you a nonsmoker PLAN OF TREATMENT Pending Test Test Name Order Date Endoscopic Retrograde Cholangiopancreato graphy (ERCP) 04/25/2018 Insurance Providers Payer Name Payer Address Payer Phone Subscriber Number Group Number Insured Name Patient Relationship to Insured Coverage Start Date Coverage End Date Medicaid-[place] L Medicaid [address] [address] [place], [place] [id number] Victor Manuel Salome Self - patient is the insured MEDICAL (GENERAL) HISTORY Medical History History ICD Code CVA 01/2018 on Plavix Type 2 diabetes Hypertension Dyslipidemia Cholelithiasis SOD/papillary stenosis Surgical History Surgery Date(Month/Year) Cholecystectomy ERCP with Dr. Courtney 05/09 with papillary stenosis s/p biliary and pancreatic sphincterotomies. Dual duct protective stents placed. Stents ultimately removed 05/11/18. Labs 05/10/18 with normal LFTs.
--- OUTSIDE RECORDS SUMMARY | 2024-05-23 16:14 | XMS_ITS | Encounter Summary ---
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 Not on file Not on file documented as of this encounter Plan of Treatment Not on file documented as of this encounter Procedures Procedure Name Priority Date/Time Associated Diagnosis Comments CBC (OUTSIDE LAB) Routine 04/03/2019 COMPREHENSIVE METABOLIC PANEL Routine 04/03/2019 LIPID PANEL Routine 04/03/2019 THYROID STIM HORMONE TSH Routine 04/03/2019 documented in this encounter Results * LIPID PANEL (04/03/2019) CHOLESTEROL 133.8 HDL 45.4 TRIGLYCERIDES 95 LDL (CALCULATED) 71 04/03/2019 us Doc [facility] Final Result * (ABNORMAL) COMPREHENSIVE METABOLIC PANEL (04/03/2019) Pathologist [facility] SODIUM S/P/B 139.8 POTASSIUM S/P/B 4.2 CO2 21.8 CHLORIDE S/P/B 105 GLUCOSE 150 mg/dL CALCIUM S/P/B 9.3 BUN 8 CREATININE S/P/B 0.41(A) 0.5 - 1.0 EGFR NON-AFR. AMER. 176(A) <=90 ALKALINE PHOSPHATASE S/P/B 85.9 ALT 49.7 AST 24.3 BILIRUBIN TOTAL S/P/B 0.4 ALBUMIN S/P/B 4.3 3.5 - 5.0 TOTAL PROTEIN S/P/B 7.1 04/03/2019 us Doc [facility] Final Result * THYROID STIM HORMONE, TSH (04/03/2019) Pathologist [facility] TSH 1.64 0.54.50 04/03/2019 us Doc [facility] Abstract LABORATORY Final Result * CBC (OUTSIDE LAB) (04/03/2019) [facility] WBC 7.2 HGB 11.6 HCT 36.9 PLT 280 04/03/2019 us Doc [facility] Abstract LAB-OUTSIDE/ABSTRACTED Final Result documented in this encounter Visit Diagnoses Not on filedocumented in this encounter Care Teams Housing Liaison Relationship Specialty Start Date End Date Ligia Rodríguez CNP [address] [place] [address] PCP - General NURSE PRACTITIONER 07/16/16 Boogie Rivera MD 3 [facility] [address] [place] [address] Farina Manager Talent CARDIOVASCULAR DISEASE 03/10/19 documented as of this encounter
--- OUTSIDE RECORDS SUMMARY | 2024-05-23 19:03 | XMS_ITS | Clinical Summary ---
Author Organization [facility] Address [address] [place] [address] Care Team Providers Care Acquisitions Analyst Name Role Phone Ligia Rodríguez NP Primary Care Provider [phone] Allergies No known active allergies Medications metFORMIN [...] (05/10/2018): Added automatically from request for surgery [id number] Surgical History Surgery Date Site/Laterality Comments TUBAL [...] on file Legal Sex Female 5:51 AM LICENSED GUIDE Gender Identity Not on file Sexual Orientation [...] on file Medical Devices Explanted Type Area Legislative Analyst Device Identifier Shelf Expiration Date Model / Serial / Lot [employer] 6572 Ponce Flexi-Stent 7fr 5cm Small Pigtail Flexible .035in Stent - [id number] Implanted:Qty : 1 on 05/09/2018 by Keagan Courtney MD at [facility] Explanted:Qty : 1 on 05/11/2018 at [facility] Stent N/A: Pancreas [employer] 02/14/2023 [id number] / / [id number] Conmed Gilbert [id number] [place] Viabil 10mm 8.5fr 6cm 200cm Fully Covered Self Expand Pull - [id number] - [id number] Implanted:Qty : 1 on 05/09/2018 by Keagan Courtney MD at [facility] Explanted:Qty : 1 on 05/11/2018 at [facility] Stent N/A: Bile Duct Conmed Gilbert 03/10/2021 [id number] / [id number] / Insurance MEDICARE [facility] Address: [address] [address] [place] [address] [facility] [place] [address] Advance Directives For more information, please contact: [phone] * Full Code (Latest Code Status on File) Date Activated Date Inactivated Comments 05/11/2018 3:03 PM 05/11/2018 7:10 PM Care Teams Acquisitions Analyst Relationship Specialty Start Date End Date Ligia Rodríguez NP [address] [place] [address] PCP - General Nurse Practitioner 04/03/20
--- OUTSIDE RECORDS SUMMARY | 2024-05-23 19:03 | XMS_ITS | Encounter Summary ---
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 on file Not [...] (ABNORMAL) COMPREHENSIVE METABOLIC PANEL (11/11/2016) Pathologist [facility] SODIUM S/P/B 139 POTASSIUM S/P/B 3.8 CO2 [...] (ABNORMAL) ESR (OUTSIDE LAB) (11/11/2016) Pathologist [facility] SED RATE 25(A) 0 - 20 mm/hr 11/11/2016 us Doc [facility] Abstract LAB-OUTSIDE/ABSTRACTED Final Result * HEMOGLOBIN, GLYCOSYLATED (11/11/2016) Pathologist [facility] HGB A1C 6.7 11/11/2016 us Doc [facility] Abstract LABORATORY Final Result * CBC (OUTSIDE LAB) (07/08/2016) Pathologist [facility] WBC 7.6 HGB 12.2 HCT 37 PLT [...] Result * HEMOGLOBIN, GLYCOSYLATED (07/08/2016) Pathologist [facility] HGB A1C 6.5 07/08/2016 us Doc [facility] Abstract LABORAT[facility] Final Result documented in this encounter Visit Diagnoses Not on filedocumented in this encounter Care Teams Plastic Duplicator Relationship Specialty Start Date End Date Ligia Rodríguez CNP [address] [place] [address] PCP - General NURSE PRACTITIONER 07/16/16 Jag Ibanez MD [address] [place] [address] Mikey Wood Window And Door Craftsman CARDIOVASCULAR DISEASE 07/29/16 03/09/19 Boogie Rivera MD 3 [facility] [address] [place] [address] Mikey Wood Window And Door Craftsman CARDIOVASCULAR DISEASE 03/10/19 documented as of this encounter
--- OUTSIDE RECORDS SUMMARY | 2024-05-23 19:03 | XMS_ITS | Referral Summary ---
Author Organization [facility] Address [address] [place] [address] Care Team Providers Care Horticulture Worker Name Role Phone Ligia Rodríguez NP Primary Care Provider [phone] Allergies No known active allergies Medications metFORMIN [...] (05/10/2018): Added automatically from request for surgery [id number] Social History Tobacco Use Types Packs/Day Years [...] on file Legal Sex Female 5:51 AM DEVOPS ARCHITECT Gender Identity Not on file Sexual Orientation [...] on file Medical Devices Explanted Type Area Bd Special Education Teacher Device Identifier Shelf Expiration Date Model / Serial / Lot [employer] 6572 Ponce Flexi-Stent 7fr 5cm Small Pigtail Flexible .035in Stent - [id number] Implanted:Qty : 1 on 05/09/2018 by Keagan Courtney MD at [facility] Explanted:Qty : 1 on 05/11/2018 at [facility] Stent N/A: Pancreas [employer] 02/14/2023 [id number] / / [id number] [employer]Med Pharm[employer]med Gilbert [id number] [place] Viabil 10mm 8.5fr 6cm 200cm Fully Covered Self Expand Pull - [id number] - [id number] Implanted:Qty : 1 on 05/09/2018 by Keagan Courtney MD at [facility] Explanted:Qty : 1 on 05/11/2018 at [facility] Stent N/A: Bile Duct Conmed Gilbert 03/10/2021 [id number] / [id number] / Insurance MEDICARE [facility] Advance Directives For more information, please contact: [phone] * Full Code (Latest Code Status on File) Date Activated Date Inactivated Comments 05/11/2018 3:03 PM 05/11/2018 7:10 PM Care Teams Horticulture Worker Relationship Specialty Start Date End Date Ligia Rodríguez NP [address] [place] [address] PCP - General Nurse Practitioner 04/03/20
--- OUTSIDE RECORDS SUMMARY | 2024-05-23 19:03 | XMS_ITS | CONTINUITY OF CARE DOCUMENT ---
Author Name claude arce Address Unknown Organization [facility] Address [address] [facility] [address] [place] [address] Phone [phone] Care Team Providers Care Integration Software Developer Name Role Phone Gilles TIM, Moo Unavailable VIRJA PINA MD Unavailable [phone] Salome Plata Unavailable Unavailable PROBLEMS Condition Status Date Provider Notes Cardiology examination active Moo Campoverde MD C V A / Stroke active Moo Campoverde MD (His tory of) Hyperlipidemia active Moo Campoverde MD Hypertension active Moo Campoverde MD Diabetes, Type 2 active Moo Campoverde MD ENCOUNTERS Date Type Provider Location Encounter Diag nosis - In-person encounter Office Visit Moo Campoverde MD [facility] - In-person encounter Office Visit Moo Campoverde MD [facility] - In-person encounter Office Visit Moo Campoverde MD [facility] - In-person encounter Office Visit Moo Campoverde MD [facility] Cardiology examinationC V A / StrokeHyperlipidemia [...] by mouth once a day - Wendy Mikeksamilcar Trulicity 3 mg/0.5 mL pen injector active [...] by mouth twice a day - Wendy Mckeonksamilcar glipizide 10 mg tablet extended release 24hr [...] history of marijuana use no Chuyita Chambers [employer] drug use no Chuyita Chambers [employer] alcohol use no Chuyita Chambers [employer] passive cigarette sm gayle exposure no Chuyita Chambers [employer] chewing tobacco use Never Chuyita jackson [employer] smoking status Never smoker Chuyita Hunter i [employer] social history E&M Marital Statu s: Rasheed [...] social history E&M Marital Statu s: Rasheed sánhcez: 5 O ccupation: Disabled Smoking History: P atient has never smoked. Moo Campoverde MD passive cigarette sm gayle exposure no Stephanie Strange chewing tobacco use Never Stephanie Da byron smoking status Never smoker Stephanie Strange FAMILY HISTORY Family Member Condition First Degree Blood Relative No Known Fam kelli History INSURANCE PROVIDERS Payer name Policy type / Coverage type [place] red constitution party ID [place] Medicare [id number] HEALTHCARE AND FAMILY SERVICES Medicaid 1 [id number] ADVANCE DIRECTIVES Name Date DISCUSSED - NO DECISION MADE TREATMENT PLAN Date Name Performer [id number],SMoo MD [id number],SMoo MD [id number],S, Moo Nuno n [id number],B, Moo Nuno n [id number],S, Moo Nuno n [id number],S, Moo Nuno n [id number],S,No IVONNE Moo Nunofrancine TIM [id number],C,All tests ok. Moo Nunofrancine TIM [id number],S, Moo Nuno n [id number],S, Moo Nuno francine TIM [id number],S, Moo Nuno francine TIM [id number],S, Moo Nuno francine TIM Cardiology: R sided [...]
--- OUTSIDE RECORDS SUMMARY | 2024-05-23 19:03 | XMS_ITS | Clinical Summary ---
Author Organization [facility] Address [facility] [place] [address] Care Team Providers Care Health Safety Instructor Name Role Phone Ligia Rodríguez CNP Primary Care Provider [phone] Boogie Rivera MD Unavailable [phone] Allergies No known active allergies Medications [...] 2018 Overview (04/08/2018): 01/21/2018 - Treated at [facility]. Abnormal EKG 04/08/2018 Overview (04/08/2018): LVH with strain on EKG at [facility] 01/2018 when admitted for CVA Pt had Echo at [facility] 01/2018. Normal LV systolic function and no focal WMAs Obesity (BMI 30.0-34.9) 08/03/2016 Hyperglycemia 08/03/2016 Mixed hyperlipidemia 08/03/2016 DANE-inhibitor cough 08/03/2016 Type 2 diabetes mellitus wit hout complication, without long-term current use of insulin (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
--- OUTSIDE RECORDS SUMMARY | 2024-05-23 19:03 | XMS_ITS | Encounter Summary ---
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 on file Not [...] * (ABNORMAL) COMPREHENSIVE METABOLIC PANEL (04/03/2019) Pathologist [facility] SODIUM S/P/B 139.8 POTASSIUM S/P/B 4.2 CO2 [...] * THYROID STIM HORMONE, TSH (04/03/2019) Pathologist [facility] TSH 1.64 0.54.50 04/03/2019 us Doc [facility] LABORATORY Final Result * CBC (OUTSIDE LAB) (04/03/2019) [facility] WBC 7.2 HGB 11.6 HCT 36.9 PLT 280 04/03/2019 us Doc [facility] Abstract LAB-OUTSIDE/ABSTRACTED Final Result documented in this encounter Visit Diagnoses Not on filedocumented in this encounter Care Teams Leader Tier Relationship Specialty Start Date End Date Ligia Rodríguez CNP [address] [place] [address] PCP - General NURSE PRACTITIONER 07/16/16 Boogie Rivera MD 3 [facility] [address] [place] [address] [place] Heater CARDIOVASCULAR DISEASE 03/10/19 documented as of this encounter
--- OUTSIDE RECORDS SUMMARY | 2024-05-23 19:03 | XMS_ITS | Clinical Summary ---
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 on file Not on file Last Filed Vital Signs Vital Sign Reading Time Taken Comments Blood Pressure 118/68 03/15/2018 2:58 PM MANAGER STATE Pulse 58 03/15/2018 2:58 PM MANAGER STATE Temperature - - Respiratory Rate - - Oxygen Saturation 98% 03/15/2018 2:58 PM MANAGER STATE Inhaled Oxygen Concentration - - Weight 74.8 kg (165 lb) 03/15/2018 2:58 PM MANAGER STATE Height 157.5 cm (5' 2 ) 03/15/2018 2:58 PM MANAGER STATE Body Mass Index 30.18 03/15/2018 2:58 PM MANAGER STATE Plan of Treatment Health Maintenance Due Date [...] PANEL ACUTE (AHP) Routine 03/15/2018 3:51 PM MANAGER STATE Elevated liver enzymes Need for hepatitis C screening test from Last 3 Months or Most Recently Relevant to Health Maintenance Results * HEPATITIS PANEL ACUTE (AHP) (03/15/2018 3:51 PM MANAGER STATE) HEPATITIS A IGM ANTIBODY NON DETECTED NON DETECTED 03/16/2018 2:53 PM MANAGER STATE [facility] Comment: IGM Antibodies to HAV not detected. Does not exclude early acute or recovered HAV infection. HEP B CORE AB (IGM) NON DETECTED NON DETECTED 03/16/2018 2:53 PM MANAGER STATE [facility] Comment: IGM anti-HBC not detected. Does not exclude the possibility of exposure to or infection with HBV. HEPATITIS B SURFACE ANTIGEN NON DETECTED NON DETECTED 03/16/2018 2:53 PM MANAGER STATE [facility] Comment: A nonreactive test result does not [...] antibody 0.11 <1 S/CO 03/16/2018 2:53 PM MANAGER STATE [facility] Comment: Signal/Cutoff ratio < 0.79 is Nondetected Signal/Cutoff ratio 0.80-0.99 is Grayzone Signal/Cutoff ratio > 0.99 is Detected Supplemental assays are recommended if signal/cutoff ratio is >/=1.00. Signal/cutoff ratio result >/= 5.00 is 97% predictive of positivity for recombinant immunoblot assay (RIBA) and will be reported to the [place] Department of Public [facility] as required. Blood specimen (specimen) Venipuncture / Unknown 03/15/2018 3:51 PM MANAGER STATE 03/15/2018 4:26 PM MANAGER STATE us Charlene Kumar CAR DISPATCHER, ACCOUNTS PAYABLE LEAD HEMATOLOGY ORDERA BLES Final Result [facility] [address] [place] [address], [place] from Last 3 Months or Most Recently Relevant to Health Maintenance Care Teams Grinder Outside Diameter Relationship Specialty Start Date End Date Ligia Rodríguez APRN [address] [place] [address] PCP - General Advanced Practice Nurse 01/03/18
--- OUTSIDE RECORDS SUMMARY | 2024-05-23 19:03 | XMS_ITS | Clinical Summary ---
Author Organization [facility] [employer] Address [address] [place] [address] Care Team Providers Care Sand Digger Name Role Phone Radha Jules MD Primary Care Provider [phone] Source Comments [facility] [employer],non-owned Affiliates and Associated Physician Practices is amultiple site organization consisting of ambulatory clinics and hospital sitesin [place], [place], [place] and [place]. This disclosure is being madepursuant to the Care Everywhere program and may not contain all information available regarding this patient. Last updated 17[employer] Allergies No known active allergies Medications * [...] in afternoon and 2 pills at night- [phone] 120 capsule 5 03/19/2020 Active Active Problems [...] Comments Blood Pressure 119/71 03/19/2020 3:39 PM CUSTOMER SUPPORT ENGINEER Pulse 80 03/19/2020 3:39 PM CUSTOMER SUPPORT ENGINEER Temperature 36.2 C (97.1 F) 03/19/2020 3:39 PM CUSTOMER SUPPORT ENGINEER Respiratory Rate 18 01/25/2018 12:01 PM CUSTOMER SUPPORT ENGINEER Oxygen Saturation 97% 01/25/2018 12:01 PM CUSTOMER SUPPORT ENGINEER Inhaled Oxygen Concentration - - Weight 82.6 kg (182 lb) 03/19/2020 3:39 PM CUSTOMER SUPPORT ENGINEER Height 157.5 cm (5' 2 ) 03/19/2020 3:39 PM CUSTOMER SUPPORT ENGINEER Body Mass Index 33.29 03/19/2020 3:39 PM CUSTOMER SUPPORT ENGINEER Plan of Treatment Health Maintenance Due Date [...] POINT OF CARE Routine 01/25/2018 2:07 AM CUSTOMER SUPPORT ENGINEER from Last 3 Months or Most Recently Relevant to Health Maintenance Results * GLUCOSE - POINT OF CARE (01/25/2018 2:07 AM CUSTOMER SUPPORT ENGINEER) Glucose WB/POC 113 70 - 115 mg/dL 01/25/2018 2:08 AM CUSTOMER SUPPORT ENGINEER [facility] Specimen Type Arterial/C apillary 01/25/2018 2:08 AM CUSTOMER SUPPORT ENGINEER [facility] Blood BLOOD SPECIMEN / Unknown 01/25/2018 2:07 AM CUSTOMER SUPPORT ENGINEER 01/25/2018 2:08 AM CUSTOMER SUPPORT ENGINEER Narrative [facility] - 01/25/2018 2:08 AM CUSTOMER SUPPORT ENGINEER [employer] Coremaker: KYARA ARRIAGA Brandon Quintana MD LAB - POINT OF CARE ORDERABLES [facility] [address] [place] [address], [place] [phone] from Last 3 Months or Most Recently Relevant to Health Maintenance Advance Directives * Full Code (Latest Code Status on File) Date Activated Date Inactivated Comments 01/21/2018 6:14 PM 01/25/2018 3:51 PM Care Teams Sand Digger Relationship Specialty Start Date End Date Radha Jules MD [address] [place] [id number] PCP - General 03/04/21
[2024-05-23 20:01] VITALS: BP 115/73; PULSE 68; RESP 16; TEMP 36.7; O2SAT 100
== END 2024-05-23 20:00 | disposition home or self-care (01) ==
PROVIDERS: Emergency Provider Emergency Medicine; PCP Nurse Practitioner Family
DX: M54.31 Sciatica, right side (principal); M47.816 Spondylosis without myelopathy or radiculopathy, lumbar region; E11.9 Type 2 diabetes mellitus without complications; E78.5 Hyperlipidemia, unspecified; I10 Essential (primary) hypertension; Z86.73 Personal history of transient ischemic attack (TIA), and cerebral infarction without residual deficits
CPT/HCPCS: 72131; 99284